=== PATIENT | male | born 1940 | race Caucasian/White ===

== ENCOUNTER → 2016-03-12 | Outpatient (CLI) | payer MEDICARE, OTHER ==
[~2016-03-12] MED LIST: CPR500T PO; DICL50TA6 PO
[2016-03-12 13:02] LABS: BASOPHILS % (AUTO) 0 % (0-10); EOSINOPHILS # (AUTO) 0.2 10^3/uL (0.0-0.3); EOSINOPHILS % (AUTO) 2 % (0-10); LYMPHOCYTES # (AUTO) 1.8 X 10^3 (1.0-4.0); LYMPHOCYTES % (AUTO) 22 % (12-44); MEAN CORPUSCULAR HEMOGLOBIN 32 PG (25-34); MEAN CORPUSCULAR HGB CONC 34 G/DL (32-36); MEAN CORPUSCULAR VOLUME 93 FL (80-99); MEAN PLATELET VOLUME 9.7 FL (7.4-10.4); MONOCYTES # (AUTO) 0.5 X 10^3 (0.0-1.0); MONOCYTES % (AUTO) 6 % (0-12); NEUTROPHILS # (AUTO) 5.9 X 10^3 (1.8-7.8); NEUTROPHILS % (AUTO) 70 % (42-75); PLATELET COUNT 248 10^3/uL (130-400); RED BLOOD COUNT 5.02 10^6/uL (4.35-5.85); RED CELL DISTRIBUTION WIDTH 13.6 % (10.0-14.5); WHITE BLOOD COUNT 8.4 10^3/uL (4.3-11.0)
[2016-03-12 13:44] LABS: ALBUMIN 4.1 G/DL (3.2-4.5); BILIRUBIN,TOTAL 0.6 MG/DL (0.1-1.0); CALCIUM 9.2 MG/DL (8.5-10.1); CREATININE SERUM 1.39 MG/DL (0.60-1.30); POTASSIUM 4.5 MMOL/L (3.6-5.0)
== END ==
LOC: ONC 12:46
PROVIDERS: ATTEND Internal Medicine Hematology & Oncology
DX: Z08 Encounter for follow-up examination after completed treatment for malignant neoplasm (principal); Z85.820 Personal history of malignant melanoma of skin; N18.3 Chronic kidney disease, stage 3 (moderate); M54.5 Low back pain
CPT/HCPCS: 36415; 80053; 83615; 85025; 99213

== ENCOUNTER 2016-06-22 05:41 | Outpatient (CLI) | payer MEDICARE, OTHER ==
[~2016-06-22] VITALS: Ht 177.8 cm; Wt 103.0 kg
[~2016-06-22 05:41] MED LIST changes: -DICL50TA6 PO
[2016-06-22] MEDS ORDERED: DICL50TA6 PO ×2 (10:07)
== END 2016-06-22 10:13 ==
LOC: PREOP 05:41
PROVIDERS: ATTEND Surgery Pediatric Surgery
DX: Z01.818 Encounter for other preprocedural examination (principal); Z12.11 Encounter for screening for malignant neoplasm of colon

== ENCOUNTER 2016-06-24 09:30 | Day surgery (SDC) | payer MEDICARE, OTHER ==
[~2016-06-24] VITALS: Ht 177.8 cm; Wt 103.0 kg
[~2016-06-24 09:30] MED LIST changes: +DICL50TA6 PO
[2016-06-24] MEDS ORDERED: NS IV 500 ML 500 ML ONE (09:38)
[2016-06-24 09:40] VITALS: BP 157/101
[2016-06-24] MEDS ORDERED: NALOXONE 0.4 MG/ML 1 ML (NARCAN) VIAL IVP PRN (09:45)
[2016-06-24] MEDS ORDERED: FLUMAZENIL (ROMAZICON) 0.1 MG/ML 5 ML VIAL INJ PRN (09:45)
[2016-06-24] MEDS ORDERED: NS IV 500 ML 500 ML IV ONE (09:45)
[2016-06-24] MEDS ORDERED: LIDOCAINE JELLY 2% (XYLOCAINE) 5 ML TUBE ONE (10:04)
[2016-06-24] MEDS ORDERED: fentaNYL INJECTION 100 MCG/2 ML AMP ONE ×2 (10:05)
[2016-06-24] MEDS ORDERED: MIDAZOLAM 2 MG/2 ML (VERSED) VIAL ONE ×4 (10:05)
--- NOTE | 2016-06-24 10:15 | Conscious Sedation/ASA ---
Conscious Sedation Pre-Proced Time Reviewed: 09:50 ASA Class: 2 Airway Mallampati Classification: ([facility] appropriate class) I. II. III, IV Lungs Heart ASA score ASA 1: a normal healthy patient ASA 2: a patient with a mild systemic disease (mid diabetes, controlled hypertension, obesity ASA 3: a patient with a severe systemic disease that limits activity (angina , COPD, prior Myocardial infarction) ASA 4: a patient with an incapacitating disease that is a constant threat to life (CHF, renal failure) ASA 5: a moribund patient not expected to survive 24 hrs. (ruptured aneurysm) ASA 6: a declared brain patient whose organs are being harvested. For emergent operations, add the letter E after the classification Grade 2 Sedation Plan: Analgesia, Amnesia, Plan communicated to team members, Discussed options with patient/fam, Discussed risks with patient/fam Note The patient is an appropriate candidate to undergo the planned procedure, sedation, and anesthesia. The patient immediately re-assessed prior to indication. YENNIFER JAMES MD June 24, 2016 10:15 am
--- NOTE | 2016-06-24 10:16 | Progress Note-Pre Operative ---
Pre-Operative Progress Note H&P Reviewed The H&P was reviewed, patient examined and no changes noted. Date H&P Reviewed: June 24, 2016 Time H&P Reviewed: 09:50 Pre-Operative Diagnosis: screening colonoscopy YENNIFER JAMES MD June 24, 2016 10:16 am
[2016-06-24] MEDS: fentaNYL INJECTION 100 MCG/2 ML AMP IVP PRN ×2 (10:20→10:30)
[2016-06-24] MEDS: MIDAZOLAM 2 MG/2 ML (VERSED) VIAL IVP PRN ×3 (10:28→10:35)
[2016-06-24] MEDS ORDERED: HYDROcodone/APAP 5 MG/325 MG (LORTAB) TAB PO PRN (10:30)
[2016-06-24] MEDS ORDERED: ACETAMINOPHEN 325 MG TABLET/CAPLET (TYLENOL) PO PRN (10:30)
[2016-06-24] MEDS ORDERED: ONDANSETRON 4 MG/2 ML (SDV) Z0FRAN IV PRN (10:30)
[2016-06-24] MEDS ORDERED: morphine INJ 10 MG/ML 1ML (SYR OR VIAL) IV PRN (10:30)
--- NOTE | 2016-06-24 10:55 | Progress Note-Post Operative ---
Post-Operative Progess Note Surgeon (s)/Custom Van Converter (s) Surgeon YENNIFER JAMES MD Custom Van Converter: none Pre-Operative Diagnosis screening colonoscopy Post-Operative Diagnosis mild chronic stage 2 ext and int hemorrhoids, moderate sigmoid and descending diverticulosis. Procedure & Operative Findings Date of Procedure 06/24/16 Procedure Preformed/Findings Colonoscopy Anesthesia Type CS Estimated Blood Loss Estimated blood loss (mL): minimal Specimens/Packing Specimens Removed none Packing: none YENNIFER JAMES MD June 24, 2016 10:55 am
--- NOTE | 2016-06-24 10:56 | Discharge Inst-Surgical ---
D/C Lap Instructions-JACOB Follow Up Appt in 2 weeks Activity as tolerated High Fiber Diet 25g or more per day Avoid Alcohol, Caffeine, Spicy [place] and Acid foods. Drink 64 fluid oz or more of fluids per day. Symptoms to Report: Fever over 101 degree F, Nausea/Vomiting If any problems/questions: Contact your physician or go to Emergency Room YENNIFER JAMES MD June 24, 2016 10:56 am
--- NOTE | 2016-06-24 10:57 | Discharge Inst-Surgical ---
D/C Lap Instructions-JACOB Follow Up 10 years Activity as tolerated High Fiber Diet 25g or more per day Avoid Alcohol, Caffeine, Spicy [place] and Acid foods. Drink 64 fluid oz or more of fluids per day. Symptoms to Report: Fever over 101 degree F, Nausea/Vomiting If any problems/questions: Contact your physician or go to Emergency Room YENNIFER JAMES MD June 24, 2016 10:57 am
[2016-06-24 11:10] VITALS: BP 148/99
[2016-06-24 11:15] VITALS: BP 143/99
[2016-06-24 11:40] VITALS: BP 157/98
--- NOTE | 2016-06-24 11:59 | OPERATIVE REPORT ---
DATE OF SERVICE: 06/24/2016 PREOPERATIVE DIAGNOSIS: Screening colonoscopy. POSTOPERATIVE DIAGNOSIS: 1. Chronic stage II external and internal hemorrhoids. 2. Moderate sigmoid and descending colonic diverticulosis. PROCEDURE: Colonoscopy. SURGEON: Dr. James ANESTHESIA: Conscious sedation. ESTIMATED BLOOD LOSS: Minimal. FINDINGS: Chronic stage II external and internal hemorrhoids, not actively edematous nor inflamed and no bleeding. Prostate gland was palpable and appeared normal. There was a moderate severity diverticulosis of the sigmoid and descending colon with no mucosal inflammatory change to indicate any active diverticulitis. There were no polyps identified. DISPOSITION: The patient tolerated the procedure well. The patient is a 76-year-old male in need of a followup colonoscopy. He states that he is doing well and does not report any bowel change and for the most part does not have any major issues of diarrhea nor constipation, as well as no red blood per rectum nor any dark tarry stools. His last colonoscopy was in 2003 which he states was normal. He also does not report any family history of colon cancer. The patient was brought to the endoscopy suite, laid in the left lateral decubitus position. After adequate IV pain and sedative medications and conscious sedation anesthesia, a digital rectal examination was performed. Mild chronic stage II external and internal hemorrhoids were identified which were not actively edematous nor inflamed and no bleeding. Normal sphincter tone was felt and there were no palpable masses. Prostate gland was palpable and appeared normal. The endoscope was then intubated into the anus and rectum and gently insufflated. The endoscope was then advanced to the valves of Arriola up the rectum with no polyps or any neoplasms identified. Through the sigmoid colon, a moderate sigmoid diverticulosis identified. This diverticulosis did extend into the descending colon as well as the splenic flexure. There were no mucosal inflammatory changes to indicate any active diverticulitis. The endoscope was then advanced through the remainder of the transverse and ascending colon to the cecum. These segments were normal. There were no polyps or any neoplasms identified throughout the colon or rectum. The endoscope was then slowly withdrawn when taking a second look and suctioning of residual air with no additional findings. The patient tolerated the procedure well. We will have him continue with medical management with a high fiber diet with at least 30 grams of fiber per day as well as at least 64 fluid ounces of water daily to promote soft stools on a daily basis. He does not need another colonoscopy for another 10 years; however, sooner if any problems arise. Job ID: [id number] DocumentID: [id number] Dictated Date: 06/24/2016 10:53:56 Mechanical Adjuster Date: 06/24/2016 11:59:34 Dictated By: YENNIFER JAMES MD
[2016-06-24 12:00] VITALS: BP 157/98
== END 2016-06-24 12:00 | disposition home or self-care (01) ==
LOC: ENDO 09:30
PROVIDERS: ATTEND Surgery Pediatric Surgery
DX: Z12.11 Encounter for screening for malignant neoplasm of colon (principal); K57.32 Diverticulitis of large intestine without perforation or abscess without bleeding; Z96.641 Presence of right artificial hip joint; Z85.820 Personal history of malignant melanoma of skin; Z79.899 Other long term (current) drug therapy

== ENCOUNTER → 2017-03-25 | Outpatient (CLI) | payer MEDICARE, OTHER ==
[2017-03-25 13:56] LABS: BASOPHILS % (AUTO) 0 % (0-10); EOSINOPHILS # (AUTO) 0.1 10^3/uL (0.0-0.3); EOSINOPHILS % (AUTO) 1 % (0-10); HEMATOCRIT 48 % (40-54); HEMOGLOBIN 16.2 G/DL (13.3-17.7); LYMPHOCYTES # (AUTO) 1.8 X 10^3 (1.0-4.0); LYMPHOCYTES % (AUTO) 13 % (12-44); MEAN CORPUSCULAR HEMOGLOBIN 32 PG (25-34); MEAN CORPUSCULAR HGB CONC 34 G/DL (32-36); MEAN CORPUSCULAR VOLUME 95 FL (80-99); MEAN PLATELET VOLUME 9.8 FL (7.4-10.4); MONOCYTES # (AUTO) 0.9 X 10^3 (0.0-1.0); MONOCYTES % (AUTO) 7 % (0-12); NEUTROPHILS # (AUTO) 10.8 X 10^3 (1.8-7.8); NEUTROPHILS % (AUTO) 79 % (42-75); PLATELET COUNT 234 10^3/uL (130-400); RED BLOOD COUNT 5.03 10^6/uL (4.35-5.85); RED CELL DISTRIBUTION WIDTH 13.4 % (10.0-14.5); WHITE BLOOD COUNT 13.7 10^3/uL (4.3-11.0)
[2017-03-25 14:18] LABS: ALBUMIN 3.9 GM/DL (3.2-4.5); BILIRUBIN,TOTAL 0.7 MG/DL (0.1-1.0); CALCIUM 9.5 MG/DL (8.5-10.1); CREATININE SERUM 1.33 MG/DL (0.60-1.30); POTASSIUM 4.5 MMOL/L (3.6-5.0); TOTAL PROTEIN 6.8 GM/DL (6.4-8.2)
== END ==
LOC: ONC 13:35
PROVIDERS: ATTEND Internal Medicine Hematology & Oncology
DX: Z08 Encounter for follow-up examination after completed treatment for malignant neoplasm (principal); Z85.820 Personal history of malignant melanoma of skin; N18.3 Chronic kidney disease, stage 3 (moderate)
CPT/HCPCS: 36415; 80053; 83615; 85025; 99213

== ENCOUNTER 2017-11-11 13:44 | Outpatient (RCR) | payer MEDICARE, OTHER | END 2017-11-15 07:39 | disposition home or self-care (01) | PROVIDERS: ATTEND Physician Assistant | DX: M54.5 Low back pain (principal) ==

== ENCOUNTER 2017-11-18 10:20 | Outpatient (RCR) | payer MEDICARE, OTHER | END 2017-11-18 11:43 | disposition home or self-care (01) | PROVIDERS: ATTEND Physician Assistant | DX: M54.5 Low back pain (principal) ==

== ENCOUNTER → 2018-03-24 | Outpatient (CLI) | payer MEDICARE, OTHER | LOC: ONC 12:50 | PROVIDERS: ATTEND Internal Medicine Hematology & Oncology | DX: Z08 Encounter for follow-up examination after completed treatment for malignant neoplasm (principal); Z85.820 Personal history of malignant melanoma of skin; Z96.641 Presence of right artificial hip joint; Z79.899 Other long term (current) drug therapy | CPT/HCPCS: 99213 ==

== ENCOUNTER → 2019-02-06 | Outpatient (CLI) | payer MEDICARE, OTHER ==
[2019-02-06 12:10] LABS: BASOPHILS % (AUTO) 0 % (0-10); EOSINOPHILS # (AUTO) 0.1 10^3/uL (0.0-0.3); EOSINOPHILS % (AUTO) 2 % (0-10); HEMATOCRIT 48 % (40-54); HEMOGLOBIN 15.7 G/DL (13.3-17.7); LYMPHOCYTES # (AUTO) 1.3 X 10^3 (1.0-4.0); LYMPHOCYTES % (AUTO) 24 % (12-44); MEAN CORPUSCULAR HEMOGLOBIN 32 PG (25-34); MEAN CORPUSCULAR HGB CONC 33 G/DL (32-36); MEAN CORPUSCULAR VOLUME 96 FL (80-99); MEAN PLATELET VOLUME 9.9 FL (7.4-10.4); MONOCYTES # (AUTO) 0.7 X 10^3 (0.0-1.0); MONOCYTES % (AUTO) 12 % (0-12); NEUTROPHILS # (AUTO) 3.6 X 10^3 (1.8-7.8); NEUTROPHILS % (AUTO) 63 % (42-75); PLATELET COUNT 201 10^3/uL (130-400); RED CELL DISTRIBUTION WIDTH 13.7 % (10.0-14.5); WHITE BLOOD COUNT 5.7 10^3/uL (4.3-11.0)
[2019-02-06 12:29] LABS: BUN/CREATININE RATIO 15; CALCIUM 8.9 MG/DL (8.5-10.1); CARBON DIOXIDE 22 MMOL/L (21-32); CHLORIDE 105 MMOL/L (98-107); CREATININE SERUM 1.05 MG/DL (0.60-1.30); GFR ESTIMATED > 60; GLUCOSE 97 MG/DL (70-105); POTASSIUM 3.9 MMOL/L (3.6-5.0); SODIUM 139 MMOL/L (135-145)
== END ==
LOC: LAB 11:48
PROVIDERS: ATTEND Nurse Practitioner
DX: R19.7 Diarrhea, unspecified (principal); Z79.2 Long term (current) use of antibiotics
CPT/HCPCS: 36415; 80048; 82274; 85025; 87015; 87045; 87046; 87324; 87328; 87329; 87449; 87899

== ENCOUNTER → 2019-03-23 | Outpatient (CLI) | payer MEDICARE, OTHER | LOC: ONC 09:36 | PROVIDERS: ATTEND Internal Medicine Hematology & Oncology | DX: Z08 Encounter for follow-up examination after completed treatment for malignant neoplasm (principal); Z85.820 Personal history of malignant melanoma of skin; Z96.641 Presence of right artificial hip joint; Z79.899 Other long term (current) drug therapy | CPT/HCPCS: 99213 ==

== ENCOUNTER → 2019-04-17 | Outpatient (RCR) | payer MEDICARE, OTHER | END | disposition home or self-care (01) | PROVIDERS: ATTEND Nurse Practitioner | DX: M25.511 Pain in right shoulder (principal) ==

== ENCOUNTER 2019-05-02 11:09 | Outpatient (RCR) | payer MEDICARE, OTHER | END 2019-07-23 | disposition home or self-care (01) | PROVIDERS: ATTEND Nurse Practitioner | DX: M25.511 Pain in right shoulder (principal) ==

== ENCOUNTER → 2019-07-06 | Outpatient (CLI) | payer MEDICARE, OTHER ==
--- NOTE | 2019-07-06 15:02 | Diagnostic Imaging Report ---
EXAMINATION: Chest 2 view HISTORY: Shoulder surgery next week. Preop. COMPARISON: Chest radiograph on 01/10/2014. FINDINGS: The lung volumes are normal. No focal consolidation is seen. No large pleural effusion or pneumothorax is seen. The cardiomediastinal silhouette is normal in size and contour. No acute osseous abnormality is seen. Skin hong are seen in the left axilla. IMPRESSION: 1. No acute pleuroparenchymal process. Dictated by: Dictated on workstation # [id number]
== END ==
LOC: RAD 14:13
PROVIDERS: ATTEND Internal Medicine
DX: Z01.811 Encounter for preprocedural respiratory examination (principal); R91.8 Other nonspecific abnormal finding of lung field
CPT/HCPCS: 71046

== ENCOUNTER 2019-10-09 08:00 | Outpatient (RCR) | payer MEDICARE, OTHER | END 2019-10-10 14:33 | disposition home or self-care (01) | PROVIDERS: ATTEND Orthopaedic Surgery | DX: Z47.1 Aftercare following joint replacement surgery (principal); Z96.611 Presence of right artificial shoulder joint ==

== ENCOUNTER 2019-11-03 09:00 | Outpatient (RCR) | payer MEDICARE, OTHER | END 2020-01-10 | disposition home or self-care (01) | PROVIDERS: ATTEND Physician Assistant | DX: M54.5 Low back pain (principal) ==

== ENCOUNTER 2020-01-26 11:23 | Outpatient (RCR) | payer MEDICARE, OTHER | END 2020-03-24 | disposition home or self-care (01) | PROVIDERS: ATTEND Nurse Practitioner Family | DX: Z96.612 Presence of left artificial shoulder joint (principal) ==

== ENCOUNTER → 2020-04-09 | Outpatient (CLI) | payer MEDICARE, OTHER ==
[2020-04-09 09:03] LABS: BASOPHILS % (AUTO) 1 % (0-10); EOSINOPHILS # (AUTO) 0.1 10^3/uL (0.0-0.3); EOSINOPHILS % (AUTO) 2 % (0-10); HEMATOCRIT 46 % (40-54); HEMOGLOBIN 15.2 g/dL (13.3-17.7); LYMPHOCYTES # (AUTO) 1.3 10^3/uL (1.0-4.0); LYMPHOCYTES % (AUTO) 18 % (12-44); MEAN CORPUSCULAR HEMOGLOBIN 32 pg (25-34); MEAN CORPUSCULAR HGB CONC 33 g/dL (32-36); MEAN CORPUSCULAR VOLUME 96 fL (80-99); MEAN PLATELET VOLUME 9.9 fL (9.0-12.2); MONOCYTES # (AUTO) 0.7 10^3/uL (0.0-1.0); MONOCYTES % (AUTO) 9 % (0-12); NEUTROPHILS # (AUTO) 5.1 10^3/uL (1.8-7.8); NEUTROPHILS % (AUTO) 70 % (42-75); PLATELET COUNT 221 10^3/uL (130-400); WHITE BLOOD COUNT 7.2 10^3/uL (4.3-11.0)
[2020-04-09 09:28] LABS: ALBUMIN 4.1 GM/DL (3.2-4.5); BILIRUBIN,TOTAL 0.8 MG/DL (0.1-1.0); CALCIUM 9.3 MG/DL (8.5-10.1); CREATININE SERUM 1.25 MG/DL (0.60-1.30); POTASSIUM 4.4 MMOL/L (3.6-5.0); TOTAL PROTEIN 6.9 GM/DL (6.4-8.2)
== END ==
LOC: ONC 08:51
PROVIDERS: ATTEND Internal Medicine Hematology & Oncology
DX: C43.62 Malignant melanoma of left upper limb, including shoulder (principal); Z96.611 Presence of right artificial shoulder joint; Z96.612 Presence of left artificial shoulder joint; N18.30 Chronic kidney disease, stage 3 unspecified
CPT/HCPCS: 80053; 83615; 85025; G0463; 99213

== ENCOUNTER 2020-08-15 08:44 | Outpatient (RCR) | payer MEDICARE, OTHER | END 2020-08-21 | disposition home or self-care (01) | PROVIDERS: ATTEND Physician Assistant | DX: M54.16 Radiculopathy, lumbar region (principal) ==

== ENCOUNTER 2020-09-10 15:15 | Outpatient (RCR) | payer MEDICARE, OTHER | END 2020-11-26 | disposition home or self-care (01) | PROVIDERS: ATTEND Physician Assistant | DX: M54.16 Radiculopathy, lumbar region (principal) ==

== ENCOUNTER → 2020-12-12 | Outpatient (CLI) | payer MEDICARE, OTHER | LOC: LABNPT 08:13 | PROVIDERS: ATTEND Internal Medicine | DX: R05.9 Cough, unspecified (principal); R09.89 Other specified symptoms and signs involving the circulatory and respiratory systems; Z20.822 Contact with and (suspected) exposure to COVID-19 | CPT/HCPCS: 87635 ==

== ENCOUNTER 2021-05-14 10:47 | Outpatient (RCR) | payer MEDICARE, OTHER | END 2021-05-15 | disposition home or self-care (01) | PROVIDERS: ATTEND Anesthesiology Pain Medicine | DX: M47.816 Spondylosis without myelopathy or radiculopathy, lumbar region (principal); M41.00 Infantile idiopathic scoliosis, site unspecified; M51.36 Other intervertebral disc degeneration, lumbar region ==

== ENCOUNTER 2021-06-13 11:08 | Outpatient (RCR) | payer MEDICARE, OTHER | END 2021-06-14 | disposition home or self-care (01) | PROVIDERS: ATTEND Anesthesiology Pain Medicine | DX: M47.816 Spondylosis without myelopathy or radiculopathy, lumbar region (principal); M51.36 Other intervertebral disc degeneration, lumbar region; M41.00 Infantile idiopathic scoliosis, site unspecified ==

== ENCOUNTER 2021-07-04 14:20 | Outpatient (RCR) | payer MEDICARE, OTHER | END 2021-07-15 | disposition home or self-care (01) | PROVIDERS: ATTEND Anesthesiology Pain Medicine | DX: M51.36 Other intervertebral disc degeneration, lumbar region (principal); M47.816 Spondylosis without myelopathy or radiculopathy, lumbar region; M41.00 Infantile idiopathic scoliosis, site unspecified ==

== ENCOUNTER 2021-08-13 08:55 | Outpatient (RCR) | payer MEDICARE, OTHER | END 2021-08-14 | disposition home or self-care (01) | PROVIDERS: ATTEND Anesthesiology Pain Medicine | DX: M47.816 Spondylosis without myelopathy or radiculopathy, lumbar region (principal); M51.36 Other intervertebral disc degeneration, lumbar region; M41.00 Infantile idiopathic scoliosis, site unspecified ==

== ENCOUNTER 2021-09-03 10:56 | Outpatient (RCR) | payer MEDICARE, OTHER | END 2021-09-14 | disposition home or self-care (01) | PROVIDERS: ATTEND Anesthesiology Pain Medicine | DX: M47.816 Spondylosis without myelopathy or radiculopathy, lumbar region (principal); M51.36 Other intervertebral disc degeneration, lumbar region; M41.00 Infantile idiopathic scoliosis, site unspecified ==

== ENCOUNTER → 2021-10-15 | Outpatient (RCR) | payer MEDICARE, OTHER | END | disposition home or self-care (01) | PROVIDERS: ATTEND Anesthesiology Pain Medicine | DX: M51.36 Other intervertebral disc degeneration, lumbar region (principal); M47.816 Spondylosis without myelopathy or radiculopathy, lumbar region; M41.00 Infantile idiopathic scoliosis, site unspecified ==

== ENCOUNTER 2021-11-12 08:40 | Outpatient (RCR) | payer MEDICARE, OTHER | END 2021-11-14 | disposition home or self-care (01) | PROVIDERS: ATTEND Anesthesiology Pain Medicine | DX: M47.816 Spondylosis without myelopathy or radiculopathy, lumbar region (principal); M51.36 Other intervertebral disc degeneration, lumbar region; M41.00 Infantile idiopathic scoliosis, site unspecified ==

== ENCOUNTER → 2021-11-20 | Outpatient (CLI) | payer MEDICARE, OTHER ==
--- NOTE | 2021-11-20 16:12 | Diagnostic Imaging Report ---
Indication: Cough. Time of Exam: 2:14 PM Correlation is made with prior chest 07/06/2019. Heart size stable. Lungs are clear. No infiltrates are seen. There is no effusion or pneumothorax. There are surgical clips in the left axilla. Postoperative changes of the bilateral shoulders are noted. IMPRESSION: No acute cardiopulmonary process is detected. Dictated by: Dictated on workstation # [id number]
== END ==
LOC: RAD 13:55
PROVIDERS: ATTEND Internal Medicine
DX: R05.9 Cough, unspecified (principal)
CPT/HCPCS: 71046

== ENCOUNTER 2021-12-09 13:40 | Outpatient (RCR) | payer MEDICARE, OTHER | END 2021-12-15 | disposition home or self-care (01) | PROVIDERS: ATTEND Anesthesiology Pain Medicine | DX: M47.816 Spondylosis without myelopathy or radiculopathy, lumbar region (principal); M51.36 Other intervertebral disc degeneration, lumbar region; M41.00 Infantile idiopathic scoliosis, site unspecified ==

== ENCOUNTER 2022-01-05 15:08 | Emergency (ER) | payer MEDICARE, OTHER ==
[~2022-01-05] VITALS: Ht 177.8 cm; Wt 84.4 kg
--- NOTE | 2022-01-05 15:36 | ED General ---
General Chief Complaint: Cough/Cold/Flu Symptoms Stated Complaint: FLU-LIKE SYMPTOMS Nursing Triage Note: PT AMB TO RM 8 W C/O DECREASED APPETITE, LOSS OF TASTE AND SMELL, HIGH HR, AND FATIGUE X5-6 DAYS. PT A&OX4. Source of Information: Patient Exam Limitations: No Limitations History of Present Illness Date Seen by Provider: Jan 05, 2022 Time Seen by Provider: 15:27 Initial Comments Patient is a 81-year-old male who presents to the emergency department with a chief complaint of feeling "sick", generalized fatigue and malaise, decreased appetite, elevated heart rate and insomnia. Patient states the symptoms have been coming on over the last 5 or 6 days. He tried some melatonin last night but it made him "dizzy". He states that he sleeps maybe 2 hours at a time and cannot get consistent sleep. He is concerned that he is dehydrated because he has had no appetite. He states he is lost his sense of taste and smell. He did have COVID at the end of October. 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 No known sick contacts. Suffers from chronic back pain. Was in [place] today to get some results from an MRI and then decided to come to the emergency department to be evaluated. No fevers or chills, sore throat, runny nose or congestion. No productive cough. No chest pain. No abdominal pain. He did have an episode of diarrhea 1 week ago but that resolved on its own. Normal urination. Chronic numbness and pain down his right leg. All other review of systems reviewed and negative except as stated. Timing/Duration: Other (several weeks) Severity: Moderate Associated Systoms: Loss of Appetite, Malaise, Other (insomnia) Allergies and Home Medications Allergies Coded Allergies: erythromycin base (Verified Allergy, Mild, 06/22/16) Patient Home Medication List Home Medication List Reviewed: Yes Diclofenac Sodium (Diclofenac Sodium) 50 Mg Tablet., 50 MG PO HS, (Reported) Entered as Reported by: ANNA MONTEZ on 06/22/16 1007 Review of Systems Review of Systems Constitutional: see HPI, malaise EENTM: no symptoms reported Respiratory: short of breath Cardiovascular: no symptoms reported Gastrointestinal: loss of appetite Genitourinary: no symptoms reported Musculoskeletal: back pain (chronic) Skin: no symptoms reported Psychiatric/Neurological: No Symptoms Reported Past Ylkjrjg-Tdpwvu-Ajueqi Hx Patient Social History Tobacco Use?: No Use of E-Cig and/or Vaping dev: No Substance use?: No Alcohol Use?: No Immunizations Up To Date First/Initial COVID19 Vaccinat: 2020 Second COVID19 Vaccination Jarvis: NONE Third COVID19 Vaccination Date: NONE COVID19 Vaccine 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 0.0oz. 102.889172uy; 26.00 BMI Method: General Appearance: No Apparent Distress, WD/WN Eyes: Bilateral Eye Normal Inspection, Bilateral Eye PERRL, Bilateral Eye EOMI HEENT: PERRL/EOMI Neck: Normal Inspection Respiratory: Lungs Clear, Normal Breath Sounds, No Accessory Muscle Use, No Respiratory Distress Cardiovascular: Regular Rate, Rhythm, Normal Peripheral Pulses Gastrointestinal: Normal Bowel Sounds, Soft Extremity: Normal Capillary Refill, Normal Inspection, Normal Range of Motion, Non Tender Neurologic/Psychiatric: Alert, Oriented x3, No Motor/Sensory Deficits, Normal Mood/Affect, assembler body II-XII Norm as Tested Skin: Normal Color, Warm/Dry Progress/Results/Core Measures Suspected Sepsis SIRS Temperature: Pulse: 113 Respiratory Rate: 20 Laboratory Tests 01/05/22 15:30: White Blood Count 10.0 Blood Pressure 137 /93 Mean: 108 Laboratory Tests 01/05/22 15:30: Creatinine 1.15, Platelet Count 250 Results/Orders Lab Results Laboratory Tests Test 01/05/22 15:25 01/05/22 15:30 01/05/22 16:35 Range/Units Influenza Type A Antigen NEGATIVE NEGATIVE Influenza Type B Antigen NEGATIVE NEGATIVE White Blood Count 10.0 4.3-11.0 10^3/uL Red Blood Count 4.34 4.30-5.52 10^6/uL Hemoglobin 14.0 13.3-17.7 g/dL Hematocrit 42 40-54 % Mean Corpuscular Volume 97 80-99 fL Mean Corpuscular Hemoglobin 32 25-34 pg Mean Corpuscular Hemoglobin Concent 33 32-36 g/dL Red Cell Distribution Width 14.0 10.0-14.5 % Platelet Count 250 130-400 10^3/uL Mean Platelet Volume 10.0 9.0-12.2 fL Immature Granulocyte % (Auto) 0 % Neutrophils (%) (Auto) 81 H 42-75 % Lymphocytes (%) (Auto) 11 L 12-44 % Monocytes (%) (Auto) 6 0-12 % Eosinophils (%) (Auto) 1 0-10 % Basophils (%) (Auto) 0 0-10 % Neutrophils # (Auto) 8.2 H 1.8-7.8 X 10^3 Lymphocytes # (Auto) 1.1 1.0-4.0 X 10^3 Monocytes # (Auto) 0.6 0.0-1.0 X 10^3 Eosinophils # (Auto) 0.1 0.0-0.3 10^3/uL Basophils # (Auto) 0.0 0.0-0.1 10^3/uL Immature Granulocyte # (Auto) 0.0 0.0-0.1 10^3/uL Sodium Level 134 L 135-145 MMOL/L Potassium Level 3.7 3.6-5.0 MMOL/L Chloride Level 99 98-107 MMOL/L Carbon Dioxide Level 23 21-32 MMOL/L Anion Gap 12 5-14 MMOL/L Blood Urea Nitrogen 22 H 7-18 MG/DL Creatinine 1.15 0.60-1.30 MG/DL Estimat Glomerular Filtration Rate 65 BUN/Creatinine Ratio 19 Glucose Level 119 H 70-105 MG/DL Calcium Level 9.4 8.5-10.1 MG/DL Urine Color YELLOW Urine Clarity CLEAR Urine pH 5.5 5-9 Urine Specific [place] 1.010 L 1.016-1.022 Urine Protein NEGATIVE NEGATIVE Urine Glucose (UA) NEGATIVE NEGATIVE Urine Ketones NEGATIVE NEGATIVE Urine Nitrite NEGATIVE NEGATIVE Urine Bilirubin NEGATIVE NEGATIVE Urine Urobilinogen 1.0 < = 1.0 MG/DL Urine Leukocyte Esterase NEGATIVE NEGATIVE Urine RBC (Auto) NEGATIVE NEGATIVE Urine RBC NONE /HPF Urine WBC NONE /HPF Urine Squamous Epithelial Cells NONE /HPF Urine Crystals NONE /LPF Urine Bacteria TRACE /HPF Urine Casts NONE /LPF Urine Mucus NEGATIVE /LPF Urine Culture Indicated NO My Orders Orders - SAÚL RIBEIRO MD Influenza A & B Antigens (01/05/22 15:31) Cbc With Automated Diff (01/05/22 15:31) Basic Metabolic Panel (01/05/22 15:31) Ns Iv 500 Ml (Sodium Chloride 0.9%) (01/05/22 16:07) Ua Culture If Indicated (01/05/22 16:35) Vital Signs/I&O 01/05/22 01/05/22 15:21 17:21 Temp 36.4 Pulse 113 Resp 20 B/P (MAP) 137/93 (108) 137/96 Pulse Ox 99 O2 Delivery Room Air Capillary Refill : Less Than 3 Seconds Blood Pressure Mean: 108 Progress Note : Progress Note Patient seen and evaluated. Concern for fatigue and mailaise and decreased appetite. Basic labs ordered and reviewed - reassuring/WNL. VSS. No clinical or objective findings to warrant further studies or admission. Does not have COVID. No concerning findings for sepsis. Departure Impression Primary Impression: Malaise and fatigue Additional Impressions: Insomnia Qualified Codes: G47.00 - Insomnia, unspecified Poor appetite Chronic back pain Qualified Codes: M54.41 - Lumbago with sciatica, right side; G89.29 - Other chronic pain Disposition: 01 HOME, SELF-CARE Condition: Improved Departure-Patient Inst. Decision time for Depature: 17:04 Referrals: LONI RICHARDSON MD (PCP) Primary Care Physician Patient Instructions: Fatigue ED Add. Discharge Instructions: Drink plenty of fluids to stay well-hydrated. Continue your daily medications as prescribed by Dr. Richardson. Frequent small meals throughout the day to keep your nutrition up. Please call Dr. Richardson's office tomorrow to schedule a follow-up appointment at the beginning of next week. Return to the emergency department for any new, concerning or emergent complaints. Copy Copies To 1: LONI RICHARDSON MD, KATHRYN M MD Jan 05, 2022 15:36
[2022-01-05 15:50] LABS: BASOPHILS % (AUTO) 0 % (0-10); EOSINOPHILS # (AUTO) 0.1 10^3/uL (0.0-0.3); EOSINOPHILS % (AUTO) 1 % (0-10); HEMATOCRIT 42 % (40-54); LYMPHOCYTES # (AUTO) 1.1 X 10^3 (1.0-4.0); LYMPHOCYTES % (AUTO) 11 % (12-44); MEAN CORPUSCULAR HEMOGLOBIN 32 pg (25-34); MEAN CORPUSCULAR HGB CONC 33 g/dL (32-36); MEAN CORPUSCULAR VOLUME 97 fL (80-99); MONOCYTES # (AUTO) 0.6 X 10^3 (0.0-1.0); MONOCYTES % (AUTO) 6 % (0-12); NEUTROPHILS # (AUTO) 8.2 X 10^3 (1.8-7.8); NEUTROPHILS % (AUTO) 81 % (42-75); PLATELET COUNT 250 10^3/uL (130-400)
[2022-01-05 15:52] LABS: POTASSIUM 3.7 MMOL/L (3.6-5.0)
[2022-01-05 15:53] LABS: CALCIUM 9.4 MG/DL (8.5-10.1)
[2022-01-05 15:57] LABS: CREATININE SERUM 1.15 MG/DL (0.60-1.30)
[2022-01-05] MEDS ORDERED: NS IV 500 ML 500 ML IV STA (16:07)
[2022-01-05 16:40] LABS: BILIRUBIN,URINE NEGATIVE (NEGATIVE); CLARITY,URINE CLEAR; COLOR,URINE YELLOW; GLUCOSE, URINE (UA) NEGATIVE (NEGATIVE); KETONES,URINE NEGATIVE (NEGATIVE); LEUKOCYTE ESTERASE ,URINE NEGATIVE (NEGATIVE); NITRITE,URINE NEGATIVE (NEGATIVE); PH,URINE 5.5 (5-9); PROTEIN,URINE NEGATIVE (NEGATIVE)
[2022-01-05 16:55] LABS: BACTERIA,URINE TRACE /HPF
[2022-01-05 17:21] VITALS: BP 137/96
== END 2022-01-05 17:20 | disposition home or self-care (01) ==
LOC: EDUNIT# 15:08 → ER 15:10
DX: R53.81 Other malaise (principal); R53.83 Other fatigue; G47.00 Insomnia, unspecified; R63.0 Anorexia; M54.9 Dorsalgia, unspecified; G89.29 Other chronic pain; Z86.16 Personal history of COVID-19
CPT/HCPCS: 36415; 80048; 81000; 85025; 87804; 99283

== ENCOUNTER 2022-01-06 13:24 | Outpatient (RCR) | payer MEDICARE, OTHER | END 2022-01-14 | disposition home or self-care (01) | PROVIDERS: ATTEND Anesthesiology Pain Medicine | DX: M47.816 Spondylosis without myelopathy or radiculopathy, lumbar region (principal); M51.36 Other intervertebral disc degeneration, lumbar region; M41.00 Infantile idiopathic scoliosis, site unspecified ==

== ENCOUNTER 2022-01-15 12:09 | Inpatient (IN) | payer MEDICARE, OTHER ==
[~2022-01-15] VITALS: Ht 177.8 cm; Wt 88.0 kg
[~2022-01-15 12:09] MED LIST changes: -ASPI-1238 PO; -ATOR40TA70 PO; -BENZ-36 PO; -CHOL10007 PO; -DOCU-26 PO; -FLUT16SP22 NSEACH; -LISI20TA26 PO
[2022-01-15 13:10] LABS: BASOPHILS % (AUTO) 0 % (0-10); EOSINOPHILS % (AUTO) 0 % (0-10); HEMATOCRIT 40 % (40-54); HEMOGLOBIN 13.7 g/dL (13.3-17.7); LYMPHOCYTES # (AUTO) 0.3 10^3/uL (1.0-4.0); LYMPHOCYTES % (AUTO) 5 % (12-44); MEAN CORPUSCULAR HEMOGLOBIN 33 pg (25-34); MEAN CORPUSCULAR HGB CONC 34 g/dL (32-36); MEAN CORPUSCULAR VOLUME 95 fL (80-99); MEAN PLATELET VOLUME 9.9 fL (9.0-12.2); MONOCYTES # (AUTO) 0.8 10^3/uL (0.0-1.0); MONOCYTES % (AUTO) 11 % (0-12); NEUTROPHILS # (AUTO) 5.8 10^3/uL (1.8-7.8); NEUTROPHILS % (AUTO) 84 % (42-75); PLATELET COUNT 237 10^3/uL (130-400); WHITE BLOOD COUNT 6.9 10^3/uL (4.3-11.0)
[2022-01-15] MEDS ORDERED: NS IV 1000 ML 1,000 ML IV SCH ×2 (13:30→15:45)
[2022-01-15 13:38] LABS: ALBUMIN 4.1 GM/DL (3.2-4.5); POTASSIUM 4.1 MMOL/L (3.6-5.0)
[2022-01-15 13:40] LABS: CALCIUM 9.2 MG/DL (8.5-10.1)
[2022-01-15 13:41] LABS: TOTAL PROTEIN 7.2 GM/DL (6.4-8.2)
[2022-01-15 13:43] LABS: BILIRUBIN,TOTAL 1.4 MG/DL (0.1-1.0)
[2022-01-15 13:45] LABS: CREATININE SERUM 0.88 MG/DL (0.60-1.30)
[2022-01-15 14:01] LABS: ATYPICAL LYMPHOCYTES 1 %; LYMPHOCYTES % (MANUAL) 5 %; MONOCYTES % (MANUAL) 5 %; NEUTROPHILS % (MANUAL) 89 %
--- NOTE | 2022-01-15 14:11 | ED General ---
General Chief Complaint: Cough/Cold/Flu Symptoms Stated Complaint: FLU A + Nursing Triage Note: PT ARRIVED POV WITH COMPLAINTS OF WEAKNESS, COUGH, AND DEHYDRATION. PT TESTED POSITIVE FOR FLU A YESTERDAY AND WAS REFERED TO ER BY DR. VIRK. Source of Information: Patient Exam Limitations: No Limitations History of Present Illness Date Seen by Provider: Jan 15, 2022 Time Seen by Provider: 12:50 Initial Comments Patient is a 81-year-old male who presents to the emergency department for evaluation of weakness, cough, and dehydration. Patient was seen at his PCPs office and referred here for further evaluation. This is day 5 or 6 of the patient's symptoms. He did test positive for flu a yesterday. Patient's also has influenza a and is currently admitted. Chest x-ray was obtained at the PCPs office and there was concern for possible bilateral lower lobe pneumonia. Patient denies any vomiting or diarrhea but states he has not been able to eat or drink much in the last few days. Patient did not receive flu immunization this year Allergies and Home Medications Allergies Coded Allergies: erythromycin base (Verified Allergy, Mild, 06/22/16) Patient Home Medication List Home Medication List Reviewed: Yes Diclofenac Sodium (Diclofenac Sodium) 50 Mg Tablet., 50 MG PO HS, (Reported) Entered as Reported by: ANNA MONTEZ on 06/22/16 1007 Review of Systems Review of Systems Constitutional: see HPI, malaise, weakness EENTM: no symptoms reported Respiratory: see HPI, cough, short of breath Cardiovascular: no symptoms reported Gastrointestinal: no symptoms reported Genitourinary: no symptoms reported Musculoskeletal: see HPI, muscle pain Past Swcwtpw-Habnxo-Waefvh Hx Patient Social History Tobacco Use?: No Substance use?: No Alcohol Use?: No Immunizations Up To Date First/Initial COVID19 Vaccinat: 2020 Second COVID19 Vaccination Jarvis: NONE Third COVID19 Vaccination Date: NONE Seasonal Allergies Seasonal Allergies: Yes Past Medical History Reproductive Disorders: No Sexually Transmitted Disease: No HIV/AIDS: No Arthritis, Chronic Back Pain Loss of Vision: Bilateral Hearing Impairment: Denies Melanoma Adverse Reaction/Blood Tranf: No (N/A) Physical Exam Vital Signs Vital Signs - First Documented Capillary Refill : Height, Weight, BMI Height: 5'10.00" Weight: 227lbs. 0.0oz. 102.642136dx; 27.00 BMI Method: General Appearance: No Apparent Distress, WD/WN HEENT: PERRL/EOMI, TMs Normal, Normal ENT Inspection, Pharynx Normal Neck: Full Range of Motion, Normal Inspection, Non Tender, Supple Respiratory: Chest Non Tender, Lungs Clear, Normal Breath Sounds Cardiovascular: Regular Rate, Rhythm, Normal Peripheral Pulses Extremity: Normal Capillary Refill, Normal Inspection, Normal Range of Motion, No Calf Tenderness Neurologic/Psychiatric: Alert, Oriented x3, No Motor/Sensory Deficits, Normal Mood/Affect Skin: Normal Color, Warm/Dry Progress/Results/Core Measures Suspected Sepsis SIRS Temperature: Pulse: 106 Respiratory Rate: Laboratory Tests 01/15/22 13:07: White Blood Count 6.9 Blood Pressure 148 /101 Mean: 117 Laboratory Tests 01/15/22 13:07: Creatinine 0.88, Platelet Count 237, Total Bilirubin 1.4H Results/Orders Lab Results Laboratory Tests Test 01/15/22 13:07 Range/Units White Blood Count 6.9 4.3-11.0 10^3/uL Red Blood Count 4.21 L 4.30-5.52 10^6/uL Hemoglobin 13.7 13.3-17.7 g/dL Hematocrit 40 40-54 % Mean Corpuscular Volume 95 80-99 fL Mean Corpuscular Hemoglobin 33 25-34 pg Mean Corpuscular Hemoglobin Concent 34 32-36 g/dL Red Cell Distribution Width 13.6 10.0-14.5 % Platelet Count 237 130-400 10^3/uL Mean Platelet Volume 9.9 9.0-12.2 fL Immature Granulocyte % (Auto) 0 % Neutrophils (%) (Auto) 84 H 42-75 % Lymphocytes (%) (Auto) 5 L 12-44 % Monocytes (%) (Auto) 11 0-12 % Eosinophils (%) (Auto) 0 0-10 % Basophils (%) (Auto) 0 0-10 % Neutrophils # (Auto) 5.8 1.8-7.8 10^3/uL Lymphocytes # (Auto) 0.3 L 1.0-4.0 10^3/uL Monocytes # (Auto) 0.8 0.0-1.0 10^3/uL Eosinophils # (Auto) 0.0 0.0-0.3 10^3/uL Basophils # (Auto) 0.0 0.0-0.1 10^3/uL Immature Granulocyte # (Auto) 0.0 0.0-0.1 10^3/uL Neutrophils % (Manual) 89 % Lymphocytes % (Manual) 5 % Monocytes % (Manual) 5 % Atypical Lymphocytes 1 % Sodium Level 123 *L 135-145 MMOL/L Potassium Level 4.1 3.6-5.0 MMOL/L Chloride Level 89 L 98-107 MMOL/L Carbon Dioxide Level 23 21-32 MMOL/L Anion Gap 11 5-14 MMOL/L Blood Urea Nitrogen 19 H 7-18 MG/DL Creatinine 0.88 0.60-1.30 MG/DL Estimat Glomerular Filtration Rate 87 BUN/Creatinine Ratio 22 Glucose Level 116 H 70-105 MG/DL Calcium Level 9.2 8.5-10.1 MG/DL Corrected Calcium 9.1 8.5-10.1 MG/DL Total Bilirubin 1.4 H 0.1-1.0 MG/DL Aspartate Amino Transf (AST/SGOT) 24 5-34 U/L Alanine Aminotransferase (ALT/SGPT) 28 0-55 U/L Alkaline Phosphatase 60 40-136 U/L Troponin I 0.166 H <0.028 NG/ML Total Protein 7.2 6.4-8.2 GM/DL Albumin 4.1 3.2-4.5 GM/DL My Orders Orders - SYLVESTER VILLANUEVA APRN Cbc With Automated Diff (01/15/22 12:58) Comprehensive Metabolic Panel (01/15/22 12:58) Troponin I [place] (01/15/22 12:58) Ekg Tracing (01/15/22 12:58) Iv/Invasive Line Insertion .IV INSERT (01/15/22 12:58) Ns Iv 1000 Ml (Sodium Chloride 0.9%) (01/15/22 13:30) Manual Differential (01/15/22 13:07) Metoprolol Succinate (Xl) Tab (Toprol Xl (01/15/22 14:15) Aspirin Chewable Tablet (Baby Aspirin Ch (01/15/22 14:15) Ed Admission (Communication) (01/15/22 14:47) Code/Resuscitation (01/15/22 14:47) Medications Given in ED Current Medications Medications Dose Ordered Sig/Yahir Route Start Time Stop Time Status Last Admin Dose Admin Aspirin 81 mg ONCE ONCE PO 01/15/22 14:15 01/15/22 14:16 DC 01/15/22 14:25 81 MG Vital Signs/I&O 01/15/22 01/15/22 12:49 12:49 Temp 36.9 Pulse 106 B/P (MAP) 148/101 (117) Pulse Ox 97 O2 Delivery Room Air Room Air Capillary Refill : Blood Pressure Mean: 117 Progress Note : Progress Note Patient is nontoxic and well-hydrated on exam. Vital signs are reassuring. No adventitious lung sounds or increased work of breathing noted on exam. Review of the chest x-ray obtained here earlier by order of PCP is largely unr emarkable. Laboratory evaluation notable for hyponatremia. Patient was given a liter of normal saline. Will admit for further evaluation and treatment. Patient updated on plan of care and understanding verbalized. Hospitalist kindly agreed to admit. Elevated troponin also noted. Patient denies any specific chest pain, diaphoresis, or other concerns of acute ACS. I spoke with Dr. Rudd with cardiology who recommended patient be started on daily 81 mg aspirin and daily Toprol-XL at a dose of 50 mg. Initial doses of both medications were given in the ER. Departure Impression Primary Impression: Influenza A Additional Impression: Hyponatremia Disposition: HOME, SELF-CARE Condition: Stable Admissions Decision to Admit Reason: Admit from ER (General) Decision to Admit/Date: Jan 15, 2022 Time/Decision to Admit Time: 14:00 Departure-Patient Inst. Referrals: LONI VIRK MD (PCP/Family) Primary Care Physician SYLVESTER VILLANUEVA APRN Jan 15, 2022 14:11
[2022-01-15] MEDS ORDERED: ASPIRIN 81 MG CHEW (CHILDREN'S ASA) PO ONE (14:15)
[2022-01-15] MEDS ORDERED: meTOproloL SUCCINATE 50 MG (TOPROL XL) TAB PO SCH (14:15)
--- NOTE | 2022-01-15 14:33 | Consultation-Cardiology ---
HPI-Cardiology Cardiology Consultation: Date of Consultation 01/15/22 Time Seen by a Provider: 15:20 Date of Admission 01-15-22 Attending Physician Loni Virk MD Admitting Physician Admitting Physician: Attending Physician: Consulting Physician Dallas Rudd MD HPI: Chief Complaint: NSTEMI vs Type 2 PR Mr. Jones is a 81 yr old male admitted to [facility] from the ED with increasing weakness, poor appetite, hyponatremia, Influenza A (+) and positive troponin. He states he had COVID at the end of October and has had some persistent malaise along with poor appetite since then. He reports several weeks ago he developed localized, left sided chest pressure. He states he saw Dr. Glass (primary writer producer) and had a stress test approx 5 weeks ago which was abnormal per his report. He reports he was to have a cardiac cath today, but d/t feeling progressively worse so he was advised to go to the ED. He reports his is currently hospitalized here with Influenza A as well. He reports he had a significant cough for about 2 days. This has improved, but not resolved. He does not report any chest pressure at this time; mostly congestion and wheezing. He denies any n/v/d. He reports bilat LE swelling which also developed several weeks ago and has become increasing worse. He states Dr. Glass gave him a fluid pill to take, but he has not taken it. Review of Systems-Cardiology Review of Systems Constitutional: No chills, No fever; malaise Eyes: No blurred vision, No vision change Ears/Nose/Throat: No epistaxis, No recent hearing loss Respiratory: As described under HPI Cardiovascular: As described under HPI Gastrointestinal: As described under HPI Genitourinary: No dysuria Skin: No rash on exposed areas, No ulcerations on exposed areas Psychiatric/Neurological: No anxiety, No depression, No seizure, No focal weakness, No syncope Hematologic: No bleeding abnormalities RLC-Wvqxev-Vdujey Hx Patient Social History Alcohol Use?: No Immunizations Up To Date Date of Influenza Vaccine: Nov 25, 2015 Past Medical History PMH As described under Assessment. Family Medical History Family Medical History: He denies any family h/o CAD. He reports his sons bot have HTN. Allergies and Home Medications Allergies Coded Allergies: erythromycin base (Verified Allergy, Mild, 06/22/16) Patient Home Medication List Diclofenac Sodium (Diclofenac Sodium) 50 Mg Tablet., 50 MG PO HS, (Reported) Entered as Reported by: ANNA MONTEZ on 06/22/16 1007 Physical Exam-Cardiology Physical Exam Vital Signs/I&O 01/16/22 01/16/22 01/16/22 01/16/22 00:41 02:32 03:26 07:33 Temp 36.8 36.7 Pulse 86 95 Resp 18 18 B/P (MAP) 124/80 (95) 152/97 (115) Pulse Ox 98 98 96 95 O2 Delivery Room Air Room Air Room Air Room Air O2 Flow Rate 0.00 01/16/22 08:49 Temp 36.4 Pulse 103 Resp 19 B/P (MAP) 163/100 (121) Pulse Ox 99 O2 Flow Rate 2.50 01/16/22 00:00 Intake Total 1686 ml Balance 1686 ml Capillary Refill : Constitutional: AAO x 3, well-developed, well-nourished, other (appears fatigue d) HEENT: PERRL, hearing is well preserved, oral hygience is good Neck: No carotid bruit; carotid pulses are 2 + bilaterally Respiratory: No accessory muscle use, No respiratory distress; chest expansion is symmetric, chest is bilaterally symmetric, rhonchi (with expiration throughout), other (diminished based bilat) Cardiovascular: regular rate-rhythm; No JVD; tachycardia Gastrointestinal: No tender; soft, round, audible bowel sounds Extremities: other (mod bilat LE swelling) Neurologic/Psychiatric: grossly intact (moves all extremities) Skin: No rash on exposed areas, No ulcerations on exposed areas Data Review Labs Laboratory Tests 01/15/22 13:07: White Blood Count 6.9, Red Blood Count 4.21L, Hemoglobin 13.7, Hematocrit 40, Mean Corpuscular Volume 95, Mean Corpuscular Hemoglobin 33, Mean Corpuscular Hemoglobin Concent 34, Red Cell Distribution Width 13.6, Platelet Count 237, Mean Platelet Volume 9.9, Immature Granulocyte % (Auto) 0, Neutrophils (%) (Auto) 84H, Lymphocytes (%) (Auto) 5L, Monocytes (%) (Auto) 11, Eosinophils (%) (Auto) 0, Basophils (%) (Auto) 0, Neutrophils # (Auto) 5.8, Lymphocytes # (Auto) 0.3L, Monocytes # (Auto) 0.8, Eosinophils # (Auto) 0.0, Basophils # (Auto) 0.0, Immature Granulocyte # (Auto) 0.0, Neutrophils % (Manual) 89, Lymphocytes % (Manual) 5, Monocytes % (Manual) 5, Atypical Lymphocytes 1, Sodium Level 123*L, Potassium Level 4.1, Chloride Level 89L, Carbon Dioxide Level 23, Anion Gap 11, Blood Urea Nitrogen 19H, Creatinine 0.88, Estimat Glomerular Filtration Rate 87, BUN/Creatinine Ratio 22, Glucose Level 116H, Calcium Level 9.2, Corrected Calcium 9.1, Total Bilirubin 1.4H, Aspartate Amino Transf (AST/SGOT) 24, Alanine Aminotransferase (ALT/SGPT) 28, Alkaline Phosphatase 60, Troponin I 0.166H, Total Protein 7.2, Albumin 4.1 01/15/22 16:02: Troponin I 0.175H 01/15/22 18:34: Sodium Level 122*L, Potassium Level 4.1, Chloride Level 90L, Carbon Dioxide Level 20L, Anion Gap 12, Blood Urea Nitrogen 18, Creatinine 0.81, Estimat Glomerular Filtration Rate 90, BUN/Creatinine Ratio 22, Glucose Level 149H, Calcium Level 8.5, Troponin I 0.177H 01/16/22 06:08: White Blood Count 7.0, Red Blood Count 3.92L, Hemoglobin 12.8L, Hematocrit 38L, Mean Corpuscular Volume 96, Mean Corpuscular Hemoglobin 33, Mean Corpuscular Hemoglobin Concent 34, Red Cell Distribution Width 13.7, Platelet Count 220, Mean Platelet Volume 10.0, Sodium Level 125*L, Potassium Level 4.1, Chloride Level 95L, Carbon Dioxide Level 18L, Anion Gap 12, Blood Urea Nitrogen 18, Creatinine 0.75, Estimat Glomerular Filtration Rate 92, BUN/Creatinine Ratio 24, Glucose Level 103, Calcium Level 8.4L, Magnesium Level 1.9 Radiology NAME: MIGUEL JONES [facility] REC#: [id number] PT STATUS: REG CLI : 1940 PHYSICIAN: LONI VIRK MD ADMIT DATE: 01/15/22/RAD Draft Date of Exam:01/15/22 CHEST PA/LAT (2 VIEW) CHEST PA/LAT (2 VIEW) Indication: Cough and influenza Comparison: 11/20/2021 Findings: Bibasilar hazy airspace and interstitial opacities have developed. No pleural effusion or pneumothorax. Normal heart size and mediastinal contours. Impression: New basilar pulmonary opacities may be due to atypical infection, such as viral pneumonia. Dictated on workstation # [id number] Dict: 01/15/22 1447 Trans: 01/15/22 1448 [facility] [id number] Interpreted by: NATALYA GARCIA MD Electronically signed by: A/P-Cardiology Assessment/Admission Diagnosis Influenza A (+) Pneumonia - management per medical services NSTEMI vs Type 2 PR - reports abnormal MPI approx [address] Glass (was scheduled to have a cardiac cath today) Tachycardia Hyponatremia Poor appetite HTN HLD - statin tx COVID (+) in October 2021 Discussion and Recomendations Influenza A with pneumonia - management per medical services NSTEMI vs Type 2 PR - Advise ASA, Plavix, BB - reports abnormal MPI by Dr. Glass for which he was to have a cardiac cath today, but was unable d/t illness Hyponatremia - management per medical services Echocardiogram Monitor lab Replace electrolytes as indicated Further recs will be based on his hospital course We would like to thank medical services for this consult MAMADOU MONTERROSO Jan 15, 2022 14:33
[2022-01-15] MEDS ORDERED: ONDANSETRON 4 MG/2 ML (SDV) Z0FRAN IV PRN (15:45)
[2022-01-15] MEDS ORDERED: MILK OF MAGNESIA 400 MG/5 ML 30 ML UDC PO PRN (15:45)
[2022-01-15] MEDS ORDERED: ANTACID SUSP 30 ML UDC (MYLANTA) PO PRN (15:45)
[2022-01-15] MEDS ORDERED: ONDANSETRON 4 MG (ZOFRAN) ORAL DISSOLVE TAB PO PRN (15:45)
[2022-01-15] MEDS ORDERED: polyethylene glycoL POWDER 17 GM (MIRALAX) PACK PO PRN (15:45)
[2022-01-15] MEDS ORDERED: LACTULOSE SYRUP 10GM/15ML (ENULOSE) 30ML UDC PO PRN (15:45)
[2022-01-15] MEDS ORDERED: CALCIUM CARBONATE 500 MG (TUMS) TAB.CHEW PO PRN (15:45)
[2022-01-15] MEDS ORDERED: BISACODYL 10 MG SUPP (DULCOLAX) PR PRN (15:45)
[2022-01-15 15:56] VITALS: BP 148/101
--- NOTE | 2022-01-15 15:59 | History & Physical-Hospitalist ---
History of Present Illness HPI/Chief Complaint Patient is a 81-year-old male with past medical history of hypertension, hyperlipidemia and recent failed stress test who presented to the emergency department due to generalized weakness and poor oral intake. He recently had COVID at the end of October and since that time has had no taste. He then was diagnosed with flu A this week and has continued to have poor oral intake and has been very weak. He did have a cough for few days but feels that this is improving now. He was seen by his primary care PA today and referred to the emergency department due to his weakness. He was found to be quite hy ponatremic with a sodium of 123 also had an elevated troponin. He was actually scheduled to have a cardiac cath today but that was canceled due to his current illness. He was admitted to the floor for further management. Source: patient Date Seen 01/15/22 Time Seen by a Provider: 15:50 Attending Physician Junior Richardson MD PCP Admitting Physician: Aly Urbano MD Attending Physician: Aly Urbano MD Referring Physician Date of Admission Jan 15, 2022 at 14:48 Home Medications & Allergies Home Medications Reviewed patient Home Medication Reconciliation performed by pharmacy medication reconciliations wildlife biology technician and/or nursing. Patients Allergies have been reviewed. Allergies Allergies Coded Allergies erythromycin base (Verified Allergy, Mild, 06/22/16) Past Wpvbyid-Gzzygq-Hfbrvd Hx Patient Social History Tobacco Use?: No Substance use?: No Alcohol Use?: No Immunizations Up To Date Date of Influenza Vaccine: Nov 25, 2015 First/Initial COVID19 Vaccinat: 2020 Second COVID19 Vaccination Jarvis: NONE Seasonal Allergies Seasonal Allergies: Yes Current Status Primary Language: Mozambican Preferred Spoken Language: Mozambican Past Medical History Sexually Transmitted Disease: No HIV/AIDS: No Arthritis, Chronic Back Pain Loss of Vision: Bilateral Hearing Impairment: Denies Melanoma Adverse Reaction/Blood Tranf: No (N/A) Review of Systems Constitutional: fever, malaise, weakness EENTM: no symptoms reported Respiratory: cough, short of breath Cardiovascular: no symptoms reported Gastrointestinal: loss of appetite Genitourinary: no symptoms reported Musculoskeletal: see HPI Skin: no symptoms reported Psychiatric/Neurological: No Symptoms Reported Physical Exam Physical Exam Vital Signs Vital Signs - First Documented 01/15/22 01/15/22 01/15/22 15:56 16:03 22:02 Resp 17 O2 Flow Rate 0.00 FiO2 21 Capillary Refill : Height, Weight, BMI Height: 5'10.00" Weight: 227lbs. 0.0oz. 102.709713mp; 27.00 BMI Method: General Appearance: No Apparent Distress, WD/WN HEENT: PERRL/EOMI, Moist Mucous Membranes Neck: Normal Inspection, Supple Respiratory: No Accessory Muscle Use, No Respiratory Distress, Decreased Breath Sounds Cardiovascular: Regular Rate, Rhythm, No JVD, No Murmur Gastrointestinal: Normal Bowel Sounds, Non Tender, Soft Extremity: Normal Capillary Refill, Pedal Edema Neurologic/Psychiatric: Alert, Oriented x3, Normal Mood/Affect Skin: Normal Color, Warm/Dry Results Results/Procedures Labs Laboratory Tests 01/15/22 13:07 01/15/22 18:34 01/16/22 06:08 01/16/22 17:42 01/17/22 05:34 Patient resulted labs reviewed. Assessment/Plan Admission Diagnosis NSTEMI Admission Status: Inpatient Order (span 2 midnights) Reason for Inpatient Admission: see below Assessment and Plan NSTEMI HTN HLD Recently failed stress test with Dr Glass Cardiology consulted, appreciate recs ASA and Toprol XL given in ER Nathalia, LEATHER CLEANER at bedside to see him Trend troponin Hyponatremia 123 in ER Continue NS Check this evening with second troponin Flu A Weakness Start Xofluza PT/OT DVT ppx: SCDs Diagnosis/Problems Diagnosis/Problems (1) Influenza A Status: Acute (2) Hyponatremia (3) NSTEMI (non-ST elevated myocardial infarction) (4) HTN (hypertension) (5) HLD (hyperlipidemia) (6) Poor appetite Status: Acute ALY URBANO MD Jan 15, 2022 15:59
[2022-01-15] MEDS ORDERED: RT-ALBUTEROL/IPRATROPIUM 3 ML (DUONEB) VIAL INH PRN (16:00)
[2022-01-15] MEDS ORDERED: CLOPIDOGREL 75 MG (PLAVIX) TABLET PO NR (16:00)
[2022-01-15 16:03] VITALS: BP 151/101
[2022-01-15] MEDS ORDERED: FLU QUAD HIGH DOSE 240 MCG/0.7 ML 2022-23 (FLUZONE) IM ONE (16:15)
[2022-01-15] MEDS: NS IV 1000 ML 1,000 ML IV SCH ×2 (17:17→20:36)
--- NOTE | 2022-01-15 17:51 | Consultation-Cardiology ---
HPI-Cardiology Cardiology Consultation: Date of Consultation 01/15/22 Time Seen by a Provider: 17:30 Date of Admission Attending Physician Junior Richardson MD Admitting Physician Admitting Physician: Carlotta Urbano MD Attending Physician: Carlotta Urbano MD Consulting Physician RUBEN BARRAGAN MD, MA, FACP, FACC, [facility] [place], CCDS Physician requesting consult: Dr Urbano HPI: Chief Complaint: Reason for Card consult: Elevated troponin Mr. Jones is a 81 yr old male admitted to [facility] from the ED with increasing weakness, poor appetite, hyponatremia, Influenza A (+) and positive troponin. He states he had COVID at the end of October and has had some persistent malaise along with poor appetite since then. He reports several weeks ago he developed localized, left sided chest pressure. He states he saw Dr. Glass (primary certified professional midwife) and had a stress test approx 5 weeks ago which was abnormal per his report. He reports he was to have a cardiac cath today, but d/t feeling progressively worse so he was advised to go to the ED. He reports his is currently hospitalized here with Influenza A as well. He reports he had a significant cough for about 2 days. This has improved, but not resolved. He does not report any chest pressure at this time; mostly congestion and wheezing. He denies any n/v/d. He reports bilat LE swelling which also d eveloped several weeks ago and has become increasing worse. He states Dr. Glass gave him a fluid pill to take, but he has not taken it. Review of Systems-Cardiology Review of Systems Constitutional: No chills, No fever; malaise Eyes: No blurred vision, No vision change Ears/Nose/Throat: No epistaxis, No recent hearing loss Respiratory: As described under HPI Cardiovascular: As described under HPI Gastrointestinal: As described under HPI Genitourinary: No dysuria Skin: No rash on exposed areas, No ulcerations on exposed areas Psychiatric/Neurological: No anxiety, No depression, No seizure, No focal weakness, No syncope Hematologic: No bleeding abnormalities FAB-Ryucwv-Jvjwid Hx Patient Social History Have you traveled recently?: No Alcohol Use?: No Pt feels they are or have been: No Immunizations Up To Date Date of Influenza Vaccine: Nov 25, 2015 Past Medical History PMH As described under Assessment. Family Medical History Family Medical History: He denies any family h/o CAD. He reports his sons bot have HTN. Allergies and Home Medications Allergies Coded Allergies: erythromycin base (Verified Allergy, Mild, 06/22/16) Patient Home Medication List Home Medication List Reviewed: Yes Diclofenac Sodium (Diclofenac Sodium) 50 Mg Tablet.dr, 50 MG PO HS, (Reported) Entered as Reported by: ANNA MONTEZ on 06/22/16 1007 Physical Exam-Cardiology Physical Exam Vital Signs/I&O 01/15/22 01/15/22 01/15/22 01/15/22 12:49 12:49 15:15 15:56 Temp 36.9 36.9 Pulse 106 104 106 B/P (MAP) 148/101 (117) 150/112 Pulse Ox 97 97 O2 Delivery Room Air Room Air FiO2 21 01/15/22 01/15/22 16:03 16:21 Temp 36.0 Pulse 92 Resp 17 B/P (MAP) 151/101 (118) Pulse Ox 97 97 O2 Delivery Room Air Room Air Capillary Refill : Constitutional: AAO x 3, well-developed, well-nourished, other (appears fatigued) HEENT: PERRL, hearing is well preserved, oral hygience is good Neck: No carotid bruit; carotid pulses are 2 + bilaterally Respiratory: No accessory muscle use, No respiratory distress; chest expansion is symmetric, chest is bilaterally symmetric, rhonchi (with expiration throughout), other (diminished based bilat) Cardiovascular: regular rate-rhythm; No JVD; tachycardia Gastrointestinal: No tender; soft, round, audible bowel sounds Extremities: other (mod bilat LE swelling) Neurologic/Psychiatric: grossly intact (moves all extremities) Skin: No rash on exposed areas, No ulcerations on exposed areas Data Review Labs Laboratory Tests 01/15/22 13:07: White Blood Count 6.9, Red Blood Count 4.21L, Hemoglobin 13.7, Hematocrit 40, Mean Corpuscular Volume 95, Mean Corpuscular Hemoglobin 33, Mean Corpuscular Hemoglobin Concent 34, Red Cell Distribution Width 13.6, Platelet Count 237, Mean Platelet Volume 9.9, Immature Granulocyte % (Auto) 0, Neutrophils (%) (Auto) 84H, Lymphocytes (%) (Auto) 5L, Monocytes (%) (Auto) 11, Eosinophils (%) (Auto) 0, Basophils (%) (Auto) 0, Neutrophils # (Auto) 5.8, Lymphocytes # (Auto) 0.3L, Monocytes # (Auto) 0.8, Eosinophils # (Auto) 0.0, Basophils # (Auto) 0.0, Immature Granulocyte # (Auto) 0.0, Neutrophils % (Manual) 89, Lymphocytes % (Manual) 5, Monocytes % (Manual) 5, Atypical Lymphocytes 1, Sodium Level 123*L, Potassium Level 4.1, Chloride Level 89L, Carbon Dioxide Level 23, Anion Gap 11, Blood Urea Nitrogen 19H, Creatinine 0.88, Estimat Glomerular Filtration Rate 87, BUN/Creatinine Ratio 22, Glucose Level 116H, Calcium Level 9.2, Corrected Calcium 9.1, Total Bilirubin 1.4H, Aspartate Amino Transf (AST/SGOT) 24, Alanine Aminotransferase (ALT/SGPT) 28, Alkaline Phosphatase 60, Troponin I 0.166H, Total Protein 7.2, Albumin 4.1 01/15/22 16:02: Troponin I 0.175H A/P-Cardiology Assessment/Admission Diagnosis Influenza A (+) Pneumonia - management per medical services NSTEMI vs Type 2 [place] - reports abnormal MPI approx [address] Glass (was scheduled to have a cardiac cath today) Tachycardia Hyponatremia Poor appetite HTN HLD - statin tx COVID (+) in October 2021 Discussion and Recomendations Influenza A with pneumonia - management per medical services NSTEMI vs Type 2 TX - Advise ASA, Plavix, BB - reports abnormal MPI by Dr. Glass for which he was to have a cardiac cath today, but was unable d/t illness Hyponatremia - management per Medical services Echocardiogram Monitor lab Replace electrolytes as indicated Further recs will be based on his hospital course We would like to thank medical services for this consult RUBEN BARRAGAN MD [facility]S Jan 15, 2022 17:51
[2022-01-15 18:52] LABS: POTASSIUM 4.1 MMOL/L (3.6-5.0)
[2022-01-15 18:53] LABS: CALCIUM 8.5 MG/DL (8.5-10.1)
[2022-01-15 18:57] LABS: CREATININE SERUM 0.81 MG/DL (0.60-1.30)
[2022-01-15 19:52] VITALS: BP 134/95
[2022-01-15] MEDS: RT-ALBUTEROL/IPRATROPIUM 3 ML (DUONEB) VIAL INH SCH (22:02)
[2022-01-16] MEDS: NS IV 1000 ML 1,000 ML IV SCH ×2 (00:35→03:52)
[2022-01-16 00:41] VITALS: BP 124/80
[2022-01-16] MEDS: RT-ALBUTEROL/IPRATROPIUM 3 ML (DUONEB) VIAL INH SCH ×4 (02:32→19:13)
[2022-01-16 03:26] VITALS: BP 152/97
[2022-01-16 06:28] LABS: HEMATOCRIT 38 % (40-54); HEMOGLOBIN 12.8 g/dL (13.3-17.7); MEAN CORPUSCULAR HEMOGLOBIN 33 pg (25-34); MEAN CORPUSCULAR HGB CONC 34 g/dL (32-36); MEAN CORPUSCULAR VOLUME 96 fL (80-99); PLATELET COUNT 220 10^3/uL (130-400)
[2022-01-16 06:50] LABS: POTASSIUM 4.1 MMOL/L (3.6-5.0)
[2022-01-16 06:51] LABS: CALCIUM 8.4 MG/DL (8.5-10.1)
[2022-01-16 06:55] LABS: CREATININE SERUM 0.75 MG/DL (0.60-1.30)
[2022-01-16 06:58] LABS: MAGNESIUM 1.9 MG/DL (1.6-2.4)
[2022-01-16 08:49] VITALS: BP 163/100
[2022-01-16] MEDS: CLOPIDOGREL 75 MG (PLAVIX) TABLET PO SCH (08:53)
--- NOTE | 2022-01-16 09:49 | Occupational Therapy Eval ---
OT Evaluation-General/PLF Medical Diagnosis Admission Date Jan 15, 2022 at 15:47 Medical Diagnosis: Influenza A/hyponatremia Onset Date: Mar 15, 2022 Therapy Diagnosis Therapy Diagnosis: reduced adl status, endurance, strength Height/Weight Height (Feet): 5 Height (Inches): 10.00 Weight (Pounds): 227 Weight (Ounces): 0.0 Precautions Precautions/Isolations: Droplet Isolation, Fall Prevention Referral Referral Reason: Evaluation/Treatment Medical History Pertinent Medical History: HTN Current History Pt presented to hospital with c/o weakness and poor oral intake. Found to have Influenza A. Per patient, he lives with his in a single story home. He was indep with adls but reports that "everything" has been getting more difficult. He does not use any AD at baseline. Reviewed History: Yes Social History Home: Single Level Current Living Status: Spouse Entry Into Home: Level Entry ADL-Prior Level of Function SCALE: Activities may be completed with or without assistive devices. 6-Qzahdeehrv-vgxhhzz completes the activity by him/herself with no assistance from a helper. 5-Set-up or Clean-up Assistance-helper sets up or cleans up; patient completes activity. [place]ak assists only prior to or following the activity. 4-Supervision or Touching Assistance-helper provides verbal cues and/or touchin g/steadying and/or contact guard assistance as patient completes activity. Assistance may be provided throughout the activity or intermittently. 3-Partial/Moderate Assistance-helper does LESS THAN HALF the effort. Camak lifts, holds or supports trunk or limbs, but provides less than half the effort. 2-Substantial/Maximal Assistance-helper does MORE THAN HALF the effort. [place] lifts or holds trunk or limbs and provides more than half the effort. 8-Lucmocusj-bsgqct does ALL the effort. Patient does none of the effort to complete the activity. Or, the assistance of 2 or more helpers is required for the patient to complete the activity. If activity was not attempted, code reason: 7-Patient Refused. 9-Not Applicable-not attempted and the patient did not perform the activity before the current illness, exacerbation or injury. 10-Not Attempted due to Environmental Limitations-(lack of equipment, weather restraints, etc.). 88-Not Attempted due to Medical Conditions or Safety Concerns. Self Care: Independent Functional Cognition: Independent DME/Equipment: Bath Chair, Shower Drive Self: Yes OT Current Status Subjective Pt wheezing throughout treatment, reports standing helps him breath/feel better. Appearance Pt left sitting EOB at OT departure, all needs within reach. Mental Status/Objective Patient Orientation: Person, Place, Situation Attachments: IV, Oxygen (2.5 L) Current Glasses/Contacts: Yes Hearing Aids: No Dentures/Partials: No Hand Dominance: Right Upper Extremity ROM WFL Upper Extremity Strength 3+/5 grossly ADL-Treatment On/Off Footwear (QC): 3 Toileting Hygiene (QC): 4 (per nursing report) Supine>sit with Min a to elevate torso completely. Good sitting balance at edge. Pt able to reach feet to initiate donning bilateral shoes but demonstrates increased effort, wheezing, and SOB. Minimal assist to slide heel into shoe. At this time, pt likely would require some assistance with donning socks secondary to poor pulmonary function. He stood multiple times with SBA, no unsteadiness observed. He ambulated within room with SBA and use of walker. Assist and cues for management of IV pole and oxygen tubing. Pt reports that standing improves breathing and wheezing. With prolonged standing, he does appear to have slight improvement in breathing. Pt requests to remain upright until Echo procedure. Education OT Patient Education: Correct positioning, Energy conservation, Modified ADL techniques, Progress toward Goal/Update tx plan, Purpose of tx/functional activi ties, Reviewed precautions, Rehab process, Safety issues Teaching Recipient: Patient Teaching Methods: Demonstration, Discussion Response to Teaching: Verbalize Understanding, Return Demonstration, Reinforcement Needed OT Vibratory Pile Driver Goals [facility] Goals Time Frame: Jan 30, 2022 Eating (QC): 6 Oral Hygiene (QC): 6 Toileting Hygiene (QC): 6 Shower/Bathe Self (QC): 4 Upper Body Dressing (QC): 5 Lower Body Dressing (QC): 4 On/Off Footwear (QC): 5 Additional Goals: 1-Demonstrate ADL Tasks, 2-Verbalize Understanding, 3- ImproveStrength/Lidya 1=Demonstrate adherence to instructed precautions during ADL tasks. 2=Patient will verbalize/demonstrate understanding of assistive devices/modifications for ADL. 3=Patient will improve strength/tolerance for activity to enable patient to perform ADL's. OT Education/Plan Problem List/Assessment Assessment: Decreased Activ Tolerance, Decreased UE Strength, Impaired I ADL's, Impaired Self-Care Skills Discharge Recommendations Plan/Recommendations: Continue POC Treatment Plan/Plan of Care Treatment,Training & Education: Yes Patient would benefit from OT for education, treatment and training to promote independence in ADL's, mobility, safety and/or upper extremity function for ADL's. Plan of Care: ADL Retraining, Functional Mobility, UE Funct Exercise/Act Treatment Duration: Jan 30, 2022 Frequency: 3 times per week (3-5x/week ) Estimated Hrs Per Day: .25 hour per day Agreement: Yes Rehab Potential: Fair Time Start Time: 08:58 Stop Time: 09:14 DATE: Jan 16, 2022 Total Time Billed (hr/min): 16 Billed Treatment Time 1 visit Callie Patel OT Jan 16, 2022 09:49
--- NOTE | 2022-01-16 10:20 | Physical Therapy Evaluation ---
PT Evaluation-General Medical Diagnosis Admission Date Jan 15, 2022 at 15:47 Medical Diagnosis: Influenza A/hyponatremia Onset Date: Mar 15, 2022 Therapy Diagnosis Therapy Diagnosis: generalized weakness/debility Height/Weight Height (Feet): 5 Height (Inches): 10.00 Weight (Pounds): 227 Weight (Ounces): 0.0 Precautions Precautions/Isolations: Droplet Isolation, Fall Prevention Referral Physician: Sundeep Reason for Referral: Evaluation/Treatment Medical History Pertinent Medical History: Arthritis, HTN Additional Medical History Covid Current History ER secondary to weakness, cough and dehydration Reviewed History: Yes Social History Home: Single Level Current Living Status: Spouse Entry Into Home: Level Entry Prior Prior Level of Function SCALE: Activities may be completed with or without assistive devices. 7-Youpjgpmge-yacgkcf completes the activity by him/herself with no assistance from a helper. 5-Set-up or Clean-up Assistance-helper sets up or cleans up; patient completes activity. [place] assists only prior to or following the activity. 4-Supervision or Touching Assistance-helper provides verbal cues and/or touching/steadying and/or contact guard assistance as patient completes activity. Assistance may be provided throughout the activity or intermittently. 3-Partial/Moderate Assistance-helper does LESS THAN HALF the effort. [place] lifts, holds or supports trunk or limbs, but provides less than half the effort. 2-Substantial/Maximal Assistance-helper does MORE THAN HALF the effort. [place] lifts or holds trunk or limbs and provides more than half the effort. 5-Zwlzjynzr-yzcqex does ALL the effort. Patient does none of the effort to complete the activity. Or, the assistance of 2 or more helpers is required for the patient to complete the activity. If activity was not attempted, code reason: 7-Patient Refused. 9-Not Applicable-not attempted and the patient did not perform the activity before the current illness, exacerbation or injury. 10-Not Attempted due to Environmental Limitations-(lack of equipment, weather restraints, etc.). 88-Not Attempted due to Medical Conditions or Safety Concerns. Bed Mobility: 6 Transfers (B,C,W/C): 6 Gait: 6 Stairs: 6 Indoor Mobility (Ambulation): Independent Stairs: Independent Prior Devices Use: None PT Evaluation-Current Subjective Patient agrees to PT. Objective Patient Orientation: Normal For Age Attachments: Oxygen, IV ROM/Strength ROM Lower Extremities bilateral LE WFL Strength Lower Extremities 4-/5 grossly bilateral LE all planes Integumentary/Posture Bowel Incontinence: No Bladder Incontinence: No Posture WFL Neuromuscular (Tone, Coordination, Reflexes) grossly intact Sensory Vision: Wears Glasses Hearing: Functional Hand Dominance: Right Transfers Sit to Lying (QC): 6 Lying to Sitting/Side of Bed(Q: 6 Sit to Stand (QC): 4 Gait Mode of Locomotion: Walk Anticipated Mode of Locomotion: Walk Walk 10 feet (QC): 4 Distance: 25' Gait Assistive Device: FWW Comments/Gait Description functional gait sequence (increase SOA with minimal activity) Balance Sitting Static: Normal Sitting Dynamic: Normal Standing Static: Fair Standing Dynamic: Fair Assessment/Needs 81 y.o. male, will benefit from skilled PT to address functional strength and mo bility to improve current LOF. Patient presents increase SOA at rest and with minimal activity with O2 in place. Rehab Potential: Guarded PT User Experience Designer Goals User Experience Designer Goals PT Longterm Goals Time Frame: Jan 24, 2022 Roll Left & Right (QC): 6 Sit to Lying (QC): 6 Lying-Sitting on Side/Bed(QC): 6 Sit to Stand (QC): 6 Chair/Tcc-el-Wdnsn Xfer(QC): 6 Toilet Transfer (QC): 6 Walk 10 feet (QC): 6 Walk 50ft with 2 Turns (QC): 6 Walk 150 ft (QC): 6 PT Plan Problem List Problem List: Activity Tolerance, Functional Strength, Balance, Gait, Transfer Treatment/Plan Treatment Plan: Continue Plan of Care Treatment Plan: Bed Mobility, Education, Functional Activity Lidya, Functional Strength, Gait, Safety, Therapeutic Exercise, Transfers Treatment Duration: Jan 24, 2022 Frequency: 6 times per week Estimated Hrs Per Day: .25 hour per day Patient and/or Family Agrees t: Yes Discharge Recommendations Therapy Discharge Recommendati: Home & Family Time Time In: 906 Time Out: 917 DATE: Jan 16, 2022 Total Billed Treatment Time: 11 Total Billed Treatment 1 visit EVMod 11 min MARGOT KELLEY PT Jan 16, 2022 10:20
[2022-01-16] MEDS ORDERED: KCL 10 MEQ TAB (MICRO K) PO ONE (10:45)
[2022-01-16] MEDS ORDERED: EMPAGLIFLOZIN 10 MG TABLET (JARDIANCE) PO ONE (10:45)
[2022-01-16] MEDS ORDERED: SPIRONOLACTONE 25 MG (ALDACTONE) TAB PO ONE (10:45)
[2022-01-16] MEDS ORDERED: SACUBITRIL/VALSARTAN 24/26 MG (ENTRESTO) TABLET PO ONE (10:45)
[2022-01-16] MEDS ORDERED: FUROSEMIDE 40 MG/4 ML INJ (LASIX) IVP ONE (10:45)
--- NOTE | 2022-01-16 11:45 | Progress Note - Cardiology ---
Cardiology SOAP Progress Note Subjective: Sitting up in recliner at the bedside d/t orthopnea No c/o CP C/O increased LE swelling Objective: I&O/Vital Signs 01/18/22 01/19/22 01/19/22 01/19/22 23:50 01:00 03:43 07:24 Temp 36.8 36.4 Pulse 87 81 77 Resp 16 16 B/P (MAP) 112/74 (87) 108/65 (79) Pulse Ox 95 97 98 O2 Delivery Room Air Room Air Room Air O2 Flow Rate 0.00 01/19/22 01/19/22 07:52 08:00 Temp 36.8 Pulse 89 86 Resp 16 B/P (MAP) 114/77 (89) Pulse Ox 95 O2 Delivery Room Air 01/19/22 00:00 Intake Total 1330 ml Output Total 900 ml Balance 430 ml Weight (Pounds): 227 Weight (Ounces): 0.0 Weight (Calculated Kilograms): 102.579306 Constitutional: AAO x 3, well-developed, well-nourished, other (appears fatigued) Respiratory: No accessory muscle use, No respiratory distress; chest expansion is symmetric, chest is bilaterally symmetric, rhonchi (with expiration throughout), other (diminished based bilat) Cardiovascular: regular rate-rhythm; No JVD; tachycardia Gastrointestional: No tender; soft, round, audible bowel sounds Extremities: other (mod bilat LE swelling) Neurologic/Psychiatric: grossly intact (moves all extremities) Skin: No rash on exposed areas, No ulcerations on exposed areas Results/Procedures: Labs Laboratory Tests 01/19/22 05:49: White Blood Count 7.9, Red Blood Count 3.95L, Hemoglobin 12.8L, Hematocrit 37L, Mean Corpuscular Volume 94, Mean Corpuscular Hemoglobin 32, Mean Corpuscular Hemoglobin Concent 35, Red Cell Distribution Width 13.7, Platelet Count 238, Mean Platelet Volume 9.7, Sodium Level 129L, Potassium Level 3.7, Chloride Level 96L, Carbon Dioxide Level 24, Anion Gap 9, Blood Urea Nitrogen 19H, Creatinine 0.82, Estimat Glomerular Filtration Rate 89, BUN/Creatinine Ratio 23, Glucose Level 115H, Calcium Level 8.4L A/P: Assessment: Acute systolic CHF - Echocardigogram of 01-16-22 is not a technically good study d/t large pleural effusion; LVEF is estimated to be approx 25% Large pleural effusion seen on echocardiogram of 01-16-22 Influenza A (+) Pneumonia - management per medical services NSTEMI vs Type 2 ME - reports abnormal MPI approx [address] Glass (was scheduled to have a cardiac cath today) Tachycardia Hyponatremia Poor appetite HTN HLD - statin tx COVID (+) in October 2021 Plan: Influenza A with pneumonia - management per medical services Cardiomyopathy seen on echocardiogram of 01-16-22 Acute systolic CHF - treat with Coreg, Entresto, diuretics, Aldactone, Jardiance Large pleural effusion see on on echo - CXR ordered - surgical consult for consideration of thoracentesis Hyponatremia - likely dilutional d/t decompensated CHF - D/C IVF and start diuretics Suspected CAD d/t reported abnormal MPI by Dr. Glass - continue Plavix and ASA - troponin has remained flat - likely Type 2 ME This has all be discussed with Dr. Urbano via telephone today I have discussed the above findings and tx plan with patient and son MAMADOU MONTERROSO Jan 16, 2022 11:45
[2022-01-16 12:00] VITALS: BP 125/80
[2022-01-16] MEDS ORDERED: FUROSEMIDE 40 MG/4 ML INJ (LASIX) IVP NR (12:00)
[2022-01-16] MEDS ORDERED: ASPI-1238 PO (15:49)
[2022-01-16] MEDS ORDERED: DOCU-26 PO (15:49)
[2022-01-16] MEDS ORDERED: CHOL10007 PO (15:49)
[2022-01-16] MEDS ORDERED: FLUT16SP22 NSEACH (15:49)
[2022-01-16] MEDS ORDERED: BENZ-36 PO (15:49)
[2022-01-16] MEDS ORDERED: LISI20TA26 PO (15:49)
[2022-01-16] MEDS ORDERED: ATOR40TA70 PO (15:49)
[2022-01-16 15:55] VITALS: BP 116/78
--- NOTE | 2022-01-16 16:11 | Progress Note - Hospitalist ---
Subjective HPI/CC On Admission Date Seen by Provider: Jan 16, 2022 Patient is a 81-year-old male with past medical history of hypertension, hyperlipidemia and recent failed stress test who presented to the emergency department due to generalized weakness and poor oral intake. He recently had COVID at the end of October and since that time has had no taste. He then was diagnosed with flu A this week and has continued to have poor oral intake and has been very weak. He did have a cough for few days but feels that this is improving now. He was seen by his primary care PA today and referred to the emergency department due to his weakness. He was found to be quite hyponatremic with a sodium of 123 also had an elevated troponin. He was actually scheduled to have a cardiac cath today but that was canceled due to his current illness. He was admitted to the floor for further management. Subjective/Events-last exam Pt reports not doing well. More short of breath today. Can't lay down. Discussed echo results with patient. Objective Exam Vital Signs Vital Signs Date Time Temp Pulse Resp B/P (MAP) Pulse Ox O2 Delivery O2 Flow Rate FiO2 01/16/22 15:55 37.0 88 20 116/78 (91) 100 Nasal Cannula 3.00 01/15/22 15:56 21 Capillary Refill : General Appearance: No Apparent Distress, Mild Distress (SOB) Respiratory: No Accessory Muscle Use, Crackles Cardiovascular: Regular Rate, Rhythm, No Murmur Gastrointestinal: Normal Bowel Sounds, Non Tender, Soft Extremity: No Calf Tenderness, Pedal Edema, Swelling Neurologic/Psychiatric: Alert, Oriented x3, Normal Mood/Affect Results/Procedures Lab Laboratory Tests 01/15/22 18:34 01/16/22 06:08 Patient resulted labs reviewed. Assessment/Plan Assessment and Plan Assess & Plan/Chief Complaint NSTEMI HTN HLD Recently failed stress test with Dr Glass Cardiology consulted, appreciate recs ASA and Toprol XL given in ER Nathalia, PAPER TUBE GRADER at bedside to see him Trend troponin Echo shows EF of 25% DC fluids and start lasix Hyponatremia Sodium up to 125 this AM recheck Flu A Weakness Continue Xofluza from home PT/OT DVT ppx: SCDs Diagnosis/Problems Diagnosis/Problems (1) Influenza A Status: Acute (2) Hyponatremia (3) NSTEMI (non-ST elevated myocardial infarction) (4) HTN (hypertension) (5) HLD (hyperlipidemia) (6) Poor appetite Status: Acute ALY GARCIA MD Jan 16, 2022 16:10
--- NOTE | 2022-01-16 16:40 | Diagnostic Imaging Report ---
INDICATION: Pleural effusion. PA and lateral chest obtained at 12:52 p.m. and compared with 01/15/2022. FINDINGS: Heart is borderline in size. Diffuse interstitial infiltrates are again noted. There is no pneumothorax. There is a small amount of pleural fluid on both sides, which is stable compared to the prior study. IMPRESSION: Unchanged diffuse interstitial infiltrates with minimal bilateral pleural effusions. Dictated by: Dictated on workstation # [id number]
[2022-01-16] MEDS ORDERED: FUROSEMIDE 40 MG/4 ML INJ (LASIX) IVP SCH (17:00)
[2022-01-16] MEDS: KCL 10 MEQ TAB (MICRO K) PO SCH (17:26)
[2022-01-16] MEDS: FUROSEMIDE 40 MG/4 ML INJ (LASIX) IVP SCH (17:26)
--- NOTE | 2022-01-16 17:50 | Progress Note - Cardiology ---
Cardiology SOAP Progress Note Subjective: Gen weakness Shortness of breath worsening this am No focal weakness No n/v/d No cp or palp or syncope Objective: I&O/Vital Signs 01/16/22 01/16/22 01/16/22 01/16/22 07:33 08:45 08:49 12:00 Temp 36.4 36.3 Pulse 103 90 Resp 19 19 B/P (MAP) 163/100 (121) 125/80 (95) Pulse Ox 95 99 O2 Delivery Room Air Room Air Nasal Cannula O2 Flow Rate 2.50 2.50 01/16/22 01/16/22 15:55 16:32 Temp 37.0 Pulse 88 Resp 20 B/P (MAP) 116/78 (91) Pulse Ox 100 96 O2 Delivery Nasal Cannula Room Air O2 Flow Rate 3.00 01/16/22 00:00 Intake Total 1686 ml Balance 1686 ml Weight (Pounds): 227 Weight (Ounces): 0.0 Weight (Calculated Kilograms): 102.148218 Constitutional: AAO x 3, well-developed, well-nourished, other (appears fatigued) Respiratory: No accessory muscle use, No respiratory distress; chest expansion is symmetric, chest is bilaterally symmetric, rhonchi (with expiration throughout), other (diminished based bilat) Cardiovascular: regular rate-rhythm; No JVD; tachycardia Gastrointestional: No tender; soft, round, audible bowel sounds Extremities: other (mod bilat LE swelling) Neurologic/Psychiatric: other (moves all extremities) Skin: No rash on exposed areas, No ulcerations on exposed areas Results/Procedures: Labs Laboratory Tests 01/15/22 18:34: Sodium Level 122*L, Potassium Level 4.1, Chloride Level 90L, Carbon Dioxide Level 20L, Anion Gap 12, Blood Urea Nitrogen 18, Creatinine 0.81, Estimat Glomerular Filtration Rate 90, BUN/Creatinine Ratio 22, Glucose Level 149H, Calcium Level 8.5, Troponin I 0.177H 01/16/22 06:08: Sodium Level 125*L, Potassium Level 4.1, Chloride Level 95L, Carbon Dioxide Level 18L, Anion Gap 12, Blood Urea Nitrogen 18, Creatinine 0.75, Estimat Glomerular Filtration Rate 92, BUN/Creatinine Ratio 24, Glucose Level 103, Calcium Level 8.4L, White Blood Count 7.0, Red Blood Count 3.92L, Hemoglobin 12.8L, Hematocrit 38L, Mean Corpuscular Volume 96, Mean Corpuscular Hemoglobin 33, Mean Corpuscular Hemoglobin Concent 34, Red Cell Distribution Width 13.7, Platelet Count 220, Mean Platelet Volume 10.0, Magnesium Level 1.9 Laboratory Tests 01/15/22 13:07 01/15/22 18:34 01/16/22 06:08 A/P: Assessment: Acute systolic CHF - Echocardigogram of 01-16-22 is not a technically good study d/t large pleural effusion; LVEF is estimated to be approx 25% Large pleural effusion seen on echocardiogram of 01-16-22 Influenza A (+) Pneumonia - management per medical services Mildly elevated troponin likely due to CHF (Type 2 [place]) - reports abnormal MPI approx [address] Glass (was scheduled to have a cardiac cath today) Tachycardia Hyponatremia - likely dilutional due to decomp CHF Poor appetite HTN HLD - statin tx COVID (+) in October 2021 Plan: * d/c ivf * diuretics as needed and as tolerated * heart failure meds: Coreg, Entresto, Aldactone, Jardiance * consider thoracentesis for large pleural eff * monitor labs closely * DAPT because of suspected CAD (reported to have an abn stress test lately) * discussed his CV issues in detail with him and his family RUBEN BARRAGAN MD FACP FAC CCDS Jan 16, 2022 17:50
[2022-01-16 18:12] LABS: POTASSIUM 3.9 MMOL/L (3.6-5.0)
[2022-01-16 18:17] LABS: CREATININE SERUM 0.9 MG/DL (0.60-1.30)
[2022-01-16 19:59] VITALS: BP 93/62
[2022-01-16] MEDS: SACUBITRIL/VALSARTAN 24/26 MG (ENTRESTO) TABLET PO SCH (20:15)
[2022-01-17] VITALS (10 sets, daily range): BP systolic 85–130; BP diastolic 58–83
[2022-01-17] MEDS: FUROSEMIDE 40 MG/4 ML INJ (LASIX) IVP SCH ×2 (06:06→17:48)
[2022-01-17 06:29] LABS: HEMATOCRIT 38 % (40-54); HEMOGLOBIN 13.2 g/dL (13.3-17.7); MEAN CORPUSCULAR HEMOGLOBIN 32 pg (25-34); MEAN CORPUSCULAR HGB CONC 35 g/dL (32-36); MEAN CORPUSCULAR VOLUME 93 fL (80-99); MEAN PLATELET VOLUME 9.8 fL (9.0-12.2); PLATELET COUNT 258 10^3/uL (130-400); WHITE BLOOD COUNT 9.9 10^3/uL (4.3-11.0)
[2022-01-17 06:48] LABS: CALCIUM 8.8 MG/DL (8.5-10.1); CREATININE SERUM 0.91 MG/DL (0.60-1.30); MAGNESIUM 3.4 MG/DL (1.6-2.4); POTASSIUM 3.5 MMOL/L (3.6-5.0)
[2022-01-17] MEDS: SACUBITRIL/VALSARTAN 24/26 MG (ENTRESTO) TABLET PO SCH ×2 (09:43→20:57)
[2022-01-17] MEDS: SPIRONOLACTONE 25 MG (ALDACTONE) TAB PO SCH (09:43)
[2022-01-17] MEDS: CLOPIDOGREL 75 MG (PLAVIX) TABLET PO SCH (09:43)
[2022-01-17] MEDS: KCL 10 MEQ TAB (MICRO K) PO SCH ×2 (09:43→18:48)
[2022-01-17] MEDS: EMPAGLIFLOZIN 10 MG TABLET (JARDIANCE) PO SCH (09:44)
--- NOTE | 2022-01-17 10:26 | Progress Note - Hospitalist ---
Subjective HPI/CC On Admission Date Seen by Provider: Jan 17, 2022 Patient is a 81-year-old male with past medical history of hypertension, hyperlipidemia and recent failed stress test who presented to the emergency department due to generalized weakness and poor oral intake. He recently had COVID at the end of October and since that time has had no taste. He then was diagnosed with flu A this week and has continued to have poor oral intake and has been very weak. He did have a cough for few days but feels that this is improving now. He was seen by his primary care PA today and referred to the emergency department due to his weakness. He was found to be quite hyponatremic with a sodium of 123 also had an elevated troponin. He was actually scheduled to have a cardiac cath today but that was canceled due to his current illness. He was admitted to the floor for further management. Subjective/Events-last exam Pt reports doing much better today. Breathing well. No new complaints. lower extremity edema improved. Objective Exam Vital Signs Vital Signs Date Time Temp Pulse Resp B/P (MAP) Pulse Ox O2 Delivery O2 Flow Rate FiO2 01/17/22 10:00 99 Nasal Cannula 2.00 01/17/22 07:58 36.6 87 20 113/74 (87) 01/15/22 15:56 21 Capillary Refill : General Appearance: No Apparent Distress, WD/WN Respiratory: Lungs Clear Cardiovascular: Regular Rate, Rhythm, No Murmur Extremity: Pedal Edema, Swelling (1+ ) Neurologic/Psychiatric: Alert, Oriented x3 Results/Procedures Lab Laboratory Tests 01/16/22 17:42 01/17/22 05:34 Patient resulted labs reviewed. Assessment/Plan Assessment and Plan Assess & Plan/Chief Complaint NSTEMI HTN HLD CHF Pleural effusion Recently failed stress test with Dr Glass Cardiology consulted, appreciate recs ASA and Toprol XL Echo shows EF of 25% Continue Lasix Surgery consulted for possible thoracentesis Hyponatremia Sodium up to 129 recheck in AM Flu A Weakness Continue Xofluza from home PT/OT DVT ppx: SCDs Diagnosis/Problems Diagnosis/Problems (1) Influenza A Status: Acute (2) Hyponatremia (3) NSTEMI (non-ST elevated myocardial infarction) (4) HTN (hypertension) (5) HLD (hyperlipidemia) (6) Poor appetite Status: Acute ALY GARCIA MD Jan 17, 2022 10:26 am
[2022-01-17] MEDS: RT-ALBUTEROL/IPRATROPIUM 3 ML (DUONEB) VIAL INH SCH (10:44)
[2022-01-17] MEDS ORDERED: MELATONIN 3 MG TABLET PO PRN (11:15)
--- NOTE | 2022-01-17 12:05 | Physical Therapy Daily Note ---
PT Daily Note-Current Subjective Pt report he is feeling strong today with primary complaint of low back pain. Pt was up walking in room unassisted without device. Pain Section J - Health Conditions 1. Rarely or not at all 2. Occasionally 3. Frequently 4. Almost constantly 8. Unable to answer Pain Effect on Sleep: 4 Pain Interference with Therapy: 4 Pain Interference w/Day-to-Day: 4 Mental Status Patient Orientation: Normal For Age Transfers SCALE: Activities may be completed with or without assistive devices. 4-Ifocrthdtj-lfpuety completes the activity by him/herself with no assistance from a helper. 5-Set-up or Clean-up Assistance-helper sets up or cleans up; patient completes activity. [place] assists only prior to or following the activity. 4-Supervision or Touching Assistance-helper provides verbal cues and/or t ouching/steadying and/or contact guard assistance as patient completes activity. Assistance may be provided throughout the activity or intermittently. 3-Partial/Moderate Assistance-helper does LESS THAN HALF the effort. [place] lifts, holds or supports trunk or limbs, but provides less than half the effort. 2-Substantial/Maximal Assistance-helper does MORE THAN HALF the effort. [place] lifts or holds trunk or limbs and provides more than half the effort. 1-Xzxregvzs-wvdsct does ALL the effort. Patient does none of the effort to complete the activity. Or, the assistance of 2 or more helpers is required for the patient to complete the activity. If activity was not attempted, code reason: 7-Patient Refused. 9-Not Applicable-not attempted and the patient did not perform the activity before the current illness, exacerbation or injury. 10-Not Attempted due to Environmental Limitations-(lack of equipment, weather restraints, etc.). 88-Not Attempted due to Medical Conditions or Safety Concerns. Roll Left & Right (QC): 6 Sit to Stand (QC): 6 Exercises Pt recieved stretching (B) LEs single knee to chest, piriformis, and hamstrings. Prone position of for grade III lumbar and soft tissue mobilization. Assessment Pt reports manual therapy reduced the acuteness of his LBP to 4/10. PT Alf Goals General Farmworker Goals PT General Farmworker Goals Time Frame: Jan 24, 2022 Roll Left & Right (QC): 6 Sit to Lying (QC): 6 Lying-Sitting on Side/Bed(QC): 6 Sit to Stand (QC): 6 Chair/Yau-bv-Zdrrb Xfer(QC): 6 Toilet Transfer (QC): 6 Walk 10 feet (QC): 6 Walk 50ft with 2 Turns (QC): 6 Walk 150 ft (QC): 6 PT Plan Treatment/Plan Treatment Plan: Continue Plan of Care Treatment Plan: Bed Mobility, Education, Functional Activity Lidya, Functional Strength, Gait, Safety, Therapeutic Exercise, Transfers Treatment Duration: Jan 24, 2022 Frequency: 6 times per week Estimated Hrs Per Day: .25 hour per day Patient and/or Family Agrees t: Yes Time Time In: 829 Time Out: 849 DATE: Jan 17, 2022 Total Billed Treatment Time: 20 Total Billed Treatment visit, Manual therapy 20 min BONNIE PUENTES PT Jan 17, 2022 12:05
--- NOTE | 2022-01-17 13:06 | Progress Note - Cardiology ---
Cardiology SOAP Progress Note Subjective: Shortness of breath is improving Notes gen malaise No focal weakness No cp or palp or syncope Leg swelling still present No n/v/d Objective: I&O/Vital Signs 01/17/22 01/17/22 01/17/22 01/17/22 01:00 03:11 07:00 07:58 Temp 36.1 36.6 Pulse 96 87 89 87 Resp 20 20 B/P (MAP) 113/76 (88) 113/74 (87) Pulse Ox 96 96 O2 Delivery Room Air Room Air 01/17/22 01/17/22 01/17/22 01/17/22 10:00 11:18 11:37 12:35 Temp 36.4 Pulse 91 80 Resp 18 18 B/P (MAP) 85/58 (67) 86/60 (69) 110/68 (82) Pulse Ox 99 98 99 O2 Delivery Nasal Cannula Nasal Cannula Nasal Cannula O2 Flow Rate 2.00 2.00 2.00 01/17/22 12:45 Pulse 84 01/17/22 00:00 Intake Total 2310 ml Output Total 4000 ml Balance -1690 ml Weight (Pounds): 227 Weight (Ounces): 0.0 Weight (Calculated Kilograms): 102.356243 Constitutional: AAO x 3, well-developed, well-nourished, other (appears fatigued) Respiratory: No accessory muscle use, No respiratory distress; chest expansion is symmetric, chest is bilaterally symmetric, rhonchi (with expiration throughout), other (diminished based bilat) Cardiovascular: regular rate-rhythm; No JVD; tachycardia Gastrointestional: No tender; soft, round, audible bowel sounds Extremities: other (mod bilat LE swelling) Neurologic/Psychiatric: other (moves all extremities) Skin: No rash on exposed areas, No ulcerations on exposed areas Results/Procedures: Labs Laboratory Tests 01/16/22 17:42: Sodium Level 127L, Potassium Level 3.9, Chloride Level 87L, Carbon Dioxide Level 21, Anion Gap 19H, Blood Urea Nitrogen 19H, Creatinine 0.90, Estimat Glomerular Filtration Rate 87, BUN/Creatinine Ratio 21, Glucose Level 93, Calcium Level 9.0 01/17/22 05:34: Sodium Level 129L, Potassium Level 3.5L, Chloride Level 92L, Carbon Dioxide Level 22, Anion Gap 15H, Blood Urea Nitrogen 20H, Creatinine 0.91, Estimat Glomerular Filtration Rate 86, BUN/Creatinine Ratio 22, Glucose Level 88, Calcium Level 8.8, White Blood Count 9.9, Red Blood Count 4.11L, Hemoglobin 13.2L, Hematocrit 38L, Mean Corpuscular Volume 93, Mean Corpuscular Hemoglobin 32, Mean Corpuscular Hemoglobin Concent 35, Red Cell Distribution Width 13.3, Platelet Count 258, Mean Platelet Volume 9.8, Magnesium Level 3.4H Laboratory Tests 01/15/22 13:07 01/15/22 18:34 01/16/22 06:08 01/16/22 17:42 01/17/22 05:34 A/P: Assessment: Acute systolic CHF due to dilated cardiomyopathy - Echocardigogram of 01-16-22 is not a technically good study d/t large pleural effusion; LVEF is estimated to be approx 25% Large pleural effusion seen on echocardiogram of 01-16-22 Influenza A (+) Pneumonia - management per medical services Mildly elevated troponin likely due to CHF (Type 2 [place]) - reports abnormal MPI approx [address] Glass (was scheduled to have a cardiac cath today) Tachycardia Hyponatremia - likely dilutional due to decomp CHF, improving with diuretics Poor appetite HTN HLD - statin tx COVID (+) in October 2021 Plan: * reduce furosemide and carvedilol due to low bp * replenish K * monitor labs * consider thoracentesis for large pleural eff * add ASA to Plavix because of suspected CAD (reported to have an abn stress test lately) * discussed his CV issues in detail with him and his family RUBEN BARRAGAN MD FACP FAC CCDS Jan 17, 2022 13:06
[2022-01-17] MEDS ORDERED: KCL 20 MEQ TAB (K-DUR) PO NR (13:15)
[2022-01-17] MEDS: ACETAMINOPHEN 325 MG TABLET PO PRN ×2 (17:02→20:58)
[2022-01-17] MEDS: RT-ALBUTEROL/IPRATROPIUM 3 ML (DUONEB) VIAL INH PRN (22:10)
[2022-01-17] MEDS: MELATONIN 3 MG TABLET PO PRN (22:44)
[2022-01-18] VITALS (7 sets, daily range): BP systolic 97–130; BP diastolic 62–83
[2022-01-18] MEDS: RT-ALBUTEROL/IPRATROPIUM 3 ML (DUONEB) VIAL INH PRN (06:21)
[2022-01-18 06:58] LABS: HEMATOCRIT 44 % (40-54); MEAN CORPUSCULAR HEMOGLOBIN 32 pg (25-34); MEAN CORPUSCULAR HGB CONC 34 g/dL (32-36); MEAN CORPUSCULAR VOLUME 94 fL (80-99); MEAN PLATELET VOLUME 10.1 fL (9.0-12.2); PLATELET COUNT 266 10^3/uL (130-400); WHITE BLOOD COUNT 11.1 10^3/uL (4.3-11.0)
[2022-01-18] MEDS: FUROSEMIDE 40 MG/4 ML INJ (LASIX) IVP SCH ×2 (06:59→17:07)
[2022-01-18 07:05] LABS: POTASSIUM 3.6 MMOL/L (3.6-5.0)
[2022-01-18 07:06] LABS: CALCIUM 9.1 MG/DL (8.5-10.1)
[2022-01-18 07:11] LABS: CREATININE SERUM 0.96 MG/DL (0.60-1.30)
[2022-01-18] MEDS: KCL 10 MEQ TAB (MICRO K) PO SCH ×2 (08:10→17:12)
[2022-01-18] MEDS: CLOPIDOGREL 75 MG (PLAVIX) TABLET PO SCH (08:10)
[2022-01-18] MEDS: ASPIRIN 81 MG CHEW (CHILDREN'S ASA) PO SCH (08:10)
[2022-01-18] MEDS: EMPAGLIFLOZIN 10 MG TABLET (JARDIANCE) PO SCH (08:10)
[2022-01-18] MEDS: SACUBITRIL/VALSARTAN 24/26 MG (ENTRESTO) TABLET PO SCH ×2 (08:10→20:23)
[2022-01-18] MEDS: SPIRONOLACTONE 25 MG (ALDACTONE) TAB PO SCH (08:10)
[2022-01-18] MEDS ORDERED: RT-ALBUTEROL/IPRATROPIUM 3 ML (DUONEB) VIAL INH SCH (11:00)
--- NOTE | 2022-01-18 12:06 | Progress Note - Hospitalist ---
Subjective HPI/CC On Admission Date Seen by Provider: Jan 18, 2022 Patient is a 81-year-old male with past medical history of hypertension, hyperlipidemia and recent failed stress test who presented to the emergency department due to generalized weakness and poor oral intake. He recently had COVID at the end of October and since that time has had no taste. He then was diagnosed with flu A this week and has continued to have poor oral intake and has been very weak. He did have a cough for few days but feels that this is improving now. He was seen by his primary care PA today and referred to the emergency department due to his weakness. He was found to be quite hyponatremic with a sodium of 123 also had an elevated troponin. He was actually scheduled to have a cardiac cath today but that was canceled due to his current illness. He was admitted to the floor for further management. Subjective/Events-last exam Pt reports feeling better today but worried he is getting dehydrated so refused his Lasix. Informed him that he is not getting dehydrated per his labs. He is uncertain if he wants to proceed with the cath despite his primary cardiology and Dr Rudd recommending it. Encouraged him to consider this. States his if not doing well. Objective Exam Vital Signs Vital Signs Date Time Temp Pulse Resp B/P (MAP) Pulse Ox O2 Delivery O2 Flow Rate FiO2 01/18/22 11:18 36.4 92 20 97/62 (74) 97 Room Air 01/18/22 06:24 21 01/18/22 06:21 0.00 Capillary Refill : General Appearance: No Apparent Distress, WD/WN Respiratory: Lungs Clear, No Respiratory Distress Cardiovascular: Regular Rate, Rhythm, No Murmur Gastrointestinal: Normal Bowel Sounds, Non Tender, Soft Neurologic/Psychiatric: Alert, Oriented x3 Results/Procedures Lab Laboratory Tests 01/18/22 05:20 Patient resulted labs reviewed. Assessment/Plan Assessment and Plan Assess & Plan/Chief Complaint NSTEMI HTN HLD CHF- decompensated Pleural effusion Recently failed stress test with Dr Glass Cardiology consulted, appreciate recs ASA and Toprol XL Echo shows EF of 25% Continue Lasix as he is willing to take it Surgery consulted for possible thoracentesis Hyponatremia Sodium up to 131 trend Flu A Weakness Continue Xofluza from home PT/OT DVT ppx: SCDs Diagnosis/Problems Diagnosis/Problems (1) Influenza A Status: Acute (2) Hyponatremia (3) NSTEMI (non-ST elevated myocardial infarction) (4) HTN (hypertension) (5) HLD (hyperlipidemia) (6) Poor appetite Status: Acute ALY GARCIA MD Jan 18, 2022 12:06
[2022-01-18] MEDS: ACETAMINOPHEN 325 MG TABLET PO PRN ×2 (12:10→17:12)
[2022-01-18] MEDS: RT-ALBUTEROL/IPRATROPIUM 3 ML (DUONEB) VIAL INH SCH ×2 (16:30→19:53)
[2022-01-18] MEDS: guaiFENesin/DM (ROBITUSSIN DM) 10 ML UDC PO PRN ×2 (16:37→23:35)
--- NOTE | 2022-01-18 19:13 | Progress Note - Cardiology ---
Cardiology SOAP Progress Note Subjective: Dry cough this am No cp or palp or syncope No shortness of breath at rest Gen weakness improving No n/v/d No focal weakness Objective: I&O/Vital Signs 01/18/22 01/18/22 01/18/22 01/18/22 07:26 08:00 11:18 13:00 Temp 36.4 36.4 Pulse 94 92 73 Resp 20 20 B/P (MAP) 109/73 (85) 97/62 (74) Pulse Ox 96 97 O2 Delivery Room Air Room Air Room Air 01/18/22 15:46 Temp 37.1 Pulse 84 Resp 20 B/P (MAP) 101/69 (80) Pulse Ox 97 O2 Delivery Room Air 01/18/22 00:00 Intake Total 1250 ml Output Total 1760 ml Balance -510 ml Weight (Pounds): 227 Weight (Ounces): 0.0 Weight (Calculated Kilograms): 102.933682 Constitutional: AAO x 3, well-developed, well-nourished, other (appears fatigued) Respiratory: No accessory muscle use, No respiratory distress; chest expansion is symmetric, chest is bilaterally symmetric, rhonchi (with expiration throughout), other (diminished based bilat) Cardiovascular: regular rate-rhythm; No JVD; tachycardia Gastrointestional: No tender; soft, round, audible bowel sounds Extremities: other (mod bilat LE swelling) Neurologic/Psychiatric: other (moves all extremities) Skin: No rash on exposed areas, No ulcerations on exposed areas Results/Procedures: Labs Laboratory Tests 01/18/22 05:20: White Blood Count 11.1H, Red Blood Count 4.66, Hemoglobin 15.0, Hematocrit 44, Mean Corpuscular Volume 94, Mean Corpuscular Hemoglobin 32, Mean Corpuscular Hemoglobin Concent 34, Red Cell Distribution Width 13.6, Platelet Count 266, Mean Platelet Volume 10.1, Sodium Level 131L, Potassium Level 3.6, Chloride Level 92L, Carbon Dioxide Level 22, Anion Gap 17H, Blood Urea Nitrogen 24H, Creatinine 0.96, Estimat Glomerular Filtration Rate 80, BUN/Creatinine Ratio 25, Glucose Level 76, Calcium Level 9.1 Laboratory Tests 01/17/22 05:34 01/18/22 05:20 A/P: Assessment: Acute systolic CHF due to dilated cardiomyopathy - Echocardigogram of 01-16-22 is not a technically good study d/t large pleural effusion; LVEF is estimated to be approx 25% Large pleural effusion seen on echocardiogram of 01-16-22 Influenza A (+) Pneumonia - management per medical services Mildly elevated troponin likely due to CHF (Type 2 [place]) - reports abnormal MPI approx [address] Glass (was scheduled to have a cardiac cath today) Tachycardia Hyponatremia - likely dilutional due to decomp CHF, improving with diuretics Poor appetite HTN HLD - statin tx COVID (+) in October 2021 Plan: * change furosemide to oral and reduce dose * consider d/c AMANDA-inhib if cough does not resolve * monitor labs RUBEN BARRAGAN MD FACP FAC CCDS Jan 18, 2022 19:13
[2022-01-18] MEDS: MELATONIN 3 MG TABLET PO PRN (22:13)
[2022-01-19 03:43] VITALS: BP 108/65
[2022-01-19 06:02] LABS: HEMATOCRIT 37 % (40-54); HEMOGLOBIN 12.8 g/dL (13.3-17.7); MEAN CORPUSCULAR HEMOGLOBIN 32 pg (25-34); MEAN CORPUSCULAR HGB CONC 35 g/dL (32-36); MEAN CORPUSCULAR VOLUME 94 fL (80-99); MEAN PLATELET VOLUME 9.7 fL (9.0-12.2); PLATELET COUNT 238 10^3/uL (130-400); WHITE BLOOD COUNT 7.9 10^3/uL (4.3-11.0)
[2022-01-19 06:16] LABS: POTASSIUM 3.7 MMOL/L (3.6-5.0)
[2022-01-19 06:17] LABS: CALCIUM 8.4 MG/DL (8.5-10.1)
[2022-01-19 06:22] LABS: CREATININE SERUM 0.82 MG/DL (0.60-1.30)
[2022-01-19] MEDS: RT-ALBUTEROL/IPRATROPIUM 3 ML (DUONEB) VIAL INH SCH ×4 (07:24→18:58)
[2022-01-19 08:00] VITALS: BP 114/77
[2022-01-19] MEDS: guaiFENesin/DM (ROBITUSSIN DM) 10 ML UDC PO PRN ×3 (08:21→22:26)
[2022-01-19] MEDS: SPIRONOLACTONE 25 MG (ALDACTONE) TAB PO SCH (08:22)
[2022-01-19] MEDS: ACETAMINOPHEN 325 MG TABLET PO PRN ×2 (08:22→16:13)
[2022-01-19] MEDS: ASPIRIN 81 MG CHEW (CHILDREN'S ASA) PO SCH (08:23)
[2022-01-19] MEDS: CLOPIDOGREL 75 MG (PLAVIX) TABLET PO SCH (08:23)
[2022-01-19] MEDS: SACUBITRIL/VALSARTAN 24/26 MG (ENTRESTO) TABLET PO SCH ×2 (08:23→20:32)
[2022-01-19] MEDS: KCL 10 MEQ TAB (MICRO K) PO SCH ×2 (08:24→17:24)
[2022-01-19] MEDS: FUROSEMIDE 40 MG (LASIX) TAB PO SCH (08:24)
[2022-01-19] MEDS: EMPAGLIFLOZIN 10 MG TABLET (JARDIANCE) PO SCH (08:24)
--- NOTE | 2022-01-19 08:40 | Speech Therapy Progress Note ---
Therapy Progress Note Speech pathology received the consultation for completion of a clinical bedside swallowing evaluation and reviewed the patient's chart. The clinician attempted the evaluation at 0830. At this time, the patient stated, "I just took a bunch of pills, now probably isn't the best time." The patient requested the clinician return at a later time, therefore, the clinician stated she would re-attempt the evaluation around 1100. The patient was agreeable to this time and remained pleasant throughout his interactions with the clinician. ST to re-attempt on this date as able. ANNA BETANCUR Jan 19, 2022 08:40
--- NOTE | 2022-01-19 10:30 | Physical Therapy Daily Note ---
PT Daily Note-Current Subjective Patient up independently in room. Has increase c/o back pain. Pain Numeric Pain Scale: 7 Location: Medial Location Body Site: Back Pain Description: Tightness Section J - Health Conditions 1. Rarely or not at all 2. Occasionally 3. Frequently 4. Almost constantly 8. Unable to answer Pain Effect on Sleep: 4 Pain Interference with Therapy: 4 Pain Interference w/Day-to-Day: 4 Mental Status Patient Orientation: Normal For Age Transfers SCALE: Activities may be completed with or without assistive devices. 4-Cbxpzvfjit-xthyoay completes the activity by him/herself with no assistance from a helper. 5-Set-up or Clean-up Assistance-helper sets up or cleans up; patient completes activity. [place] assists only prior to or following the activity. 4-Supervision or Touching Assistance-helper provides verbal cues and/or touchi ng/steadying and/or contact guard assistance as patient completes activity. Assistance may be provided throughout the activity or intermittently. 3-Partial/Moderate Assistance-helper does LESS THAN HALF the effort. [place] lifts, holds or supports trunk or limbs, but provides less than half the effort. 2-Substantial/Maximal Assistance-helper does MORE THAN HALF the effort. [place] lifts or holds trunk or limbs and provides more than half the effort. 6-Hmwvnxnxf-bkuulm does ALL the effort. Patient does none of the effort to complete the activity. Or, the assistance of 2 or more helpers is required for the patient to complete the activity. If activity was not attempted, code reason: 7-Patient Refused. 9-Not Applicable-not attempted and the patient did not perform the activity before the current illness, exacerbation or injury. 10-Not Attempted due to Environmental Limitations-(lack of equipment, weather restraints, etc.). 88-Not Attempted due to Medical Conditions or Safety Concerns. Roll Left & Right (QC): 6 Exercises Supine Ex: Lower trunk rotation, Knee to chest Supine Reps: 15 Treatments Patient received stretching (B) LEs single knee to chest, piriformis, and hamstrings. Prone position of for grade III lumbar and soft tissue mobilization Assessment Patient had decrease c/o back pain after session (05/25). Per patient, he will have a heart cath tomorrow. 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 PT Skilled Nursing Goals Time Frame: Jan 24, 2022 Roll Left & Right (QC): 6 Sit to Lying (QC): 6 Lying-Sitting on Side/Bed(QC): 6 Sit to Stand (QC): 6 Chair/Wla-lz-Femon Xfer(QC): 6 Toilet Transfer (QC): 6 Walk 10 feet (QC): 6 Walk 50ft with 2 Turns (QC): 6 Walk 150 ft (QC): 6 PT Plan Treatment/Plan Treatment Plan: Continue Plan of Care Treatment Plan: Bed Mobility, Education, Functional Activity Lid[place], Functional Strength, Gait, Safety, Therapeutic Exercise, Transfers Treatment Duration: Jan 24, 2022 Frequency: 6 times per week Estimated Hrs Per Day: .25 hour per day Patient and/or Family Agrees t: Yes Time Time In: 921 Time Out: 935 DATE: Jan 19, 2022 Total Billed Treatment Time: 14 Total Billed Treatment 1 visit MAN 14 min MARGOT KELLEY PT Jan 19, 2022 10:30
--- NOTE | 2022-01-19 11:09 | Speech Therapy Progress Note ---
Therapy Progress Note Speech pathology re-attempted the clinical bedside swallowing evaluation at 1100. At this time, the patient is working with occupational therapy and completing a shower. ST will re-attempt the oropharyngeal swallowing evaluation at a later time, as able. The patient's family member was present who stated, "Since COVID he hasn't had any taste so he hasn't ate anything. You're here because of that." The clinician requested additional information regarding the safety of the patient's oropharyngeal swallow function or concerns the family may have regarding swallowing. The patient's family member denied safety concerns stating, "He says it hurts when he swallows." Speech pathology will return to the patient's room as able to assess the safety of the oropharyngeal swallowing function and provide recommendations within the scope of speech pathology practice. ANNA BETANCUR Jan 19, 2022 11:09
--- NOTE | 2022-01-19 11:18 | Progress Note - Cardiology ---
Cardiology SOAP Progress Note Objective: I&O/Vital Signs 01/20/22 01/20/22 01/20/22 01/20/22 01:00 01:16 04:43 07:06 Temp 36.9 36.7 Pulse 90 85 96 88 Resp 16 18 B/P (MAP) 108/74 (85) 131/83 (99) Pulse Ox 96 96 O2 Delivery Room Air Room Air 01/20/22 01/20/22 01/20/22 01/20/22 07:20 08:00 08:06 10:05 Temp 36.6 36.6 Pulse 90 90 Resp 18 B/P (MAP) 118/80 (93) Pulse Ox 97 97 97 O2 Delivery Room Air Room Air Room Air O2 Flow Rate 0.00 01/20/22 11:03 Temp 36.6 Pulse 85 Resp 18 B/P (MAP) 117/72 (87) Pulse Ox 97 O2 Delivery Room Air 01/20/22 00:00 Intake Total 1350 ml Output Total 400 ml Balance 950 ml Weight (Pounds): 227 Weight (Ounces): 0.0 Weight (Calculated Kilograms): 102.359413 Constitutional: AAO x 3, well-developed, well-nourished, other (appears fatigued) Respiratory: No accessory muscle use, No respiratory distress; chest expansion is symmetric, chest is bilaterally symmetric, other (diminished based bilat) Cardiovascular: regular rate-rhythm; No JVD; tachycardia Gastrointestional: No tender; soft, round, audible bowel sounds Extremities: other (mod bilat LE swelling) Neurologic/Psychiatric: other (moves all extremities) Skin: No rash on exposed areas, No ulcerations on exposed areas Results/Procedures: Labs Laboratory Tests 01/19/22 13:50: SARS-CoV-2 RNA (RT-PCR) Not Detected 01/20/22 07:10: White Blood Count 9.0, Red Blood Count 4.10L, Hemoglobin 13.1L, Hematocrit 39L, Mean Corpuscular Volume 95, Mean Corpuscular Hemoglobin 32, Mean Corpuscular Hemoglobin Concent 34, Red Cell Distribution Width 13.9, Platelet Count 264, Mean Platelet Volume 9.5, Sodium Level 132L, Potassium Level 4.0, Chloride Level 97L, Carbon Dioxide Level 23, Anion Gap 12, Blood Urea Nitrogen 19H, Creatinine 0.83, Estimat Glomerular Filtration Rate 89, BUN/Creatinine Ratio 23, Glucose Level 100, Calcium Level 8.9 A/P: Assessment: Acute systolic CHF due to dilated cardiomyopathy - Echocardigogram of 01-16-22 is not a technically good study d/t large pleural e ffusion; LVEF is estimated to be approx 25% Large pleural effusion seen on echocardiogram of 01-16-22 - CXR of 01-16-22 Unchanged diffuse interstitial infiltrates with minimal bilateral pleural effusions. Influenza A (+) Pneumonia - management per medical services Mildly elevated troponin likely due to CHF (Type 2 [place]) - reports abnormal MPI approx [address] Glass (was scheduled to have a cardiac cath by Dr. Glass prior to this admission) Tachycardia - improved Hyponatremia - likely dilutional due to decomp CHF, improving with diuretics Poor appetite - reports lack of taste HTN - controlled HLD - statin tx COVID (+) in October 2021 Plan: * Continue furosemide * Continue current HF medications * Discussed [facility] d/t cardiomyopathy - he will consider ([facility] rep to see today) * monitor labs MAMADOU MONTERROSO Jan 19, 2022 11:18
--- NOTE | 2022-01-19 11:40 | Occupational Ther Daily Note ---
OT Current Status-Daily Note Subjective Pt alert, lying in bed. Pt agrees to therapy. Visitor present in room. Mental Status/Objective Patient Orientation: Person, Place, Time, Situation Attachments: IV, Telemetry ADL-Treatment Pt requests to complete shower. Pt ambulated to bathroom without AD, independently. Pt's visitor excessively assisted pt with doffing socks and dressing even after RAMIREZ explained the role of OT. Pt completed shower independently. Due to assistance from visitor, RAMIREZ could not obtain data on pt's ADL scores. After session, pt lying in bed with call light/phone in reach. All needs met. Therapy Code Descriptions/Definitions Functional [place] Measure: 0=Not Assessed/NA 4=Minimal Assistance 1=Total Assistance 5=Supervision or Setup 2=Maximal Assistance 6=Modified [place] 3=Moderate Assistance 7=Complete IndependenceSCALE: Activities may be completed with or without assistive devices. 5-Lixzdlohsm-djujwnw completes the activity by him/herself with no assistance from a helper. 5-Set-up or Clean-up Assistance-helper sets up or cleans up; patient completes activity. [place] assists only prior to or following the activity. 4-Supervision or Touching Assistance-helper provides verbal cues and/or touching/steadying and/or contact guard assistance as patient completes act ivity. Assistance may be provided throughout the activity or intermittently. 3-Partial/Moderate Assistance-helper does LESS THAN HALF the effort. [place] lifts, holds or supports trunk or limbs, but provides less than half the effort. 2-Substantial/Maximal Assistance-helper does MORE THAN HALF the effort. [place] lifts or holds trunk or limbs and provides more than half the effort. 7-Yrpagllxx-rtukay does ALL the effort. Patient does none of the effort to complete the activity. Or, the assistance of 2 or more helpers is required for the patient to complete the activity. If activity was not attempted, code reason: 7-Patient Refused. 9-Not Applicable-not attempted and the patient did not perform the activity before the current illness, exacerbation or injury. 10-Not Attempted due to Environmental Limitations-(lack of equipment, weather restraints, etc.). 88-Not Attempted due to Medical Conditions or Safety Concerns. 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 2=Patient will verbalize/demonstrate understanding of assistive devices/modifications for ADL. 3=Patient will improve strength/tolerance for activity to enable patient to perform ADL's. OT Education/Plan Problem List/Assessment Assessment: Decreased Activ Tolerance Discharge Recommendations Plan/Recommendations: Continue POC Treatment Plan/Plan of Care Patient would benefit from OT for education, treatment and training to promote independence in ADL's, mobility, safety and/or upper extremity function for ADL's. Plan of Care: ADL Retraining, Functional Mobility, UE Funct Exercise/Act Treatment Duration: Jan 30, 2022 Frequency: 3 times per week (3-5x/week ) Estimated Hrs Per Day: .25 hour per day Agreement: Yes Rehab Potential: Guarded Time Start Time: 10:35 Stop Time: 11:15 DATE: Jan 19, 2022 Total Time Billed (hr/min): 40 Billed Treatment Time 1 visit-ADL 3 (40 min) JIM MCGOVERN Jan 19, 2022 11:40
--- NOTE | 2022-01-19 11:46 | ST Dysphagia Evaluation ---
Speech Evaluation-General Medical Diagnosis Influenza A/Hyponatremia Onset Date: Mar 15, 2022 Therapy Diagnosis Therapy Diagnosis: Intact Oropharyngeal Swallow Function Precautions Precautions: Fall Precautions/Isolations: Droplet Isolation, Fall Prevention, Standard Precautions Referral Referring Physician: Dr. Gauthier Reason for Referral: Evaluation/Treatment Medical History Pertinent Medical History: Arthritis, HTN Current History The patient is a 81-year-old male with a past medical history of arthritis and chronic back pain,who presented to the emergency department for evaluation of weakness, cough, and dehydration. The patient tested positive for Influenza A. Reviewed History: Yes Social History Current Living Status: Spouse Speech PLF/Current-Dysphagia Prior Level of Function The patient denied concerns regarding his oropharyngeal swallowing function or the presence of s/s of suspected aspiration with the P.O. items he currently consumes (regular consistency diet with thin liquids). The patient stated he has not had taste since his COVID diagnosis. Due to the patient's lack of taste, the patient has not had an appetite. The patient's family member previously stated the patient experienced odynophagia, however, the patient denied the presence of odynophagia with any consistency he current c onsumes. Subjective The patient was seated upright in his bed, awake and alert, upon entrance to his room by the clinician. The patient greeted the clinician and was agreeable to participation in the clinical bedside swallowing evaluation. The patient's family member remained present at bedside for the evaluation. To note, the patient has a baseline cough prior to the introduction of P.O. trials. Cognitive Status Patient Orientation: Person, Place, Situation, Normal For Age Oral Motor Skills Dentition: Natural Denture Type: Full- Upper & Lower Current Food Consistancy: Regular, Thin Liquids Ability to Follow Directions: Excellent Oral Expression Ability: No Impairment Voice Voice Phonatory-Based Quality: Normal Voice Pitch: Normal Voice Loudness: Normal Face Facial Symmetry: Symmetrical Oral-Facial Assessment Oral-Facial Dentition: Normal Labial Seal Description: Normal Smile: Normal Lingual Protrusion: Normal Lingual Strength: Normal Volitional Dry Swallow: Yes Voluntary Cough: Yes Can Clear Throat Volitionally: Yes Dysphagia Evaluation Consistencies Presented: Regular, Thin Liquid, Pureed The patient does not display oral impairments to the swallow function. The patient does not display pharyngeal impairments to the swallow function. The patient does not display overt s/s of suspected aspiration with trials of thin liquid by cup edge, puree, or solid consistencies. The patient's vocal quality remains clear following the swallow with each trial administered. Dietary Recommendations: Regular Liquid Recommendations: Thin Recommendations: - Continue a regular consistency diet with thin liquids, as tolerated. - Fully upright and alert for P.O. intake. - Small, single bites and sips. - Monitor for s/s of suspected aspiration with P.O. intake. If demonstrated, contact speech pathology. - Consider a referral to a operating system designer to discuss nutritional supplements and approaches to meet daily nutritional goals during periods of reduced P.O. intake. - Discharge from skilled speech pathology services. The results and recommendations were discussed with the patient, the patient's family member, and the RN immediately following completion of the evaluation. The patient displays an intact oropharyngeal swallow function. Overt s/s of suspected aspiration were not demonstrated with thin liquids, puree, or solid consistencies administered. Speech-Plan Treatment Plan Speech Therapy Treatment Plan: Discontinue ST Treatment Duration: Jan 19, 2022 Frequency: 1 time per week Estimated Hrs Per Day: .25 hour per day Rehab Potential: Guarded Safety Risks/Education Teaching Recipient: Patient, Family Teaching Methods: Discussion Response to Teaching: Verbalize Understanding Education Topics Provided: Results, Recommendations, Plan of Care Time Speech Therapy Time In: 11:20 Speech Therapy Time Out: 11:36 DATE: Jan 19, 2022 Total Billed Time: 16 Billed Treatment Time 1, JIM PITTS [facility] ST Jan 19, 2022 11:46
[2022-01-19 12:00] VITALS: BP 98/64
[2022-01-19] MEDS: NS IV 1000 ML 1,000 ML IV SCH (16:13)
--- NOTE | 2022-01-19 16:28 | Progress Note - Hospitalist ---
Subjective HPI/CC On Admission Date Seen by Provider: Jan 19, 2022 Time Seen by Provider: 11:35 Patient is a 81-year-old male with past medical history of hypertension, hyperlipidemia and recent failed stress test who presented to the emergency department due to generalized weakness and poor oral intake. He recently had COVID at the end of October and since that time has had no taste. He then was diagnosed with flu A this week and has continued to have poor oral intake and has been very weak. He did have a cough for few days but feels that this is improving now. He was seen by his primary care PA today and referred to the emergency department due to his weakness. He was found to be quite hyponatremic with a sodium of 123 also had an elevated troponin. He was actually scheduled to have a cardiac cath today but that was canceled due to his current illness. He was admitted to the floor for further management. Subjective/Events-last exam He is feeling better. He does not have much of an appetite. He denies shortness of breath. He denies chest pain. Objective Exam Vital Signs Vital Signs Date Time Temp Pulse Resp B/P (MAP) Pulse Ox O2 Delivery O2 Flow Rate FiO2 01/19/22 15:31 98 Room Air 0.00 01/19/22 13:16 82 01/19/22 12:00 36.1 18 98/64 (75) 01/18/22 06:24 21 Capillary Refill : General Appearance: No Apparent Distress, WD/WN Respiratory: Lungs Clear, No Respiratory Distress Cardiovascular: Regular Rate, Rhythm, No Murmur Gastrointestinal: Normal Bowel Sounds, Soft Extremity: Normal Inspection, No Pedal Edema Neurologic/Psychiatric: Alert, Normal Mood/Affect Skin: Normal Color, Warm/Dry Results/Procedures Lab Laboratory Tests 01/19/22 05:49 Patient resulted labs reviewed. Assessment/Plan Assessment and Plan Assess & Plan/Chief Complaint NSTEMI HTN HLD Acute on chronic HFrEF Pleural effusion Follows with Dr. Glass Cardiology following ASA and Toprol XL Echo with EF of 25% Continue Lasix Possible left heart cath LifeVest COVID exposure COVID negative Hyponatremia Sodium 129 Monitor Flu A Weakness Continue Xofluza from home PT/OT DVT ppx: Lovenox Diagnosis/Problems Diagnosis/Problems (1) NSTEMI (non-ST elevated myocardial infarction) Status: Acute (2) Acute on chronic HFrEF (heart failure with reduced ejection fraction) Status: Acute (3) Influenza A Status: Acute (4) Hyponatremia Status: Acute (5) Poor appetite Status: Acute ASHER CHINCHILLA MD Jan 19, 2022 16:28
[2022-01-19 16:53] VITALS: BP 97/66
[2022-01-19] MEDS: ENOXAPARIN 40 MG/0.4 ML (LOVENOX) SYR SC SCH (17:24)
--- NOTE | 2022-01-19 17:33 | Progress Note - Cardiology ---
Cardiology SOAP Progress Note Subjective: persistent dry cough Does not report cp or palp or syncope or shortness of breath at rest Some gen malaise Does not report n/v/d Objective: I&O/Vital Signs 01/19/22 01/19/22 01/19/22 01/19/22 07:24 07:52 08:00 08:00 Temp 36.8 Pulse 89 86 Resp 16 B/P (MAP) 114/77 (89) Pulse Ox 98 95 O2 Delivery Room Air Room Air Room Air O2 Flow Rate 0.00 01/19/22 01/19/22 01/19/22 01/19/22 12:00 13:16 15:31 16:53 Temp 36.1 36.7 Pulse 82 82 73 Resp 18 18 B/P (MAP) 98/64 (75) 97/66 (76) Pulse Ox 97 98 96 O2 Delivery Room Air Room Air Room Air O2 Flow Rate 0.00 01/19/22 00:00 Intake Total 1330 ml Output Total 900 ml Balance 430 ml Weight (Pounds): 227 Weight (Ounces): 0.0 Weight (Calculated Kilograms): 102.249287 Constitutional: AAO x 3, well-developed, well-nourished, other (appears fatigued) Respiratory: No accessory muscle use, No respiratory distress; chest expansion is symmetric, chest is bilaterally symmetric, other (diminished based bilat) Cardiovascular: regular rate-rhythm; No JVD; tachycardia Gastrointestional: No tender; soft, round, audible bowel sounds Extremities: other (mod bilat LE swelling) Neurologic/Psychiatric: other (moves all extremities) Skin: No rash on exposed areas, No ulcerations on exposed areas Results/Procedures: Labs Laboratory Tests 01/19/22 05:49: White Blood Count 7.9, Red Blood Count 3.95L, Hemoglobin 12.8L, Hematocrit 37L, Mean Corpuscular Volume 94, Mean Corpuscular Hemoglobin 32, Mean Corpuscular Hemoglobin Concent 35, Red Cell Distribution Width 13.7, Platelet Count 238, Mean Platelet Volume 9.7, Sodium Level 129L, Potassium Level 3.7, Chloride Level 96L, Carbon Dioxide Level 24, Anion Gap 9, Blood Urea Nitrogen 19H, Creatinine 0.82, Estimat Glomerular Filtration Rate 89, BUN/Creatinine Ratio 23, Glucose Level 115H, Calcium Level 8.4L 01/19/22 13:50: SARS-CoV-2 RNA (RT-PCR) Not Detected Laboratory Tests 01/18/22 05:20 01/19/22 05:49 A/P: Assessment: Acute systolic CHF due to dilated cardiomyopathy - Echocardigogram of 01-16-22 is not a technically good study d/t large pleural effusion; LVEF is estimated to be approx 25% Large pleural effusion seen on echocardiogram of 01-16-22 - CXR of 01-16-22 Unchanged diffuse interstitial infiltrates with minimal bilateral pleural effusions. Influenza A (+) Pneumonia - management per medical services Mildly elevated troponin likely due to CHF (Type 2 [place]) - reports abnormal MPI approx [address] Glass (was scheduled to have a cardiac cath by Dr. Glass prior to this admission) Tachycardia - improved Hyponatremia - likely dilutional due to decomp CHF, improving with diuretics Poor appetite - reports lack of taste HTN - controlled HLD - statin tx COVID (+) in October 2021 Plan: * Continue furosemide, change to oral * Continue current HF medications * Discussed Life Vest d/t cardiomyopathy - he will consider (Life Vest rep to see today) * Monitor labs * Card cath tomorrow. I discussed the rationale, procedure, risks, benefits, potential complications, and alternatives of card cath and possible ad hoc cor intervention with him in detail and answered questions. He understands and is willing to proceed RUBEN BARRAGAN MD [facility] Jan 19, 2022 17:33
[2022-01-19 20:20] VITALS: BP 99/68
[2022-01-19] MEDS: MELATONIN 3 MG TABLET PO PRN (20:32)
[2022-01-20] VITALS (17 sets, daily range): BP systolic 101–131; BP diastolic 68–83
[2022-01-20] MEDS ORDERED: LIDOCAINE 1% INJ 30 ML (XYLOCAINE) VIAL ONE (06:50)
[2022-01-20] MEDS ORDERED: HEParin (CATH LAB) 2,000 ML IV ONE (06:50)
[2022-01-20 07:18] LABS: HEMATOCRIT 39 % (40-54); HEMOGLOBIN 13.1 g/dL (13.3-17.7); MEAN CORPUSCULAR HEMOGLOBIN 32 pg (25-34); MEAN CORPUSCULAR HGB CONC 34 g/dL (32-36); MEAN CORPUSCULAR VOLUME 95 fL (80-99); MEAN PLATELET VOLUME 9.5 fL (9.0-12.2); PLATELET COUNT 264 10^3/uL (130-400)
[2022-01-20] MEDS: RT-ALBUTEROL/IPRATROPIUM 3 ML (DUONEB) VIAL INH SCH (07:20)
--- NOTE | 2022-01-20 07:28 | Physical Therapy Progress Note ---
Therapy Progress Note Patient is up independently in room. Patient to have heart cath on this date. PT will resume tomorrow a.m. if indicated. MARGOT KELLEY PT Jan 20, 2022 07:28
[2022-01-20 07:40] LABS: CALCIUM 8.9 MG/DL (8.5-10.1); CREATININE SERUM 0.83 MG/DL (0.60-1.30)
[2022-01-20] MEDS: SACUBITRIL/VALSARTAN 24/26 MG (ENTRESTO) TABLET PO SCH ×2 (07:54→19:46)
[2022-01-20] MEDS: ASPIRIN 81 MG CHEW (CHILDREN'S ASA) PO SCH (07:55)
[2022-01-20] MEDS: CLOPIDOGREL 75 MG (PLAVIX) TABLET PO SCH (08:00)
[2022-01-20] MEDS: EMPAGLIFLOZIN 10 MG TABLET (JARDIANCE) PO SCH (08:00)
[2022-01-20] MEDS: FUROSEMIDE 40 MG (LASIX) TAB PO SCH (08:00)
[2022-01-20] MEDS: KCL 10 MEQ TAB (MICRO K) PO SCH ×2 (08:00→17:48)
[2022-01-20] MEDS: SPIRONOLACTONE 25 MG (ALDACTONE) TAB PO SCH (08:00)
--- NOTE | 2022-01-20 09:17 | Occ Therapy Progress Note ---
Therapy Progress Note Pt refused OT. Pt reports he is too tired. Pt is scheduled for a heart cath today. OT will return to attempt tx at a later time. JIM MCGOVERN Jan 20, 2022 09:17
[2022-01-20] MEDS ORDERED: fentaNYL INJ 100 MCG/2 ML AMP ONE (12:15)
[2022-01-20] MEDS ORDERED: MIDAZOLAM 5 MG/5 ML (VERSED) VIAL ONE (12:16)
--- NOTE | 2022-01-20 13:15 | Progress Note - Cardiology ---
Cardiology SOAP Progress Note Subjective: Cough improving No cp or palp or syncope Shortness of breath better No swelling No n/v/d No focal weakness Objective: I&O/Vital Signs 01/20/22 01/20/22 01/20/22 01/20/22 01:16 04:43 07:06 07:20 Temp 36.9 36.7 Pulse 85 96 88 Resp 16 18 B/P (MAP) 108/74 (85) 131/83 (99) Pulse Ox 96 96 97 O2 Delivery Room Air Room Air Room Air O2 Flow Rate 0.00 01/20/22 01/20/22 01/20/22 01/20/22 08:00 08:06 10:05 11:03 Temp 36.6 36.6 36.6 Pulse 90 90 85 Resp 18 18 B/P (MAP) 118/80 (93) 117/72 (87) Pulse Ox 97 97 97 O2 Delivery Room Air Room Air Room Air 01/20/22 00:00 Intake Total 1350 ml Output Total 400 ml Balance 950 ml Weight (Pounds): 227 Weight (Ounces): 0.0 Weight (Calculated Kilograms): 102.483324 Constitutional: AAO x 3, well-developed, well-nourished, other (appears fatigued) Respiratory: No accessory muscle use, No respiratory distress; chest expansion is symmetric, chest is bilaterally symmetric, other (diminished based bilat) Cardiovascular: regular rate-rhythm; No JVD; tachycardia Gastrointestional: No tender; soft, round, audible bowel sounds Extremities: other (mod bilat LE swelling) Neurologic/Psychiatric: other (moves all extremities) Skin: No rash on exposed areas, No ulcerations on exposed areas Results/Procedures: Labs Laboratory Tests 01/19/22 13:50: SARS-CoV-2 RNA (RT-PCR) Not Detected 01/20/22 07:10: White Blood Count 9.0, Red Blood Count 4.10L, Hemoglobin 13.1L, Hematocrit 39L, Mean Corpuscular Volume 95, Mean Corpuscular Hemoglobin 32, Mean Corpuscular Hem oglobin Concent 34, Red Cell Distribution Width 13.9, Platelet Count 264, Mean Platelet Volume 9.5, Sodium Level 132L, Potassium Level 4.0, Chloride Level 97L, Carbon Dioxide Level 23, Anion Gap 12, Blood Urea Nitrogen 19H, Creatinine 0.83, Estimat Glomerular Filtration Rate 89, BUN/Creatinine Ratio 23, Glucose Level 100, Calcium Level 8.9 Laboratory Tests 01/19/22 05:49 01/20/22 07:10 A/P: Assessment: Acute systolic CHF due to ischemic dilated cardiomyopathy - Echo of 01-16-22 is not a technically good study d/t large pleural effusion; LVEF is estimated to be approx 25% - Card cath o 01-20-22: severe cor calcification of all cors, LMCA 60-70% distal stenosis, LAD 60-70% ostial and 90% mid stenoses, D1 80-90% prox stenosis, RI 70% ostial and 100% distal stenoses, RCA dominant and 100% mid-vessel stenosis, prominent L to R collaterals, LVEF 30%, LVEDP 28 mmHg Pleural effusion seen on echocardiogram of 01-16-22 - CXR of 01-16-22 Unchanged diffuse interstitial infiltrates with minimal bilateral pleural effusions. Influenza A (+) Pneumonia - management per medical services Mildly elevated troponin likely due to CHF (Type 2 CT) - reports abnormal MPI approx [address] Glass (was scheduled to have a cardiac cath by Dr. Glass prior to this admission) Tachycardia - improved Hyponatremia - likely dilutional due to decomp CHF, improving with diuretics Poor appetite HTN - controlled HLD - statin tx COVID (+) in October 2021 Plan: * Complex management * Consult CV surg for CABG * Continue heart failure regimen * Continue ASA * Add statin * Life Vest if to be d/c'd (if not accepted for surgery) * Monitor labs RUBEN BARRAGAN MD FACP [facility] Jan 20, 2022 13:15
--- NOTE | 2022-01-20 14:45 | Cardiology Discharge Summary ---
Diagnosis/Chief Complaint Date of Admission Jan 15, 2022 at 15:47 Date of Discharge 01/20/22 Final/Discharge Diagnosis Acute systolic CHF due to ischemic dilated cardiomyopathy - Echo of 01-16-22 is not a technically good study d/t large pleural effusion; LVEF is estimated to be approx 25% - Card cath o 01-20-22: severe cor calcification of all cors, LMCA 60-70% distal stenosis, LAD 60-70% ostial and 90% mid stenoses, D1 80-90% prox stenosis, RI 70% ostial and 100% distal stenoses, RCA dominant and 100% mid-vessel stenosis, prominent L to R collaterals, LVEF 30%, LVEDP 28 mmHg Pleural effusion seen on echocardiogram of 01-16-22 - CXR of 01-16-22 Unchanged diffuse interstitial infiltrates with minimal bilateral pleural effusions. Influenza A (+) and ?Pneumonia - management per Hosp svce Mildly elevated troponin likely due to CHF (Type 2 [place]) - reports abnormal MPI approx [address] Glass (was scheduled to have a cardiac cath by Dr. Glass prior to this admission) Tachycardia - improved Hyponatremia - likely dilutional due to decomp CHF, improving with diuretics Poor appetite HTN - controlled HLD - statin tx COVID (+) in October 2021 Chief Complaint/HPI Chief Complaint/HPI Mr. Jones is a 81 yr old male admitted to [facility] from the ED with increasing weakness, poor appetite, hyponatremia, Influenza A (+) and positive troponin. He states he had COVID at the end of October and has had some persistent malaise along with poor appetite since then. He reports several weeks ago he developed localized, left sided chest pressure. He states he saw Dr. Glass (primary compliance mgr) and had a stress test approx 5 weeks ago which was abnormal per his report. He reports he was to have a cardiac cath today, but d/t feeling progressively worse so he was advised to go to the ED. He reports his is currently hospitalized here with Influenza A as well. He reports he had a significant cough for about 2 days. This has improved, but not resolved. He does not report any chest pressure at this time; mostly congestion and wheezing. He denies any n/v/d. He reports bilat LE swelling which also developed several weeks ago and has become increasing worse. He states Dr. Glass gave him a fluid pill to take, but he has not taken it. Please refer to echo and cath report for cardiac w/u Heart failure meds have been optimized See our note of today's date for condition at discharge and recommendations After cath today (01/20/22) I called Dr Mcallister of CV surg svce at [facility] at approx 1:[address] [facility] Mcallister directed me to the [id number] with whom I spoke around 2pm and the hospitalist service accepted Mr Jones in transfer for consideration of CABG. I have spoken with Mr Jones and his family regarding above plan Discharge Summary Hospital Course Pending Labs Laboratory Tests 01/20/22 07:10: White Blood Count 9.0, Red Blood Count 4.10, Hemoglobin 13.1, Hematocrit 39, Mean Corpuscular Volume 95, Mean Corpuscular Hemoglobin 32, Mean Corpuscular Hemoglobin Concent 34, Red Cell Distribution Width 13.9, Platelet Count 264, Mean Platelet Volume 9.5, Sodium Level 132, Potassium Level 4.0, Chloride Level 97, Carbon Dioxide Level 23, Anion Gap 12, Blood Urea Nitrogen 19, Creatinine 0.83, Estimat Glomerular Filtration Rate 89, BUN/Creatinine Ratio 23, Glucose Level 100, Calcium Level 8.9 Discussion & Recommendations Home Medications Reviewed patient Home Medication Reconciliation performed by pharmacy medication reconciliations hydroelectric systems technician and/or nursing. Patients Allergies have been reviewed. Discharge Home Medications: Reviewed and agree with Discharge Medication list on patient's Discharge Instruction sheet RUBEN BARRAGAN MD FACP [facility] Jan 20, 2022 14:45
[2022-01-20] MEDS: RT-ALBUTEROL/IPRATROPIUM 3 ML (DUONEB) VIAL INH PRN (16:55)
[2022-01-20] MEDS: ENOXAPARIN 40 MG/0.4 ML (LOVENOX) SYR SC SCH (18:37)
[2022-01-20] MEDS: NS IV 1000 ML 1,000 ML IV SCH (18:41)
[2022-01-20] MEDS ORDERED: RT-ALBUTEROL/IPRATROPIUM 3 ML (DUONEB) VIAL INH SCH (21:00)
== END 2022-01-20 20:46 | disposition short-term general hospital (02) | DRG 280 ==
LOC: EDUNIT# 12:09 → ER 12:11 → 4TH 14:48 → OBSVTOIN 15:47
PROVIDERS: ADMIT Family Medicine; ATTEND Internal Medicine
DX: I11.0 Hypertensive heart disease with heart failure (principal); I50.23 Acute on chronic systolic (congestive) heart failure; I21.A1 Myocardial infarction type 2; J18.9 Pneumonia, unspecified organism; E87.1 Hypo-osmolality and hyponatremia; I42.0 Dilated cardiomyopathy; E78.5 Hyperlipidemia, unspecified; J10.1 Influenza due to other identified influenza virus with other respiratory manifestations; R53.1 Weakness; M19.90 Unspecified osteoarthritis, unspecified site; G89.29 Other chronic pain; M54.9 Dorsalgia, unspecified; Z86.16 Personal history of COVID-19; I25.5 Ischemic cardiomyopathy; R00.0 Tachycardia, unspecified; Z20.822 Contact with and (suspected) exposure to COVID-19
CPT/HCPCS: 36415; 71046; 80048; 80053; 83735; 84484; 85007; 85027; 87081; 87636; 93005; 93306; 93458; 94640; 94664; 94760

== ENCOUNTER → 2022-01-15 | Outpatient (CLI) | payer MEDICARE, OTHER ==
[~2022-01-15] MED LIST changes: +ASPI-1238 PO; +ATOR40TA70 PO; +BENZ-36 PO; +CHOL10007 PO; +DOCU-26 PO; +FLUT16SP22 NSEACH; +LISI20TA26 PO
--- NOTE | 2022-01-15 14:48 | Diagnostic Imaging Report ---
CHEST PA/LAT (2 VIEW) Indication: Cough and influenza Comparison: 11/20/2021 Findings: Bibasilar hazy airspace and interstitial opacities have developed. No pleural effusion or pneumothorax. Normal heart size and mediastinal contours. Impression: New basilar pulmonary opacities may be due to atypical infection, such as viral pneumonia. Dictated by: Dictated on workstation # [id number]
== END ==
LOC: RAD 10:29
PROVIDERS: ATTEND Internal Medicine
DX: R91.8 Other nonspecific abnormal finding of lung field (principal)
CPT/HCPCS: 71046

== ENCOUNTER 2022-06-12 09:06 | Outpatient (RCR) | payer MEDICARE, OTHER ==
[~2022-06-12 09:06] MED LIST changes: +ASPI-1238 PO; +ATOR40TA70 PO; +BENZ-36 PO; +CHOL10007 PO; +DOCU-26 PO; +FLUT16SP22 NSEACH; +LISI20TA26 PO
== END 2022-06-14 | disposition home or self-care (01) ==
PROVIDERS: ATTEND Physician Assistant
DX: M54.16 Radiculopathy, lumbar region (principal)

== ENCOUNTER 2022-07-03 08:29 | Outpatient (RCR) | payer MEDICARE, OTHER | END 2022-07-15 | disposition home or self-care (01) | PROVIDERS: ATTEND Physician Assistant | DX: M54.16 Radiculopathy, lumbar region (principal) ==

== ENCOUNTER 2022-08-07 08:00 | Outpatient (RCR) | payer MEDICARE, OTHER | END 2022-08-14 | disposition home or self-care (01) | PROVIDERS: ATTEND Physician Assistant | DX: M54.16 Radiculopathy, lumbar region (principal) ==

== ENCOUNTER 2022-09-10 14:23 | Outpatient (RCR) | payer MEDICARE, OTHER | END 2022-09-14 | disposition home or self-care (01) | PROVIDERS: ATTEND Physician Assistant | DX: M54.16 Radiculopathy, lumbar region (principal) ==

== ENCOUNTER 2022-10-14 10:25 | Outpatient (RCR) | payer MEDICARE, OTHER | END 2022-10-15 | disposition home or self-care (01) | PROVIDERS: ATTEND Physician Assistant | DX: M54.16 Radiculopathy, lumbar region (principal) ==

== ENCOUNTER 2022-12-02 11:01 | Outpatient (RCR) | payer MEDICARE, OTHER | END 2022-12-15 | disposition home or self-care (01) | PROVIDERS: ATTEND Physician Assistant | DX: M54.16 Radiculopathy, lumbar region (principal) ==

== ENCOUNTER 2022-12-09 15:05 | Emergency (ER) | payer MEDICARE, OTHER ==
[~2022-12-09] VITALS: Ht 177.8 cm; Wt 83.5 kg
[2022-12-09 15:42] LABS: BASOPHILS % (AUTO) 0 % (0-10); EOSINOPHILS # (AUTO) 0.1 10^3/uL (0.0-0.3); EOSINOPHILS % (AUTO) 1 % (0-10); HEMATOCRIT 45 % (40-54); HEMOGLOBIN 15.7 g/dL (13.3-17.7); LYMPHOCYTES # (AUTO) 1.4 10^3/uL (1.0-4.0); LYMPHOCYTES % (AUTO) 15 % (12-44); MEAN CORPUSCULAR HEMOGLOBIN 33 pg (25-34); MEAN CORPUSCULAR HGB CONC 35 g/dL (32-36); MEAN CORPUSCULAR VOLUME 96 fL (80-99); MEAN PLATELET VOLUME 9.9 fL (9.0-12.2); MONOCYTES # (AUTO) 0.9 10^3/uL (0.0-1.0); MONOCYTES % (AUTO) 9 % (0-12); NEUTROPHILS # (AUTO) 7.3 10^3/uL (1.8-7.8); NEUTROPHILS % (AUTO) 75 % (42-75); PLATELET COUNT 221 10^3/uL (130-400); WHITE BLOOD COUNT 9.7 10^3/uL (4.3-11.0)
--- NOTE | 2022-12-09 15:42 | ED Cardiac General ---
History of Present Illness General Chief Complaint: Cardiac/General Problems Stated Complaint: HIGH BP Nursing Triage Note: HAS BEEN TRYING TO KEEP HIS BLOOD PRESSURE DOWN AT HOME FOR THE LAST WEEKL, WAS SEEN IN THE ED AT [facility] ON WEDNESDAY. DR VIRK HAS BEEN MONITORING/MANAGING HIS BP WHILE AT HOME. SX NAUSEA AND HEADACHE Source: patient Exam Limitations: no limitations (MANNY CRANE APRN) History of Present Illness Date Seen by Provider: Dec 09, 2022 Time Seen by Provider: 15:20 Initial Comments 82-year-old male presents to the ER with reports of elevated blood pressure for the last couple of weeks, states that it has been worse for the last week. He was seen in the ER on Wednesday at [facility] in [place] and was told that his sodium level was low. He was given a liter of fluids. He saw his primary care provider yesterday who repeated his blood work, received a phone call today saying that his sodium was low again. Patient reports blood pressures ranging from 170s to 190s systolic. He complains of headache located at his forehead. Reports mild blurred vision. Denies dizziness, chest pain, shortness of air, fevers. He reports that he has been working with his primary care provider to control his blood pressure. He was recently switched from lisinopril to losartan. He also takes carvedilol. He reports that he had multiple conversations with his primary care provider today who ultimately told him to come to the ER for evaluation. (MANNY CRANE APRN) Allergies and Home Medications Allergies Coded Allergies: erythromycin base (Verified Allergy, Mild, 12/09/22) Patient Home Medication List Home Medication List Reviewed: Yes (MANNY CRANE APRN) Aspirin (Aspirin EC) 81 Mg Tablet., 81 MG PO DAILY, (Reported) Entered as Reported by: AISHA LOTT on 01/16/221548 Atorvastatin Calcium (Atorvastatin Calcium) 40 Mg Tablet, 40 MG PO HS, (Reported) Entered as Reported by: AISHA LOTT on 01/16/221548 Benzonatate (Benzonatate) 100 Mg Capsule, 100 MG PO Q8H PRN for COUGH, (Reported) Entered as Reported by: AISHA LOTT on 01/16/221548 Cholecalciferol (Vitamin D3) (Vitamin D3) 25 Mcg (1000 Unit) Capsule, 25 MCG PO DAILY, (Reported) Entered as Reported by: AISHA LOTT on 01/16/22 154 Diclofenac Sodium (Diclofenac Sodium) 50 Mg Tablet.dr, 50 MG PO BID, (Reported) Entered as Reported by: ANNA MONTEZ on 06/22/16 1007 Docusate Sodium (Stool Softener) 100 Mg Capsule, 100-200 MG PO DAILY, (Reported) Entered as Reported by: AISHA LOTT on 01/16/22 154 Fluticasone Propionate (Fluticasone Propionate) 50 Mcg/Actuation [place].susp, 2 SPRAYS NSEACH DAILY PRN for CONGESTION, (Reported) Entered as Reported by: AISHA LOTT on 01/16/221548 Lisinopril (Lisinopril) 20 Mg Tablet, 20 MG PO BID, (Reported) Entered as Reported by: AISHA LOTT on 01/16/221548 Review of Systems Review of Systems Constitutional: see HPI (MANNY CRANE APRN) Past [id number] Hx Patient Social History Tobacco Use?: No Use of E-Cig and/or Vaping dev: No Substance use?: No Alcohol Use?: No Pt feels they are or have been: No (MANNY CRANE APRN) Immunizations Up To Date Influenza Vaccine Up-to-Date: No; Not Current First/Initial COVID19 Vaccinat: 2 SHOTS Second COVID19 Vaccination Jarvis: NONE Third COVID19 Vaccination Date: NONE (MANNY CRANE APRN) Seasonal Allergies Seasonal Allergies: Yes (MANNY CRANE APRN) Past Medical History Surgery/Hospitalization HX: HTN, OPEN HEART, RIGHT HIP REPLACEMENT, BOTH SHOULDER REPLACEMENTS, MELANOMA CANCER, Reproductive Disorders: No Sexually Transmitted Disease: No HIV/AIDS: No Arthritis, Chronic Back Pain Loss of Vision: Bilateral Hearing Impairment: Denies Melanoma Adverse Reaction/Blood Tranf: No (N/A) (MANNY CRANE APRN) Physical Exam Vital Signs Vital Signs - First Documented 12/09/22 15:11 Temp 36.9 Pulse 75 Resp 18 B/P (MAP) 195/114 (141) Pulse Ox 100 O2 Delivery Room Air (EARNESTINE BRAVO MD) Vital Signs Capillary Refill : Less Than 3 Seconds (MANNY CRANE R ENMA) Height, Weight, BMI Height: 5'10.00" Weight: 227lbs. 0.0oz. 102.096469tt; 26.00 BMI Method: General Appearance: No Apparent Distress, WD/WN Neck: Normal Inspection, Supple Respiratory: Lungs Clear, Normal Breath Sounds, No Accessory Muscle Use, No Respiratory Distress Cardiovascular: Regular Rate, Rhythm, Systolic Murmur Extremity: Normal Inspection, Normal Range of Motion, No Pedal Edema Neurologic/Psychiatric: Alert, Normal Mood/Affect Skin: Normal Color, Warm/Dry (MANNY CRANE APRN) Progress/Results/Core Measures Results/Orders Lab Results Laboratory Tests Test 12/09/22 15:20 Range/Units White Blood Count 9.7 4.3-11.0 10^3/uL Red Blood Count 4.70 4.30-5.52 10^6/uL Hemoglobin 15.7 13.3-17.7 g/dL Hematocrit 45 40-54 % Mean Corpuscular Volume 96 80-99 fL Mean Corpuscular Hemoglobin 33 25-34 pg Mean Corpuscular Hemoglobin Concent 35 32-36 g/dL Red Cell Distribution Width 13.2 10.0-14.5 % Platelet Count 221 130-400 10^3/uL Mean Platelet Volume 9.9 9.0-12.2 fL Immature Granulocyte % (Auto) 1 % Neutrophils (%) (Auto) 75 42-75 % Lymphocytes (%) (Auto) 15 12-44 % Monocytes (%) (Auto) 9 0-12 % Eosinophils (%) (Auto) 1 0-10 % Basophils (%) (Auto) 0 0-10 % Neutrophils # (Auto) 7.3 1.8-7.8 10^3/uL Lymphocytes # (Auto) 1.4 1.0-4.0 10^3/uL Monocytes # (Auto) 0.9 0.0-1.0 10^3/uL Eosinophils # (Auto) 0.1 0.0-0.3 10^3/uL Basophils # (Auto) 0.0 0.0-0.1 10^3/uL Immature Granulocyte # (Auto) 0.1 0.0-0.1 10^3/uL Sodium Level 126 L 135-145 MMOL/L Potassium Level 5.1 H 3.6-5.0 MMOL/L Chloride Level 93 L 98-107 MMOL/L Carbon Dioxide Level 20 L 21-32 MMOL/L Anion Gap 13 5-14 MMOL/L Blood Urea Nitrogen 16 7-18 MG/DL Creatinine 1.31 H 0.60-1.30 MG/DL Estimat Glomerular Filtration Rate 55 BUN/Creatinine Ratio 12 Glucose Level 116 H 70-105 MG/DL Calcium Level 9.5 8.5-10.1 MG/DL Corrected Calcium 9.2 8.5-10.1 MG/DL Magnesium Level 2.2 1.6-2.4 MG/DL Total Bilirubin 1.2 H 0.1-1.0 MG/DL Aspartate Amino Transf (AST/SGOT) 40 H 5-34 U/L Alanine Aminotransferase (ALT/SGPT) 31 0-55 U/L Alkaline Phosphatase 47 40-136 U/L B-Type Natriuretic Peptide 246.2 H <100.0 PG/ML Total Protein 7.9 6.4-8.2 GM/DL Albumin 4.4 3.2-4.5 GM/DL (EARNESTINE BRAVO MD) Vital Signs/I&O 12/09/22 12/09/22 15:11 18:54 Temp 36.9 Pulse 75 70 Resp 18 20 B/P (MAP) 195/114 (141) 172/99 Pulse Ox 100 97 O2 Delivery Room Air 12/10/22 00:00 Intake Total 1000 ml Balance 1000 ml (EARNESTINE BRAVO MD) Blood Pressure Mean: 141 Progress Progress Note : Progress Note Patient seen and evaluated, resting comfortably in bed, no acute distress. Based on exam and symptoms, cardiac work-up initiated including CBC, CMP, magnesium, BNP, EKG. 1734 Labs reviewed. CBC grossly normal. CMP shows decreased sodium 126, slightly elevated potassium 5.1, decreased chloride 93, slightly decreased CO2 20, creatinine slightly elevated 1.31, GFR decreased 55, BUN normal 16. Total bilirubin slightly elevated 1.2, AST slightly elevated 40. BNP slightly elevated to 46. Blood pressure reduced on, has been fluctuating between 160 and 170 systolic. Patient was prescribed amlodipine today by his primary care provider, states that he has not yet started it. Will give the first dose of his amlodipine now and monitor for short period. 1820 blood pressure 160s systolic after amlodipine. Patient is stable for discharge. Patient instructed to call his primary care provider tomorrow to schedule a follow-up appointment. Patient also instructed to not take the next 2 doses of his potassium. Discharge instructions and return precautions provid ed. (MANNY CRANE APRN) Initial ECG Impression Date: Dec 09, 2022 Initial ECG Impression Time: 16:18 Initial ECG Rate: 68 Initial ECG Rhythm: Normal Sinus Initial ECG Intervals: QRS (141) Initial ECG Impression: Nonspecific Changes Initial ECG Comparisson: Unchanged (MANNY CRANE APRN) Departure Impression Primary Impression: HTN (hypertension) Disposition: HOME, SELF-CARE Condition: Stable Departure-Patient Inst. Decision time for Depature: 18:23 (MANNY CRANE APRN) Referrals: LONI VIRK MD (PCP) Primary Care Physician Patient Instructions: High Blood Pressure (DC), Chest Pain That Is Not Caused by the Heart (DC) Add. Discharge Instructions: Skip the next 2 doses of your potassium. Start taking your amlodipine as prescribed. Continue taking all your other medications as prescribed. Call Dr. Virk's office in the morning to schedule a follow-up appointment. Return for significantly elevated blood pressure, headache, dizziness, blurry vision, weakness on one side your body, or any other new, concerning, or worsening symptoms. All discharge instructions reviewed with patient and/or family. Voiced unders tanding. ATTENDING PHYSICIAN NOTE: I was physically present as attending physician in the emergency department during the care of this patient, but I was not directly involved in the decision making or delivery of care for this patient. (EARNESTINE BRAVO MD) Copy Copies To 1: LONI VIRK MD, BRITTANY R APRN Dec 09, 2022 15:42 EARNESTINE BRAVO MD Dec 10, 2022 12:00
[2022-12-09 15:44] LABS: ALBUMIN 4.4 GM/DL (3.2-4.5)
[2022-12-09 15:45] LABS: POTASSIUM 5.1 MMOL/L (3.6-5.0)
[2022-12-09 15:46] LABS: CALCIUM 9.5 MG/DL (8.5-10.1)
[2022-12-09 15:47] LABS: TOTAL PROTEIN 7.9 GM/DL (6.4-8.2)
[2022-12-09 15:49] LABS: BILIRUBIN,TOTAL 1.2 MG/DL (0.1-1.0)
[2022-12-09 15:51] LABS: CREATININE SERUM 1.31 MG/DL (0.60-1.30)
[2022-12-09 15:53] LABS: MAGNESIUM 2.2 MG/DL (1.6-2.4)
[2022-12-09] MEDS ORDERED: NS IV 1000 ML 1,000 ML IV SCH (16:00)
[2022-12-09] MEDS ORDERED: amLODIPine 5 MG TABLET PO ONE (17:45)
[2022-12-09 18:54] VITALS: BP 172/99
== END 2022-12-09 18:54 | disposition home or self-care (01) ==
LOC: EDUNIT# 15:05 → ER 15:06
DX: I10 Essential (primary) hypertension (principal); E87.6 Hypokalemia
CPT/HCPCS: 36415; 80053; 83735; 83880; 85025; 93005; 93041; 96360

== ENCOUNTER 2022-12-22 14:10 | Outpatient (RCR) | payer MEDICARE, OTHER ==
[2023-01-03] MEDS ORDERED: LOSA100T58 PO (16:46)
[2023-01-03] MEDS ORDERED: POTA-330 PO (16:46)
[2023-01-03] MEDS ORDERED: BACL10TA PO (16:46)
[2023-01-03] MEDS ORDERED: OXYM30SP25 NSEACH (16:46)
[2023-01-03] MEDS ORDERED: AMIO200T65 PO (16:46)
[2023-01-03] MEDS ORDERED: CARV3.122 PO (16:46)
[2023-01-03] MEDS ORDERED: AMLO-251 PO (16:46)
[2023-01-03] MEDS ORDERED: ISOS30TA82 PO (16:46)
[2023-01-03] MEDS ORDERED: HYDR25TA4 PO (16:46)
[2023-01-03] MEDS ORDERED: DULO30CA49 PO (16:46)
[2023-01-04] MEDS ORDERED: CHOL20002 PO (11:55)
[2023-01-08] MEDS ORDERED: TMSL.4C PO (12:30)
[2023-01-08] MEDS ORDERED: NF-NACL1GT PO (12:30)
[2023-01-08] MEDS ORDERED: LEVO100T PO (12:30)
== END 2023-01-14 | disposition home or self-care (01) ==
PROVIDERS: ATTEND Internal Medicine
DX: M54.16 Radiculopathy, lumbar region (principal)

== ENCOUNTER → 2023-01-01 | Outpatient (CLI) | payer MEDICARE, OTHER ==
[~2023-01-01] MED LIST changes: +AMIO200T65 PO; +AMLO-251 PO; +BACL10TA PO; +CARV3.122 PO; +CHOL20002 PO; +DULO30CA49 PO; +HYDR25TA4 PO; +ISOS30TA82 PO; +LOSA100T58 PO; +OXYM30SP25 NSEACH; +POTA-330 PO
== END ==
LOC: CARD 09:30
PROVIDERS: ATTEND Internal Medicine Cardiovascular Disease
DX: I35.1 Nonrheumatic aortic (valve) insufficiency (principal); I25.10 Atherosclerotic heart disease of native coronary artery without angina pectoris; I11.9 Hypertensive heart disease without heart failure
CPT/HCPCS: 93306

== ENCOUNTER 2023-01-03 14:04 | Inpatient (IN) | payer MEDICARE, OTHER ==
[~2023-01-03] VITALS: Ht 177.8 cm; Wt 83.0 kg
[~2023-01-03 14:04] MED LIST changes: -AMIO200T65 PO; -AMLO-251 PO; -BACL10TA PO; -CARV3.122 PO; -CHOL20002 PO; -DULO30CA49 PO; -HYDR25TA4 PO; -ISOS30TA82 PO; -LOSA100T58 PO; -OXYM30SP25 NSEACH; -POTA-330 PO
[2023-01-03] MEDS ORDERED: NS IV 500 ML 500 ML IV ONE ×2 (16:00→18:00)
--- NOTE | 2023-01-03 16:01 | ED General ---
General Chief Complaint: Dizziness/Syncope Stated Complaint: DIZZINESS/LETHARGIC Nursing Triage Note: PT COMES TO ROOM IN W/C. C/O DIZZY AND WEAKNESS, STARTING 4-5 DAYS AGO AND GETTING WORSE. SON REPORTS PT ISNT EATING OR DRINKING MUCH AND PT SAYS URINE OUTPUT HAS DECREASED. PT REPORTS SEEING DR JONES 3 WEEKS AGO AND CHANGING MEDS. Source of Information: Patient Exam Limitations: No Limitations History of Present Illness Date Seen by Provider: Jan 03, 2023 Time Seen by Provider: 15:52 Initial Comments Here with report of dizziness and weakness over the last several days. Reports that he had a fall about 3 weeks ago and hit very hard on his legs but denies hitting his head. At about that time, he did have change in medication and that caused his blood pressure to go quite low for him from the 190s to the 100s and that is what he thinks made him weak and dizzy. Since the blood pressure gear changer the last 3 weeks so he has had some persistence of dizziness and weakness. That worsened today. Denies fever or chills. Has a little nausea but no vomiting and denies chest pain or breathing problems otherwise. Denies swelling in his legs. Has had some difficulty with urination and is not sure if he is dehydrated. He reports that he feels like he has to go but then does not go very much. Follows with Dr. Jones and Dr. Vrik. Timing/Duration: Changing Over Time, Other (3 weeks) Severity: Moderate Associated Systoms: No Cough, No Fever/Chills, No Shortness of Air; Weakness Allergies and Home Medications Allergies Coded Allergies: erythromycin base (Verified Allergy, Mild, 12/09/22) Patient Home Medication List Home Medication List Reviewed: Yes Amiodarone HCl (Amiodarone HCl) 200 Mg Tablet, 200 MG PO HS, (Reported) Entered as Reported by: CAMILLE POLO on 01/03/231645 Last Action: New Order Amlodipine Besylate (Amlodipine Besylate) 10 Mg Tablet, 10 MG PO HS, (Reported) Entered as Reported by: CAMILLE POLO on 01/03/231645 Last Action: New Order Aspirin (Aspirin EC) 81 Mg Tablet., 81 MG PO DAILY, (Reported) Entered as Reported by: AISHA LOTT on 01/16/22 5575 Last Action: Last Taken Edited Atorvastatin Calcium (Atorvastatin Calcium) 40 Mg Tablet, 40 MG PO HS, (Reported) Entered as Reported by: AISHA LOTT on 01/16/221548 Last Action: Last Taken Edited Baclofen (Baclofen) 10 Mg Tablet, 10 MG PO HS, (Reported) Entered as Reported by: CAMILLE POLO on 01/03/231645 Last Action: New Order Carvedilol (Carvedilol) 3.125 Mg Tablet, 3.125 MG PO BID, (Reported) Entered as Reported by: CAMILLE POLO on 01/03/231645 Last Action: New Order Cholecalciferol (Vitamin D3) (Vitamin D3) 25 Mcg (1000 Unit) Capsule, 25 MCG PO DAILY, (Reported) Entered as Reported by: AISHA LOTT on 01/16/221548 Last Action: Last Taken Edited Diclofenac Sodium (Diclofenac Sodium) 50 Mg Tablet.dr, 50 MG PO BID, (Reported) Entered as Reported by: ANNA MONTEZ on 06/22/161006 Docusate Sodium (Stool Softener) 100 Mg Capsule, 100-200 MG PO DAILY, (Reported) Entered as Reported by: AISHA LOTT on 01/16/221548 Last Action: Last Taken Edited Duloxetine HCl (Duloxetine HCl) 30 Mg Capsule.dr, 30 MG PO HS, (Reported) Entered as Reported by: CAMILLE POLO on 01/03/231645 Last Action: New Order Hydrochlorothiazide (Hydrochlorothiazide) 25 Mg Tablet, 25 MG PO DAILY, (Reported) Entered as Reported by: CAMILLE POLO on 01/03/231645 Last Action: New Order Isosorbide Mononitrate (Isosorbide Mononitrate ER) 30 Mg Tab.er.24h, 30 MG PO HS, (Reported) Entered as Reported by: CAMILLE POLO on 01/03/231645 Last Action: New Order Losartan Potassium (Losartan Potassium) 100 Mg Tablet, 100 MG PO DAILY, (Reported) Entered as Reported by: CAMILLE POLO on 01/03/231645 Last Action: New Order Oxymetazoline HCl (Afrin) 0.05 % [place], 30 ML NS, (Reported) Entered as Reported by: CAMILLE POLO on 01/03/231645 Last Action: New Order Potassium Chloride (Potassium Chloride) 20 Meq Tablet.er, 20 MEQ PO DAILY, (Reported) Entered as Reported by: CAMILLE POLO on 01/03/23 1646 Last Action: New Order Review of Systems Review of Systems Constitutional: see HPI; No chills; dizziness; No fever; weakness EENTM: No nose congestion, No throat pain Respiratory: cough (Occasional); No short of breath Cardiovascular: No chest pain, No edema Gastrointestinal: nausea; No vomiting Genitourinary: no symptoms reported Musculoskeletal: muscle weakness Skin: no symptoms reported Psychiatric/Neurological: No Symptoms Reported Hematologic/Lymphatic: No Symptoms Reported All Other Systems Reviewed Negative Unless Noted: Yes Past Bolevhg-Zjomdd-Pgmfdw Hx Patient Social History Tobacco Use?: No Use of E-Cig and/or Vaping dev: No Substance use?: No Immunizations Up To Date First/Initial COVID19 Vaccinat: 2 SHOTS Second COVID19 Vaccination Jarvis: NONE Third COVID19 Vaccination Date: NONE Seasonal Allergies Seasonal Allergies: Yes Past Medical History Surgery/Hospitalization HX: HTN, OPEN HEART, RIGHT HIP REPLACEMENT, BOTH SHOULDER REPLACEMENTS, MELANOMA CANCER, Surgeries: Yes Cardiac, Orthopedic Respiratory: No Cardiac: Yes Hypertension Reproductive Disorders: No Sexually Transmitted Disease: No HIV/AIDS: No Musculoskeletal: Yes Arthritis, Chronic Back Pain Loss of Vision: Bilateral Hearing Impairment: Denies Cancer: Yes Melanoma Adverse Reaction/Blood Tranf: No (N/A) Physical Exam Vital Signs Vital Signs - First Documented 01/03/23 14:30 Temp 35.8 Pulse 58 Resp 16 B/P (MAP) 83/59 (67) Pulse Ox 98 O2 Delivery Room Air Capillary Refill : Less Than 3 Seconds Height, Weight, BMI Height: 5'10.00" Weight: 227lbs. 0.0oz. 102.879908sc; 25.00 BMI Method: General Appearance: No Apparent Distress, WD/WN HEENT: PERRL/EOMI, Pharynx Normal Neck: Non Tender, Supple Respiratory: Lungs Clear, Normal Breath Sounds Cardiovascular: Regular Rate, Rhythm, No Murmur Gastrointestinal: Non Tender, Soft Back: Normal Inspection, No CVA Tenderness, No Vertebral Tenderness Extremity: Normal Range of Motion, Non Tender Neurologic/Psychiatric: Alert, Oriented x3 Skin: Normal Color, Warm/Dry Progress/Results/Core Measures Suspected Sepsis SIRS Temperature: Pulse: 58 Respiratory Rate: 16 Laboratory Tests 01/03/23 14:53: White Blood Count 10.4 Blood Pressure 83 /59 Mean: 67 Laboratory Tests 01/03/23 14:53: Creatinine 1.22, Platelet Count 265, Total Bilirubin 1.0 Results/Orders Lab Results Laboratory Tests Test 01/03/23 14:53 01/03/23 16:43 Range/Units White Blood Count 10.4 4.3-11.0 10^3/uL Red Blood Count 4.11 L 4.30-5.52 10^6/uL Hemoglobin 13.9 13.3-17.7 g/dL Hematocrit 38 L 40-54 % Mean Corpuscular Volume 93 80-99 fL Mean Corpuscular Hemoglobin 34 25-34 pg Mean Corpuscular Hemoglobin Concent 36 32-36 g/dL Red Cell Distribution Width 12.3 10.0-14.5 % Platelet Count 265 130-400 10^3/uL Mean Platelet Volume 10.0 9.0-12.2 fL Immature Granulocyte % (Auto) 1 % Neutrophils (%) (Auto) 79 H 42-75 % Lymphocytes (%) (Auto) 12 12-44 % Monocytes (%) (Auto) 7 0-12 % Eosinophils (%) (Auto) 1 0-10 % Basophils (%) (Auto) 0 0-10 % Neutrophils # (Auto) 8.2 H 1.8-7.8 10^3/uL Lymphocytes # (Auto) 1.3 1.0-4.0 10^3/uL Monocytes # (Auto) 0.7 0.0-1.0 10^3/uL Eosinophils # (Auto) 0.1 0.0-0.3 10^3/uL Basophils # (Auto) 0.0 0.0-0.1 10^3/uL Immature Granulocyte # (Auto) 0.1 0.0-0.1 10^3/uL Sodium Level 112 *L 135-145 MMOL/L Potassium Level 4.4 3.6-5.0 MMOL/L Chloride Level 79 L 98-107 MMOL/L Carbon Dioxide Level 22 21-32 MMOL/L Anion Gap 11 5-14 MMOL/L Blood Urea Nitrogen 19 H 7-18 MG/DL Creatinine 1.22 0.60-1.30 MG/DL Estimat Glomerular Filtration Rate 60 BUN/Creatinine Ratio 16 Glucose Level 162 H 70-105 MG/DL Calcium Level 8.7 8.5-10.1 MG/DL Corrected Calcium 8.7 8.5-10.1 MG/DL Total Bilirubin 1.0 0.1-1.0 MG/DL Aspartate Amino Transf (AST/SGOT) 28 5-34 U/L Alanine Aminotransferase (ALT/SGPT) 29 0-55 U/L Alkaline Phosphatase 41 40-136 U/L Troponin I < 0.028 <0.028 NG/ML C-Reactive Protein High Sensitivity 0.11 0.00-0.50 MG/DL Total Protein 6.8 6.4-8.2 GM/DL Albumin 4.0 3.2-4.5 GM/DL Free Thyroxine < 0.40 L 0.70-1.48 NG/DL TSH Bent Testing 48.79 H 0.35-4.94 UIU/ML Urine Color YELLOW Urine Clarity CLEAR Urine pH 6.5 5-9 Urine Specific [place] 1.025 H 1.016-1.022 Urine Protein NEGATIVE NEGATIVE Urine Glucose (UA) TRACE H NEGATIVE Urine Ketones NEGATIVE NEGATIVE Urine Nitrite NEGATIVE NEGATIVE Urine Bilirubin NEGATIVE NEGATIVE Urine Urobilinogen 1.0 < = 1.0 MG/DL Urine Leukocyte Esterase 1+ H NEGATIVE Urine RBC (Auto) NEGATIVE NEGATIVE Urine RBC RARE /HPF Urine WBC NONE /HPF Urine Squamous Epithelial Cells NONE /HPF Urine Crystals NONE /LPF Urine Bacteria NEGATIVE /HPF Urine Casts NONE /LPF Urine Mucus NEGATIVE /LPF Urine Culture Indicated NO My Orders Orders - PATRIA JOEL MD Ekg Tracing (01/03/23 15:59) Cbc And Automated Diff (01/03/23 15:59) Comprehensive Metabolic Panel (01/03/23 15:59) Hs C Reactive Protein (01/03/23 15:59) Thyroid Analyzer (01/03/23 15:59) Troponin I Teena (01/03/23 15:59) Ua Culture If Indicated (01/03/23 15:59) Ct Head Wo (01/03/23 15:59) Ed Iv/Invasive Line Start (01/03/23 15:59) Ns Iv 500 Ml (Ns Iv 500 Ml) (01/03/23 16:00) Free T4 (Free Thyroxine) (01/03/23 14:53) Levothyroxine Injection (Levothyroxine I (01/03/23 17:46) Ns Iv 500 Ml (Ns Iv 500 Ml) (01/03/23 18:00) Medications Given in ED Current Medications Medications Dose Ordered Sig/Yahir Route Start Time Stop Time Status Last Admin Dose Admin Sodium Chloride 500 ml @ 0 mls/hr Q0M ONCE IV 01/03/23 16:00 01/03/23 16:01 DC 01/03/23 16:11 0 MLS/HR Vital Signs/I&O 01/03/23 01/03/23 14:30 17:39 Temp 35.8 35.8 Pulse 58 65 Resp 16 12 B/P (MAP) 83/59 (67) 126/72 (90) Pulse Ox 98 98 O2 Delivery Room Air Room Air Capillary Refill : Less Than 3 Seconds Blood Pressure Mean: 67 Progress Note : Progress Note Seen and evaluated. IV, labs including CBC, CMP, troponin and thyroid studies ordered. We will check UA and get EKG as well as CT head. Normal saline 500 mL bolus. Monitor patient. Differential diagnosis includes dehydration, electrolyte abnormality, UTI, intracranial injury, cardiac dysfunction, thyroid dysfunction 1703: CT head does not show any obvious intracranial hemorrhage on my interpretation. EKG as noted below. CBC shows normal white count hemoglobin with normal platelets without significant other abnormalities. CMP shows low sodium of 112 with normal potassium and low chloride at 79. Creatinine is normal with glucose slightly elevated at 162. LFTs are normal. Troponin is negative. CRP is negative. TSH is markedly high at 48.79 with free T4 pending. We are pending UA. Monitor patient. 1744: I did discuss the case with Dr. Liu. Free T4 is less than 0.4. Given the hypothyroidism, patient requires admission as well as for the hyponatremia and these may be related. We will initiate levothyroxine 75 mcg IV x1 now and initiate repeat dose of normal saline 500 mL bolus. Hold amlodipine and losartan tomorrow until Dr. Jones is able to see him but continue amlodipine. Patient is not sure why he is on amlodipine and apparently this was carryover from previous and Dr. Jones is evaluating for continuation. All of this was discussed with patient and family who agree. Admit, inpatient status. Patient and family agree with plan. Patient to be admitted to ICU. I did discuss the case with the eICU team. I have ordered consult for Dr. Jones, patient's primary medical billing coordinator for tomorrow. ECG Initial ECG Impression Date: Jan 03, 2023 Initial ECG Impression Time: 16:35 Initial ECG Rate: 62 Initial ECG Rhythm: Normal Sinus Comment Sinus rhythm with first-degree AV block and left axis deviation. No evidence of ST elevation HI. Does have interventricular conduction delay noted. Interpreted by me. Diagnostic Imaging Diagonstic Imaging: CT Plain Films/CT/US/NM/MRI: head Comments [facility], [place] NAME: MIGUEL PATHAK [facility] REC#: [id number] PT STATUS: REG ER : 1940 PHYSICIAN: PATRIA JOEL MD ADMIT DATE: 01/03/23/ER Signed Date of Exam:01/03/23 CT HEAD WO PROCEDURE: CT head without contrast. TECHNIQUE: Multiple contiguous axial images were obtained through the brain without the use of intravenous contrast. Auto Exposure Controls were utilized during the CT exam to meet ALARA standards for radiation dose reduction. INDICATION: Fall, weakness and dizziness. COMPARISON: None. FINDINGS: There is no intracranial hemorrhage. There is no acute extra-axial fluid collection. No focal or generalized cerebral edema. There is mild cerebral cortical atrophy and periventricular white matter hypodensities, likely small vessel sequelae. There are heavy intracranial carotid atherosclerotic vascular calcifications as well as calcifications of the intradural vertebral artery. No hydrocephalus. No acute finding. IMPRESSION: There is some mild atrophy and moderate white matter disease as well as intracranial carotid atherosclerotic vascular calcifications; however, no hemorrhage, edema, mass effect or acute appearing abnormality. Dictated by: Dictated on workstation # [id number] Dict: 01/03/23 1620 Trans: 01/03/23 1631 [facility] [id number] Interpreted by: CALVIN BOOTH Electronically signed by: CALVIN BOOTH 01/03/23 1631 Departure Communication (Admissions) Time/Spoke to Admitting Phy: 17:44 Impression Primary Impression: Hyponatremia Additional Impression: Hypothyroidism Qualified Codes: E03.9 - Hypothyroidism, unspecified Disposition: 09 ADMITTED INPATIENT Condition: Stable Admissions Decision to Admit Reason: Admit from ER (General) Decision to Admit/Date: Jan 03, 2023 Time/Decision to Admit Time: 17:44 Departure-Patient Inst. Referrals: LONI VIRK MD (PCP) Primary Care Physician PATRIA JOEL MD Jan 03, 2023 16:01
[2023-01-03 16:07] LABS: BASOPHILS % (AUTO) 0 % (0-10); EOSINOPHILS # (AUTO) 0.1 10^3/uL (0.0-0.3); EOSINOPHILS % (AUTO) 1 % (0-10); HEMATOCRIT 38 % (40-54); HEMOGLOBIN 13.9 g/dL (13.3-17.7); LYMPHOCYTES # (AUTO) 1.3 10^3/uL (1.0-4.0); LYMPHOCYTES % (AUTO) 12 % (12-44); MEAN CORPUSCULAR HEMOGLOBIN 34 pg (25-34); MEAN CORPUSCULAR HGB CONC 36 g/dL (32-36); MEAN CORPUSCULAR VOLUME 93 fL (80-99); MONOCYTES # (AUTO) 0.7 10^3/uL (0.0-1.0); MONOCYTES % (AUTO) 7 % (0-12); NEUTROPHILS # (AUTO) 8.2 10^3/uL (1.8-7.8); NEUTROPHILS % (AUTO) 79 % (42-75); PLATELET COUNT 265 10^3/uL (130-400); WHITE BLOOD COUNT 10.4 10^3/uL (4.3-11.0)
[2023-01-03 16:08] LABS: CHLORIDE 79 MMOL/L (98-107); POTASSIUM 4.4 MMOL/L (3.6-5.0)
[2023-01-03 16:09] LABS: CALCIUM 8.7 MG/DL (8.5-10.1)
[2023-01-03 16:10] LABS: GLUCOSE 162 MG/DL (70-105); SODIUM 112 MMOL/L (135-145)
[2023-01-03 16:11] LABS: TOTAL PROTEIN 6.8 GM/DL (6.4-8.2)
[2023-01-03 16:12] LABS: CARBON DIOXIDE 22 MMOL/L (21-32)
[2023-01-03 16:14] LABS: ALKALINE PHOSPHATASE 41 U/L (40-136); CREATININE SERUM 1.22 MG/DL (0.60-1.30); GFR ESTIMATED 60
[2023-01-03 16:15] LABS: BUN/CREATININE RATIO 16
[2023-01-03 16:17] LABS: ALANINE AMINOTRANSFERASE 29 U/L (0-55)
--- NOTE | 2023-01-03 16:30 | Diagnostic Imaging Report ---
PROCEDURE: CT head without contrast. TECHNIQUE: Multiple contiguous axial images were obtained through the brain without the use of intravenous contrast. Auto Exposure Controls were utilized during the CT exam to meet ALARA standards for radiation dose reduction. INDICATION: Fall, weakness and dizziness. COMPARISON: None. FINDINGS: There is no intracranial hemorrhage. There is no acute extra-axial fluid collection. No focal or generalized cerebral edema. There is mild cerebral cortical atrophy and periventricular white matter hypodensities, likely small vessel sequelae. There are heavy intracranial carotid atherosclerotic vascular calcifications as well as calcifications of the intradural vertebral artery. No hydrocephalus. No acute finding. IMPRESSION: There is some mild atrophy and moderate white matter disease as well as intracranial carotid atherosclerotic vascular calcifications; however, no hemorrhage, edema, mass effect or acute appearing abnormality. Dictated by: Dictated on workstation # [id number]
[2023-01-03 16:37] LABS: TSH (THYROID ANALYZER) 48.79 UIU/ML (0.35-4.94)
[2023-01-03] MEDS ORDERED: ISOS30TA82 PO (16:46)
[2023-01-03] MEDS ORDERED: CARV3.122 PO (16:46)
[2023-01-03] MEDS ORDERED: POTA-330 PO (16:46)
[2023-01-03] MEDS ORDERED: AMIO200T65 PO (16:46)
[2023-01-03] MEDS ORDERED: OXYM30SP25 NSEACH (16:46)
[2023-01-03] MEDS ORDERED: LOSA100T58 PO (16:46)
[2023-01-03] MEDS ORDERED: DULO30CA49 PO (16:46)
[2023-01-03] MEDS ORDERED: HYDR25TA4 PO (16:46)
[2023-01-03] MEDS ORDERED: BACL10TA PO (16:46)
[2023-01-03] MEDS ORDERED: AMLO-251 PO (16:46)
[2023-01-03 17:15] LABS: COLOR,URINE YELLOW
[2023-01-03 17:16] LABS: BACTERIA,URINE NEGATIVE /HPF; BILIRUBIN,URINE NEGATIVE (NEGATIVE); CLARITY,URINE CLEAR; GLUCOSE, URINE (UA) TRACE (NEGATIVE); KETONES,URINE NEGATIVE (NEGATIVE); LEUKOCYTE ESTERASE ,URINE 1+ (NEGATIVE); NITRITE,URINE NEGATIVE (NEGATIVE); PH,URINE 6.5 (5-9); PROTEIN,URINE NEGATIVE (NEGATIVE); RBC,URINE RARE /HPF
[2023-01-03 17:20] LABS: FREE T4 (FREE THYROXINE) < 0.40 NG/DL (0.70-1.48)
[2023-01-03] MEDS ORDERED: LEVOTHYROXINE 100 MCG VIAL IV STA (17:46)
[2023-01-03] MEDS ORDERED: NS IV 1000 ML 1,000 ML ONE (19:38)
--- NOTE | 2023-01-03 20:40 | Tele-ICU Progress Note ---
Progress Note Tele ICU Brief progress note 82 yo man brought to ED with son who reports not eating or drinking, dizzy and weak several days, decreased urine output. BP variable. Is on multiple meds at home as reported: amiodarone, amlodipine, ASA, atorvastatin, baclofen, carvedilol, Vit D3, dicofenac, duloxetine, HCTZ, irosorbide mononitrate, losartan, KCl, Afrin nasal spray. Per ED records- PMHx: CABG, R hip and bilateral shoulder replacements, melanoma Labs: Na 112 K 4.4 Cl 79 Bicarb 22 Gluc 162 BUN 19 Cr 1.2 Ca 8.7 nl LFTs CBC wbcs 10,400 P79 L 12 Nance 7 Eos 1 Hgb 13.9 Plts 265,000 TSH 48.79 Free thyroxine <0.028 UA -negative dipstick and micro EKG sinus , 1* AVB , L axis deviation, intraventricular conduction delay--( note: possibly has chest lead misplacement ) Per Video pt is resting, HR 62 NSR, 97% sat on RA BP 107/78 Per nursing - pt is reported to be alert and oriented. A/P:1) Severe hypothyroidism- ED has initiated levothyroxine 75 mg IV- - this may be drug- related to amiodarone . All oral home meds on hold at this time. Will check random cortisol on blood in lab also. Rx already written for oral thyroxine in AM. 2) Hyponatremia with hypotension-- also may be drug related to diuretic use and poor oral replacement, dehydration, and use of multiple anti hypertensive drugs.ED initiated NS fluid bolus with + response in BP. Orders to continue saline replacement at this time. Lab orders for AM already placed. D/W nursing . Focused Exam Height, Weight, BMI Height: 5'10.00" Weight: 227lbs. 0.0oz. 102.091452ao; 25.00 BMI Method: JOSE C OLSON DO Jan 03, 2023 20:40
[2023-01-03] MEDS: NS IV 1000 ML 1,000 ML IV SCH (21:43)
[2023-01-03] MEDS ORDERED: NS IV 500 ML 500 ML IV PRN (21:45)
[2023-01-04] MEDS: NS IV 1000 ML 1,000 ML IV SCH ×2 (02:24→09:15)
[2023-01-04 04:34] LABS: BASOPHILS % (AUTO) 0 % (0-10); EOSINOPHILS # (AUTO) 0.1 10^3/uL (0.0-0.3); EOSINOPHILS % (AUTO) 1 % (0-10); HEMATOCRIT 39 % (40-54); HEMOGLOBIN 14.2 g/dL (13.3-17.7); LYMPHOCYTES # (AUTO) 1.4 10^3/uL (1.0-4.0); LYMPHOCYTES % (AUTO) 14 % (12-44); MEAN CORPUSCULAR HEMOGLOBIN 34 pg (25-34); MEAN CORPUSCULAR HGB CONC 37 g/dL (32-36); MEAN CORPUSCULAR VOLUME 92 fL (80-99); MEAN PLATELET VOLUME 9.6 fL (9.0-12.2); MONOCYTES # (AUTO) 0.9 10^3/uL (0.0-1.0); MONOCYTES % (AUTO) 9 % (0-12); NEUTROPHILS # (AUTO) 7.3 10^3/uL (1.8-7.8); NEUTROPHILS % (AUTO) 74 % (42-75); PLATELET COUNT 222 10^3/uL (130-400); WHITE BLOOD COUNT 9.8 10^3/uL (4.3-11.0)
[2023-01-04 04:41] LABS: ALBUMIN 3.7 GM/DL (3.2-4.5); POTASSIUM 4.1 MMOL/L (3.6-5.0)
[2023-01-04 04:42] LABS: CALCIUM 8.3 MG/DL (8.5-10.1)
[2023-01-04 04:43] LABS: TOTAL PROTEIN 6.3 GM/DL (6.4-8.2)
[2023-01-04 04:45] LABS: BILIRUBIN,TOTAL 0.9 MG/DL (0.1-1.0)
[2023-01-04 04:47] LABS: PHOSPHORUS 2.7 MG/DL (2.3-4.7)
[2023-01-04 04:50] LABS: MAGNESIUM 1.6 MG/DL (1.6-2.4)
[2023-01-04] MEDS: MAGNESIUM 1 GM/100 ML IVPB 100 ML IV SCH ×5 (05:09→08:23)
[2023-01-04] MEDS: POTASSIUM CL 10MEQ/50ML IVPB 50 ML IV SCH (05:09)
[2023-01-04] MEDS: POTASSIUM CHLORIDE 20 MEQ TABLET PO SCH (05:10)
[2023-01-04] MEDS: LEVOTHYROXINE 100 MCG TABLET PO SCH (05:33)
[2023-01-04] MEDS ORDERED: ISOSORBIDE MONONITRATE 30 MG TABLET PO SCH (09:00)
[2023-01-04] MEDS ORDERED: amLODIPine 10 MG TABLET PO SCH (09:00)
--- NOTE | 2023-01-04 09:41 | Tele-ICU Progress Note ---
Subjective Date Seen by a Provider: Jan 04, 2023 Time Seen by a Provider: 09:35 Subjective/Events-last exam (Tele-ICU Physician , Progress Note ) Service provided via interactive audio and video telecommunications E-CARE system to a patient admitted to ICU bed in [facility]. Patient is seen today due to persistent need of ICU care I am remotely monitoring this patient from another state. I am unable to do the bedside exam, and history/physical and pertinent information is taken from other notes in the computer and bedside staff. Available chart/ vitals / labs / Images reviewed Video assessment done using teleICU camera, rest of exam as per RN Discussed with RN Events overnight : 82 yo M admitted for dizziness, fell hit head [address] head just shows cerebral atrophy, calcifications in carotid and cerebral arteries Na 112 and today 116, on normal saline @ 150, to be checked again at noon TSH 48 on thyroid replacement 100 mcg/d Sepsis Event Evaluation Height, Weight, BMI Height: 5'10.00" Weight: 227lbs. 0.0oz. 102.672609bj; 27.01 BMI Method: Exam Exam Patient acknowledged, consented, and participated in this virtual visit which was conducted using real time audio/video Vital Signs Date Time Temp Pulse Resp B/P (MAP) Pulse Ox O2 Delivery O2 Flow Rate FiO2 01/04/23 09:00 59 13 121/67 (85) 98 Room Air 01/04/23 08:00 98 Room Air 01/04/23 08:00 62 29 98/56 (70) 98 Room Air 01/04/23 07:59 35.9 01/04/23 07:28 61 01/04/23 07:00 58 11 120/66 (84) 97 Room Air 01/04/23 06:00 60 10 123/72 (111) 95 Room Air 01/04/23 05:00 65 27 139/73 (107) 96 Room Air 01/04/23 04:00 98 Room Air 01/04/23 04:00 59 12 140/83 (130) 96 Room Air 01/04/23 03:00 61 10 132/66 (105) 96 Room Air 01/04/23 02:00 68 30 134/76 (101) 97 Room Air 01/04/23 01:00 79 01/04/23 01:00 79 26 102/67 (82) 93 Room Air 01/04/23 00:00 36.3 01/04/23 00:00 57 17 117/104 (106) 98 Room Air 01/03/23 23:58 98 Room Air 01/03/23 23:00 60 14 120/72 (89) 98 Room Air 01/03/23 22:00 62 19 114/67 (83) 97 Room Air 01/03/23 21:00 62 12 129/72 (99) 98 Room Air 01/03/23 20:00 61 107/78 (92) 97 Room Air 01/03/23 20:00 98 Room Air 01/03/23 19:45 64 8 126/67 (85) 98 Room Air 01/03/23 19:30 65 10 114/83 (97) 97 Room Air 01/03/23 19:15 36.1 66 14 141/74 (96) 98 Room Air 01/03/23 19:04 66 01/03/23 19:02 67 130/84 (128) 97 Room Air 01/03/23 17:39 35.8 65 12 126/72 (90) 98 Room Air 01/03/23 14:30 35.8 58 16 83/59 (67) 98 Room Air I & O 01/04/23 06:59 Intake Total 1107.5 ml Output Total 1900 ml Balance -792.5 ml Height & Weight Height: 5'10.00" Weight: 227lbs. 0.0oz. 102.722982iv; 27.01 BMI Method: General Appearance: No Apparent Distress, WD/WN HEENT: PERRL/EOMI, Pharynx Normal Neck: Non Tender, Supple Respiratory: Lungs Clear, Normal Breath Sounds Cardiovascular: Regular Rate, Rhythm, No Murmur Capillary Refill: Less Than 3 Seconds Gastrointestinal: normal bowel sounds, non tender Extremity: Normal Range of Motion, Non Tender, No Pedal Edema Neurologic/Psychiatric: Alert, Oriented x3 Skin: Normal Color, Warm/Dry Results Lab Laboratory Tests 01/03/23 14:53 01/04/23 04:07 Assessment/Plan Assessment/Plan to be seen by PT today, BP has been ok Na slowly rising on 150 mL/h on NS, will repeat lab noon today Critical Care: Critically Ill Patient Time spent with patient (mins): 25 ZO ESPINAL MD Jan 04, 2023 09:41
[2023-01-04] MEDS: SODIUM CHLORIDE 3% IV SCH (11:44)
[2023-01-04] MEDS ORDERED: CHOL20002 PO (11:55)
--- NOTE | 2023-01-04 12:37 | History & Physicial-Cardiolgy ---
HPI-Cardiology Cardiology Consultation: Date of Consultation 01/04/23 Date of Admission 01/03/2023 Attending Physician Junior Richardson MD Admitting Physician Admitting Physician: Sean Liu MD Attending Physician: Lani Gauthier MD Consulting Physician BELKIS PEDERSEN MD HPI: Time Seen by a Provider: 12:33 Chief Complaint: Patient admitted with complaints of severe weakness tiredness, falls, low blood pressure. 82-year-old white male who was admitted with above complaints. Was found to have severe hyponatremia with sodium 114. Also found to have significant hypothyroidism without previous history of this problem. Patient has a history of CAD, CABG in January of last year. Patient prior has episodes of hyponatremia. Patient has been taking amiodarone, he does not know why, possibly after recent bypass surgery Review of Systems-Cardiology Review of Systems Constitutional: lightheadedness, malaise, tiredness Eyes: no symptoms reported Ears/Nose/Throat: no symptoms reported Respiratory: no symptoms reported Cardiovascular: lightheadedness Gastrointestinal: no symptoms reported Musculoskeletal: no symptoms reported Skin: no symptoms reported Psychiatric/Neurological: weakness Hematologic: no symptoms reported All Other Systems Reviewed Negative Unless Noted: Yes UAS-Xatluw-Hrrxde Hx Immunizations Up To Date Date of Influenza Vaccine: Nov 25, 2015 Past Medical History PMH As described under Assessment. Family Medical History Family Medical History: He denies any family h/o CAD. He reports his sons bot have HTN. Allergies and Home Medications Allergies Coded Allergies: erythromycin base (Verified Allergy, Mild, 12/09/22) Patient Home Medication List Home Medication List Reviewed: Yes Amiodarone HCl (Amiodarone HCl) 200 Mg Tablet, 200 MG PO HS, (Reported) Entered as Reported by: CAMILLE POLO on 01/03/231645 Last Action: Reviewed Amlodipine Besylate (Amlodipine Besylate) 10 Mg Tablet, 10 MG PO HS, (Reported) Entered as Reported by: CAMILLE POLO on 01/03/231645 Last Action: Reviewed Aspirin (Aspirin EC) 81 Mg Tablet.dr, 81 MG PO DAILY, (Reported) Entered as Reported by: AISHA LOTT on 01/16/22 495 Last Action: Reviewed Atorvastatin Calcium (Atorvastatin Calcium) 40 Mg Tablet, 40 MG PO HS, (Reported) Entered as Reported by: AISHA LOTT on 01/16/221548 Last Action: Reviewed Baclofen (Baclofen) 10 Mg Tablet, 10 MG PO HS, (Reported) Entered as Reported by: CAMILLE POLO on 01/03/231645 Last Action: Reviewed Carvedilol (Carvedilol) 3.125 Mg Tablet, 3.125 MG PO BID, (Reported) Entered as Reported by: CAMILLE POLO on 01/03/231645 Last Action: Reviewed Cholecalciferol (Vitamin D3) (Vitamin D3) 50 Mcg (2000 Unit) Capsule, 50 MCG PO DAILY, (Reported) Entered as Reported by: AISHA LOTT on 01/04/231154 Last Action: Reviewed Docusate Sodium (Stool Softener) 100 Mg Capsule, 100 MG PO BID, (Reported) Entered as Reported by: AISHA LOTT on 01/16/221548 Last Action: Reviewed Hydrochlorothiazide (Hydrochlorothiazide) 25 Mg Tablet, 25 MG PO DAILY, (Reported) Entered as Reported by: CAMILLE POLO on 01/03/231645 Last Action: Reviewed Isosorbide Mononitrate (Isosorbide Mononitrate ER) 30 Mg Tab.er.24h, 30 MG PO HS, (Reported) Entered as Reported by: CAMILLE POLO on 01/03/231645 Last Action: Reviewed Losartan Potassium (Losartan Potassium) 100 Mg Tablet, 100 MG PO DAILY, (Reported) Entered as Reported by: CAMILLE POLO on 01/03/231645 Last Action: Reviewed Oxymetazoline HCl (Afrin) 0.05 % Devol, 1-2 SPRAYS NSEACH TID PRN for CONGESTION, (Reported) Entered as Reported by: CAMILLE POLO on 01/03/231645 Last Action: Reviewed Potassium Chloride (Potassium Chloride) 20 Meq Tablet.er, 20 MEQ PO BID, (Reported) Entered as Reported by: CAMILLE POLO on 01/03/231645 Last Action: Reviewed Discontinued Medications Cholecalciferol (Vitamin D3) (Vitamin D3) 25 Mcg (1000 Unit) Capsule, 25 MCG PO DAILY, (Reported) Discontinued Reason: Prescription changed Entered as Reported by: AISHA LOTT on 01/16/221548 Last Action: Last Taken Edited Diclofenac Sodium (Diclofenac Sodium) 50 Mg Tablet.dr, 50 MG PO BID, (Reported) Discontinued Reason: No Longer Taking Entered as Reported by: ANNA MONTEZ on 06/22/16 1007 Last Action: Discontinued Physical Exam-Cardiology Physical Exam Vital Signs/I&O 01/04/23 01/04/23 01/04/23 01/04/23 01:00 01:00 02:00 03:00 Pulse 79 79 68 61 Resp 26 30 10 B/P (MAP) 102/67 (82) 134/76 (101) 132/66 (105) Pulse Ox 93 97 96 O2 Delivery Room Air Room Air Room Air 01/04/23 01/04/23 01/04/23 01/04/23 04:00 04:00 05:00 06:00 Pulse 59 65 60 Resp 12 27 10 B/P (MAP) 140/83 (130) 139/73 (107) 123/72 (111) Pulse Ox 96 98 96 95 O2 Delivery Room Air Room Air Room Air Room Air 01/04/23 01/04/23 01/04/23 01/04/23 07:00 07:28 07:59 08:00 Temp 35.9 Pulse 58 61 62 Resp 11 29 B/P (MAP) 120/66 (84) 98/56 (70) Pulse Ox 97 98 O2 Delivery Room Air Room Air 01/04/23 01/04/23 01/04/23 01/04/23 08:00 09:00 10:00 11:00 Pulse 59 59 62 Resp 13 11 25 B/P (MAP) 121/67 (85) 121/65 (83) Pulse Ox 98 98 98 98 O2 Delivery Room Air Room Air Room Air Room Air 01/04/23 01/04/23 01/04/23 11:49 12:00 12:33 Temp 35.9 Pulse 62 Resp 26 B/P (MAP) 131/72 (91) Pulse Ox 98 97 O2 Delivery Room Air Room Air 01/03/23 23:59 Intake Total 1057.5 ml Output Total 450 ml Balance 607.5 ml Capillary Refill : Less Than 3 Seconds Constitutional: appears stated age, AAO x 3 HEENT: PERRL, normal ENT inspection Neck: non-tender, supple Respiratory: chest expansion is symmetric, lungs clear to auscultation Cardiovascular: regular rate-rhythm, S1 and S2, systolic murmur Gastrointestinal: soft, round Rectal: deferred Extremities: normal range of motion, non-tender, no lower extremity edema bilateral Neurologic/Psychiatric: no motor/sensory deficits, alert, normal mood/affect, oriented x 3 Skin: normal color, warm/dry Lymphatic: no adenopathy Data Review Labs Laboratory Tests 01/03/23 14:53: White Blood Count 10.4, Red Blood Count 4.11L, Hemoglobin 13.9, Hematocrit 38L, Mean Corpuscular Volume 93, Mean Corpuscular Hemoglobin 34, Mean Corpuscular Hemoglobin Concent 36, Red Cell Distribution Width 12.3, Platelet Count 265, Mean Platelet Volume 10.0, Immature Granulocyte % (Auto) 1, Neutrophils (%) (Auto) 79H, Lymphocytes (%) (Auto) 12, Monocytes (%) (Auto) 7, Eosinophils (%) (Auto) 1, Basophils (%) (Auto) 0, Neutrophils # (Auto) 8.2H, Lymphocytes # (Auto) 1.3, Monocytes # (Auto) 0.7, Eosinophils # (Auto) 0.1, Basophils # (Auto) 0.0, Immature Granulocyte # (Auto) 0.1, Sodium Level 112*L, Potassium Level 4.4, Chloride Level 79L, Carbon Dioxide Level 22, Anion Gap 11, Blood Urea Nitrogen 19H, Creatinine 1.22, Estimat Glomerular Filtration Rate 60, BUN/Creatinine Ratio 16, Glucose Level 162H, Calcium Level 8.7, Corrected Calcium 8.7, Total Bilirubin 1.0, Aspartate Amino Transf (AST/SGOT) 28, Alanine Aminotransferase (ALT/SGPT) 29, Alkaline Phosphatase 41, Troponin I < 0.028, C-Reactive Protein High Sensitivity 0.11, Total Protein 6.8, Albumin 4.0, Free Thyroxine < 0.40L, TSH [place] Testing 48.79H 01/03/23 16:43: Urine Color YELLOW, Urine Clarity CLEAR, Urine pH 6.5, Urine Specific [place] 1.025H, Urine Protein NEGATIVE, Urine Glucose (UA) TRACEH, Urine Ketones NEGATIVE, Urine Nitrite NEGATIVE, Urine Bilirubin NEGATIVE, Urine Urobilinogen 1.0, Urine Leukocyte Esterase 1+H, Urine RBC (Auto) NEGATIVE, Urine RBC RARE, Urine WBC NONE, Urine Squamous Epithelial Cells NONE, Urine Crystals NONE, Urine Bacteria NEGATIVE, Urine Casts NONE, Urine Mucus NEGATIVE, Urine Culture Indicated NO 01/04/23 04:07: White Blood Count 9.8, Red Blood Count 4.22L, Hemoglobin 14.2, Hematocrit 39L, Mean Corpuscular Volume 92, Mean Corpuscular Hemoglobin 34, Mean Corpuscular Hemoglobin Concent 37H, Red Cell Distribution Width 12.0, Platelet Count 222, Mean Platelet Volume 9.6, Immature Granulocyte % (Auto) 1, Neutrophils (%) (Aut o) 74, Lymphocytes (%) (Auto) 14, Monocytes (%) (Auto) 9, Eosinophils (%) (Auto) 1, Basophils (%) (Auto) 0, Neutrophils # (Auto) 7.3, Lymphocytes # (Auto) 1.4, Monocytes # (Auto) 0.9, Eosinophils # (Auto) 0.1, Basophils # (Auto) 0.0, Immature Granulocyte # (Auto) 0.1, Sodium Level 116*L, Potassium Level 4.1, Chloride Level 83L, Carbon Dioxide Level 23, Anion Gap 10, Blood Urea Nitrogen 15, Creatinine 1.00, Estimat Glomerular Filtration Rate 76, BUN/Creatinine Ratio 15, Glucose Level 88, Calcium Level 8.3L, Corrected Calcium 8.5, Total Bilirubin 0.9, Aspartate Amino Transf (AST/SGOT) 29, Alanine Aminotransferase (ALT/SGPT) 28, Alkaline Phosphatase 41, Total Protein 6.3L, Albumin 3.7, Phosphorus Level 2.7, Magnesium Level 1.6 01/04/23 09:52: Sodium Level 114*L ECG Impression ECG Initial ECG Impression Date: Jan 04, 2023 Comment Normal sinus rhythm, left anterior hemiblock, right bundle branch block, nonspecific ST changes EKG : EKG Time: 12:45 A/P-Cardiology Assessment/Admission Diagnosis Generalized weakness. Hyponatremia. Hypothyroidism. CAD. Status post CABG. Status post amiodarone therapy. History of hypertension Admission Status: Inpatient Order (span 2 midnights) Reason for Inpatient Admission: Multiple medical problems requiring stay over 2 midnights Plan Discontinue amiodarone. We will start Synthroid. Fluid restriction, patient is presently on 3% sodium chloride. We will decrease the dose of amlodipine, continue isosorbide, aspirin, statin BELKIS PEDERSEN MD Jan 04, 2023 12:36
--- NOTE | 2023-01-04 13:43 | Physical Therapy Evaluation ---
PT Evaluation-General Medical Diagnosis Admission Date Jan 03, 2023 at 19:00 Medical Diagnosis: hyponatremia Onset Date: Jan 03, 2023 Therapy Diagnosis Therapy Diagnosis: generalized weakness/debility Height/Weight Height (Feet): 5 Height (Inches): 10.00 Weight (Pounds): 227 Weight (Ounces): 0.0 Precautions Precautions/Isolations: Fall Prevention, Standard Precautions Referral Physician: Disha Reason for Referral: Evaluation/Treatment Medical History Pertinent Medical History: Arthritis, HTN Current History ER secondary to dizziness and weakness (fall 3 weeks ago) Reviewed History: Yes Social History Home: Single Level Current Living Status: Alone Prior Prior Level of Function SCALE: Activities may be completed with or without assistive devices. 0-Tyhzubwobf-dlcbvgs completes the activity by him/herself with no assistance from a helper. 5-Set-up or Clean-up Assistance-helper sets up or cleans up; patient completes activity. [place] assists only prior to or following the activity. 4-Supervision or Touching Assistance-helper provides verbal cues and/or touching/steadying and/or contact guard assistance as patient completes activity. Assistance may be provided throughout the activity or intermittently. 3-Partial/Moderate Assistance-helper does LESS THAN HALF the effort. [place] lifts, holds or supports trunk or limbs, but provides less than half the effort. 2-Substantial/Maximal Assistance-helper does MORE THAN HALF the effort. [place] lifts or holds trunk or limbs and provides more than half the effort. 2-Symnhtsxs-chsomw does ALL the effort. Patient does none of the effort to complete the activity. Or, the assistance of 2 or more helpers is required for the patient to complete the activity. If activity was not attempted, code reason: 7-Patient Refused. 9-Not Applicable-not attempted and the patient did not perform the activity before the current illness, exacerbation or injury. 10-Not Attempted due to Environmental Limitations-(lack of equipment, weather restraints, etc.). 88-Not Attempted due to Medical Conditions or Safety Concerns. Bed Mobility: 6 Transfers (B,C,W/C): 6 Gait: 6 Indoor Mobility (Ambulation): Independent Prior Devices Use: Walker PT Evaluation-Current Subjective Patient agrees to therapy. Objective Patient Orientation: Person, Place, Time, Situation ROM/Strength ROM Lower Extremities bilateral LE WFL Strength Lower Extremities 3+/5 grossly bilateral LE Integumentary/Posture Bladder Incontinence: Yes Posture slightly kyphotic Neuromuscular (Tone, Coordination, Reflexes) diminished coordination due to weakness Transfers Lying to Sitting/Side of Bed(Q: 3 Sit to Stand (QC): 3 Chair/Ign-kr-Zchxt Xfer(QC): 3 Gait Mode of Locomotion: Walk Anticipated Mode of Locomotion: Walk Walk 10 feet (QC): 3 Walk 50 ft with 2 Turns(QC): 88 Distance: 15' Gait Assistive Device: FWW Comments/Gait Description slightly unsteady due to weakness Balance Sitting Static: Fair Sitting Dynamic: Fair Standing Static: Fair Standing Dynamic: Fair Assessment/Needs Patient will benefit from skilled PT to address functional strength and mobility to improve current LOF to safely return to home at maximum LOF. Patient cur rently require minimal to CGA for safety. Rehab Potential: Fair PT Machine Wedger Goals Machine Wedger Goals PT Senior Living Goals Time Frame: Jan 16, 2023 Roll Left & Right (QC): 6 Sit to Lying (QC): 6 Lying-Sitting on Side/Bed(QC): 6 Sit to Stand (QC): 6 Chair/Poo-lj-Uxcxa Xfer(QC): 6 Toilet Transfer (QC): 6 Walk 10 feet (QC): 5 Walk 50ft with 2 Turns (QC): 5 Walk 150 ft (QC): 5 PT Plan Problem List Problem List: Activity Tolerance, Functional Strength, Safety, Balance, Gait, Transfer, Bed Mobility Treatment/Plan Treatment Plan: Continue Plan of Care Treatment Plan: Bed Mobility, Education, Functional Activity Lidya, Functional Strength, Gait, Safety, Therapeutic Exercise, Transfers Treatment Duration: Jan 16, 2023 Frequency: 6 times per week Estimated Hrs Per Day: .25 hour per day Patient and/or Family Agrees t: Yes Time Time In: 1250 Time Out: 1300 DATE: Jan 04, 2023 Total Billed Treatment Time: 10 Total Billed Treatment 1 visit EVModC 10 min MARGOT KELLEY PT Jan 04, 2023 13:43
--- NOTE | 2023-01-04 14:02 | Occupational Therapy Eval ---
OT Evaluation-General/PLF Medical Diagnosis Admission Date Jan 03, 2023 at 19:00 Medical Diagnosis: hyponatremia Onset Date: Jan 03, 2023 Therapy Diagnosis Therapy Diagnosis: weakness Height/Weight Height (Feet): 5 Height (Inches): 10.00 Weight (Pounds): 227 Weight (Ounces): 0.0 Precautions Precautions/Isolations: Fall Prevention, Standard Precautions Referral Physician: Disha Referral Reason: Evaluation/Treatment Medical History Pertinent Medical History: Arthritis, HTN Additional Medical History Patient admitted with complaints of severe weakness tiredness, falls, low blood pressure. 82-year-old white male who was admitted with above complaints. Was found to have severe hyponatremia with sodium 114. Also found to have significant hypothyroidism without previous history of this problem. Patient has a history of CAD, CABG in January of last year. Patient prior has episodes of hyponatremia. Patient has been taking amiodarone, he does not know why, possibly after recent bypass surgery Social History Home: Single Level Current Living Status: Alone ADL-Prior Level of Function SCALE: Activities may be completed with or without assistive devices. 9-Wvcuajgvtl-ocljdmt completes the activity by him/herself with no assistance from a helper. 5-Set-up or Clean-up Assistance-helper sets up or cleans up; patient completes a ctivity. [place] assists only prior to or following the activity. 4-Supervision or Touching Assistance-helper provides verbal cues and/or touching/steadying and/or contact guard assistance as patient completes activity. Assistance may be provided throughout the activity or intermittently. 3-Partial/Moderate Assistance-helper does LESS THAN HALF the effort. [place] lifts, holds or supports trunk or limbs, but provides less than half the effort. 2-Substantial/Maximal Assistance-helper does MORE THAN HALF the effort. [place] lifts or holds trunk or limbs and provides more than half the effort. 2-Jezdulyah-jglgxe does ALL the effort. Patient does none of the effort to complete the activity. Or, the assistance of 2 or more helpers is required for the patient to complete the activity. If activity was not attempted, code reason: 7-Patient Refused. 9-Not Applicable-not attempted and the patient did not perform the activity before the current illness, exacerbation or injury. 10-Not Attempted due to Environmental Limitations-(lack of equipment, weather restraints, etc.). 88-Not Attempted due to Medical Conditions or Safety Concerns. Self Care: Independent Functional Cognition: Independent Drive Self: Yes OT Current Status Subjective Agreeable to participate Mental Status/Objective Patient Orientation: Person, Place, Time, Situation Attachments: IV, Telemetry Current Glasses/Contacts: Yes Upper Extremity ROM BuE ROM WFLS Upper Extremity Coordination WFLs, GMC slight impaired d/t weakness,and c/o dizziness ADL-Treatment ADL-Current Required encouragement to perform for evaluation, handed socks to therapist and requested assistance. OT informed patient the evaluation is on his ability to perform these tasks Eating (QC): 6 Oral Hygiene (QC): 5 Shower/Bathe Self (QC): 7 Upper Body Dressing (QC): 4 Lower Body Dressing (QC): 3 On/Off Footwear (QC): 4 Toileting Hygiene (QC): 3 Education OT Patient Education: Correct positioning, Exercise program, Modified ADL techniques, Progress toward Goal/Update tx plan, Purpose of tx/functional activities, Reviewed precautions, Rehab process, Safety issues, Transfer techniques, Use of adapted equipment Teaching Recipient: Patient Teaching Methods: Demonstration, Discussion Response to Teaching: Reinforcement Needed OT Sales Contract Administrator Goals [facility] Goals Eating (QC): 6 Oral Hygiene (QC): 6 Toileting Hygiene (QC): 6 Shower/Bathe Self (QC): 6 Upper Body Dressing (QC): 6 Lower Body Dressing (QC): 6 On/Off Footwear (QC): 6 1=Demonstrate adherence to instructed precautions during ADL tasks. 2=Patient will verbalize/demonstrate understanding of assistive devic es/modifications for ADL. 3=Patient will improve strength/tolerance for activity to enable patient to perform ADL's. OT Education/Plan Problem List/Assessment Assessment: Decreased Activ Tolerance, Impaired Coordination, Impaired Funct Balance, Impaired Self-Care Skills Discharge Recommendations Plan/Recommendations: Continue POC Treatment Plan/Plan of Care Treatment,Training & Education: Yes Patient would benefit from OT for education, treatment and training to promote independence in ADL's, mobility, safety and/or upper extremity function for ADL's. Plan of Care: ADL Retraining, Functional Mobility, Group Exercise/Act as Ind, UE Funct Exercise/Act Treatment Duration: Jan 08, 2023 Frequency: 3 times per week (3-5 times per week) Rehab Potential: Fair Up in recliner, all needs met. Time Start Time: 12:50 Stop Time: 13:00 DATE: Jan 04, 2023 Total Time Billed (hr/min): 10 Billed Treatment Time EVM 10 min WENDY CHRISTENSEN OT Jan 04, 2023 14:02
[2023-01-04 14:35] LABS: POTASSIUM 3.8 MMOL/L (3.6-5.0)
[2023-01-04 14:40] LABS: CREATININE SERUM 0.85 MG/DL (0.60-1.30)
--- NOTE | 2023-01-04 17:42 | History & Physical-Hospitalist ---
History of Present Illness HPI/Chief Complaint Hesham Jones is an 82 year old male with PMH HTN, HLD, CAD s/p CABG, who presented with weakness. He has also been dizzy. He had a fall at home. He has reportedly had low blood pressures. He denies chest pain. He denies shortness of breath. He has no other complaints. Source: patient Exam Limitations: no limitations Date Seen 01/04/23 Time Seen by a Provider: 08:30 Attending Physician Junior Richardson MD PCP Admitting Physician: Sean Liu MD Attending Physician: Asher Chinchilla MD Referring Physician Date of Admission Jan 03, 2023 at 19:00 Home Medications & Allergies Home Medications Reviewed patient Home Medication Reconciliation performed by pharmacy medication reconciliations zone maintenance technician and/or nursing. Patients Allergies have been reviewed. Allergies Allergies Coded Allergies erythromycin base (Verified Allergy, Mild, 12/09/22) Past Nqiuoba-Oaqqkp-Whxyue Hx Patient Social History Tobacco Use?: No Use of E-Cig and/or Vaping dev: No Substance use?: No Immunizations Up To Date Date of Influenza Vaccine: Nov 25, 2015 First/Initial COVID19 Vaccinat: 2 SHOTS Second COVID19 Vaccination Jarvis: NONE Tetanus Booster (TDap): Unknown Hepatitis A: No Hepatitis B: No Seasonal Allergies Seasonal Allergies: Yes Current Status Communicates: Verbally Primary Language: Surinamese Preferred Spoken Language: Surinamese Is interpretation needed?: No Sensory deficits: Vision impairment Past Medical History Surgeries: Cardiac, Orthopedic Hypertension Sexually Transmitted Disease: No HIV/AIDS: No Arthritis, Chronic Back Pain Loss of Vision: Bilateral Hearing Impairment: Denies Melanoma Adverse Reaction/Blood Tranf: No (N/A) Family Medical History No Pertinent Family Hx Review of Systems Constitutional: dizziness, weakness Respiratory: no symptoms reported Cardiovascular: no symptoms reported Gastrointestinal: no symptoms reported Physical Exam Physical Exam Vital Signs Vital Signs - First Documented 01/03/23 14:30 Temp 35.8 Pulse 58 Resp 16 B/P (MAP) 83/59 (67) Pulse Ox 98 O2 Delivery Room Air Capillary Refill : Less Than 3 Seconds Height, Weight, BMI Height: 5'10.00" Weight: 227lbs. 0.0oz. 102.877119gy; 27.01 BMI Method: General Appearance: No Apparent Distress, WD/WN HEENT: PERRL/EOMI, Pharynx Normal Neck: Normal Inspection, Supple Respiratory: Lungs Clear, Normal Breath Sounds, No Respiratory Distress Cardiovascular: Regular Rate, Rhythm, No Edema, No Murmur Gastrointestinal: Normal Bowel Sounds, Non Tender, Soft Extremity: Normal Inspection, No Pedal Edema Neurologic/Psychiatric: Alert, Normal Mood/Affect Skin: Normal Color, Warm/Dry Results Results/Procedures Labs Laboratory Tests 01/03/23 14:53 01/04/23 04:07 01/04/23 09:52 01/04/23 14:10 Patient resulted labs reviewed. Imaging: Reviewed Imaging Report Assessment/Plan Admission Diagnosis Hyponatremia Admission Status: Inpatient Order (span 2 midnights) Reason for Inpatient Admission: Weakness Assessment and Plan Hyponatremia Hypothyroidism Debility Possible side effect of HCTZ Na 112 on arrival Started on normal saline Slightly increased this morning Begin 3% hypertonic saline Fluid restriction Monitor sodium levels closely TSH high and T4 undetectable Amiodarone stopped Started on Synthroid PT/OT HTN HLD CAD s/p CABG Resume Imdur and Amlodipine Continue other meds as able DVT prophylaxis: Lovenox Diagnosis/Problems Diagnosis/Problems (1) Hyponatremia Status: Acute (2) Hypothyroidism Status: Acute Qualifiers: Hypothyroidism type: unspecified Qualified Codes: E03.9 - Hypothyroidism, unspecified (3) HTN (hypertension) Status: Chronic (4) HLD (hyperlipidemia) Status: Chronic (5) CAD (coronary artery disease) Status: Chronic (6) S/P CABG (coronary artery bypass graft) Status: Chronic ASHER CHINCHILLA MD Jan 04, 2023 17:42
[2023-01-04] MEDS: ENOXAPARIN 40 MG/0.4 ML SYRINGE SQ SCH (18:22)
[2023-01-04 18:58] LABS: POTASSIUM 3.5 MMOL/L (3.6-5.0)
[2023-01-04 19:00] LABS: CALCIUM 7.9 MG/DL (8.5-10.1)
[2023-01-04 19:04] LABS: CREATININE SERUM 0.85 MG/DL (0.60-1.30)
[2023-01-04] MEDS ORDERED: POTASSIUM CHLORIDE 20 MEQ TABLET PO NR (19:30)
[2023-01-04] MEDS: BACLOFEN 10 MG TABLET PO SCH (20:26)
[2023-01-04] MEDS: amLODIPine 10 MG TABLET PO SCH (20:26)
[2023-01-04] MEDS: ISOSORBIDE MONONITRATE 30 MG TABLET PO SCH (20:27)
[2023-01-05 01:21] LABS: POTASSIUM 4.6 MMOL/L (3.6-5.0)
[2023-01-05 01:22] LABS: CALCIUM 7.5 MG/DL (8.5-10.1)
[2023-01-05 01:27] LABS: CREATININE SERUM 0.85 MG/DL (0.60-1.30)
[2023-01-05 03:50] LABS: BASOPHILS % (AUTO) 0 % (0-10); EOSINOPHILS # (AUTO) 0.1 10^3/uL (0.0-0.3); EOSINOPHILS % (AUTO) 1 % (0-10); HEMATOCRIT 33 % (40-54); HEMOGLOBIN 12.2 g/dL (13.3-17.7); LYMPHOCYTES # (AUTO) 1.4 10^3/uL (1.0-4.0); LYMPHOCYTES % (AUTO) 15 % (12-44); MEAN CORPUSCULAR HEMOGLOBIN 34 pg (25-34); MEAN CORPUSCULAR HGB CONC 37 g/dL (32-36); MEAN CORPUSCULAR VOLUME 92 fL (80-99); MEAN PLATELET VOLUME 9.6 fL (9.0-12.2); MONOCYTES # (AUTO) 0.9 10^3/uL (0.0-1.0); MONOCYTES % (AUTO) 10 % (0-12); NEUTROPHILS # (AUTO) 6.5 10^3/uL (1.8-7.8); NEUTROPHILS % (AUTO) 72 % (42-75); PLATELET COUNT 208 10^3/uL (130-400)
[2023-01-05 04:13] LABS: ALBUMIN 3.1 GM/DL (3.2-4.5)
[2023-01-05 04:14] LABS: CALCIUM 7.1 MG/DL (8.5-10.1)
[2023-01-05 04:17] LABS: BILIRUBIN,TOTAL 0.7 MG/DL (0.1-1.0)
[2023-01-05 04:19] LABS: CREATININE SERUM 0.79 MG/DL (0.60-1.30); PHOSPHORUS 2.3 MG/DL (2.3-4.7)
[2023-01-05 05:10] LABS: POTASSIUM 4.4 MMOL/L (3.6-5.0)
[2023-01-05 05:11] LABS: CALCIUM 7.9 MG/DL (8.5-10.1)
[2023-01-05 05:15] LABS: CREATININE SERUM 0.88 MG/DL (0.60-1.30)
[2023-01-05 05:30] LABS: PHOSPHORUS 2.4 MG/DL (2.3-4.7)
[2023-01-05 05:32] LABS: MAGNESIUM 2.1 MG/DL (1.6-2.4)
[2023-01-05] MEDS: MAGNESIUM 1 GM/100 ML IVPB 100 ML IV SCH (06:26)
[2023-01-05] MEDS: POTASSIUM CHLORIDE 20 MEQ TABLET PO SCH (06:26)
[2023-01-05] MEDS: POTASSIUM CL 10MEQ/50ML IVPB 50 ML IV SCH (06:26)
[2023-01-05] MEDS: LEVOTHYROXINE 100 MCG TABLET PO SCH (06:59)
[2023-01-05] MEDS: SODIUM CHLORIDE 3% IV SCH ×3 (06:59→23:02)
[2023-01-05] MEDS: DULoxetine 30 MG CAPSULE PO SCH (08:11)
[2023-01-05 08:22] LABS: POTASSIUM 4.2 MMOL/L (3.6-5.0)
[2023-01-05 08:24] LABS: CALCIUM 7.8 MG/DL (8.5-10.1)
[2023-01-05 08:28] LABS: CREATININE SERUM 0.85 MG/DL (0.60-1.30)
--- NOTE | 2023-01-05 09:18 | Physical Therapy Daily Note ---
PT Daily Note-Current Subjective Patient agrees to therapy Pain Section J - Health Conditions 1. Rarely or not at all 2. Occasionally 3. Frequently 4. Almost constantly 8. Unable to answer Pain Effect on Sleep: 1 Pain Interference with Therapy: 1 Pain Interference w/Day-to-Day: 1 Transfers SCALE: Activities may be completed with or without assistive devices. 7-Bohpgwgncq-pmfeuea completes the activity by him/herself with no assistance from a helper. 5-Set-up or Clean-up Assistance-helper sets up or cleans up; patient completes activity. [place] assists only prior to or following the activity. 4-Supervision or Touching Assistance-helper provides verbal cues and/or touching/steadying and/or contact guard assistance as patient completes activity. Assistance may be provided throughout the activity or intermittently. 3-Partial/Moderate Assistance-helper does LESS THAN HALF the effort. [place] lifts, holds or supports trunk or limbs, but provides less than half the effort. 2-Substantial/Maximal Assistance-helper does MORE THAN HALF the effort. [place] lifts or holds trunk or limbs and provides more than half the effort. 3-Tayaaogqk-tbmoly does ALL the effort. Patient does none of the effort to complete the activity. Or, the assistance of 2 or more helpers is required for the patient to complete the activity. If activity was not attempted, code reason: 7-Patient Refused. 9-Not Applicable-not attempted and the patient did not perform the activity before the current illness, exacerbation or injury. 10-Not Attempted due to Environmental Limitations-(lack of equipment, weather restraints, etc.). 88-Not Attempted due to Medical Conditions or Safety Concerns. Lying to Sitting/Side of Bed(Q: 4 Sit to Stand (QC): 4 Chair/Lkz-gi-Gmyiu Xfer(QC): 4 Gait Training Distance: 225' Walk 10 feet (QC): 4 Walk 50 ft with 2 Turns(QC): 4 Walk 150 ft (QC): 4 Gait Assistive Device: FWW steady gait sequence Assessment Patient tolerated treatment well and is up in recliner with needs met. PT to continue to increase activity as tolerated by patient. PT Mcfp Goals Mcfp Goals PT Business Loan Processor Goals Time Frame: Jan 16, 2023 Roll Left & Right (QC): 6 Sit to Lying (QC): 6 Lying-Sitting on Side/Bed(QC): 6 Sit to Stand (QC): 6 Chair/Iht-lf-Mojxs Xfer(QC): 6 Toilet Transfer (QC): 6 Walk 10 feet (QC): 5 Walk 50ft with 2 Turns (QC): 5 Walk 150 ft (QC): 5 PT Plan Treatment/Plan Treatment Plan: Continue Plan of Care Treatment Plan: Bed Mobility, Education, Functional Activity Lidya, Functional Strength, Gait, Safety, Therapeutic Exercise, Transfers Treatment Duration: Jan 16, 2023 Frequency: 6 times per week Estimated Hrs Per Day: .25 hour per day Patient and/or Family Agrees t: Yes Time Time In: 850 Time Out: 901 DATE: Jan 05, 2023 Total Billed Treatment Time: 11 Total Billed Treatment 1 visit FA 11 min MARGOT KELLEY PT Jan 05, 2023 09:17
--- NOTE | 2023-01-05 09:36 | Occupational Ther Daily Note ---
OT Current Status-Daily Note Subjective agreeable to OT, reports woke in night to urinate and forgot to use urinal, saturated bed Mental Status/Objective Patient Orientation: Person, Place, Time, Situation Attachments: IV, Oxygen, Telemetry Patient reports he cannot hear out of left ear. Patient has delayed responses and actions to commands ADL-Treatment Pungent odor present, sponge bathing w/ OT with soap and water, required clean clothes x3 d/t unable to rinse of odor out of cloth. Therapy Code Descriptions/Definitions Functional [place] Measure: 0=Not Assessed/NA 4=Minimal Assistance 1=Total Assistance 5=Supervision or Setup 2=Maximal Assistance 6=Modified [place] 3=Moderate Assistance 7=Complete IndependenceSCALE: Activities may be completed with or without assistive devices. 8-Xbthqyigdo-fsrajnt completes the activity by him/herself with no assistance from a helper. 5-Set-up or Clean-up Assistance-helper sets up or cleans up; patient completes activity. [place] assists only prior to or following the activity. 4-Supervision or Touching Assistance-helper provides verbal cues and/or touching/steadying and/or contact guard assistance as patient completes activi ty. Assistance may be provided throughout the activity or intermittently. 3-Partial/Moderate Assistance-helper does LESS THAN HALF the effort. [place] lifts, holds or supports trunk or limbs, but provides less than half the effort. 2-Substantial/Maximal Assistance-helper does MORE THAN HALF the effort. [place] lifts or holds trunk or limbs and provides more than half the effort. 0-Ydsvdrauf-uhaupi does ALL the effort. Patient does none of the effort to complete the activity. Or, the assistance of 2 or more helpers is required for the patient to complete the activity. If activity was not attempted, code reason: 7-Patient Refused. 9-Not Applicable-not attempted and the patient did not perform the activity before the current illness, exacerbation or injury. 10-Not Attempted due to Environmental Limitations-(lack of equipment, weather restraints, etc.). 88-Not Attempted due to Medical Conditions or Safety Concerns. Oral Hygiene (QC): 5 Bathing Location: L Arm, R Arm, Chest Upper Body Dressing (QC): 4 Lower Body Dressing (QC): 4 On/Off Footwear: 4 Toileting Hygiene (QC): 4 Toilet Transfer (QC): 4 Education OT Patient Education: Correct positioning, Modified ADL techniques, Progress toward Goal/Update tx plan, Purpose of tx/functional activities, Reviewed precautions, Rehab process, Safety issues, Transfer techniques Teaching Recipient: Patient Teaching Methods: Demonstration, Discussion Response to Teaching: Reinforcement Needed OT Clinical Informaticist Goals Clinical Informaticist Goals Eating (QC): 6 Oral Hygiene (QC): 6 Toileting Hygiene (QC): 6 Shower/Bathe Self (QC): 6 Upper Body Dressing (QC): 6 Lower Body Dressing (QC): 6 On/Off Footwear (QC): 6 1=Demonstrate adherence to instructed precautions during ADL tasks. 2=Patient will verbalize/demonstrate understanding of assistive devices/modifications for ADL. 3=Patient will improve strength/tolerance for activity to enable patient to perform ADL's. OT Education/Plan Problem List/Assessment Assessment: Decreased Activ Tolerance, Decreased Safety Aware, Impaired Cognition, Impaired Coordination, Impaired Self-Care Skills Discharge Recommendations Plan/Recommendations: Continue POC Treatment Plan/Plan of Care Treatment,Training & Education: Yes Patient would benefit from OT for education, treatment and training to promote independence in ADL's, mobility, safety and/or upper extremity function for ADL's. Plan of Care: ADL Retraining, Functional Mobility, Group Exercise/Act as Ind, UE Funct Exercise/Act Treatment Duration: Jan 08, 2023 Frequency: 3 times per week (3-5 times per week) Agreement: Yes Rehab Potential: Fair Time Start Time: 08:51 Stop Time: 09:10 DATE: Jan 05, 2023 Total Time Billed (hr/min): 19 Billed Treatment Time ADL 19 min WENDY CHRISTENSEN OT Jan 05, 2023 09:36
--- NOTE | 2023-01-05 09:56 | Tele-ICU Progress Note ---
Subjective Date Seen by a Provider: Jan 05, 2023 Time Seen by a Provider: 09:56 Subjective/Events-last exam (Tele-ICU Physician , Progress Note ) Service provided via interactive audio and video telecommunications E-CARE system to a patient admitted to ICU bed in [facility]. Patient is seen today due to persistent need of ICU care Available chart/ vitals / labs / Images reviewed Video assessment done using teleICU camera, rest of exam as per RN Discussed with RN Events overnight : Afebrile hemodynamically stable Respiratory - ra I/O =+ Drips: 3% Pressors- no Hospital course: (01.03) Admitted a 82y/o with hyponatremia, hypothyroidism A/P hyponatremia - on 3% Nacl 01/04 - now at 40 , follow q4 h - goal midday 01/05 122 , and 01/06 --> 130 Hypothyroidism -TSH high and T4 undetectable -on Synthroid ( Amiodarone stopped) Confusion - improved - [facility] 01/03 - no acute h/o CAD, CABG in January 2022 - as per cardfs Lines : PICC 01/04 , (Central Line Necessity Reviewed) Mcgee: void OG: Nutrition: Analgesia: Anxiety/ delirium VTE Prophylaxis: kathia Stress Ulcer Prophylaxis: Plans in collaboration with bedside consultants and IM MDs. Discussed with RN to reach out if any questions or concerns Case and care daily discussed on multidisciplinary rounds ( RN, PharmD, [place] , Respiratory Therapy, night worker ) A total of 15 minutes of critical care time was devoted to this patient today, required to treat and/or prevent further deterioration of critical care condition ( as above ) . I am remotely monitoring this patient from another state. I am unable to do the bedside exam, and history/physical and pertinent information is taken from other notes in the computer and bedside staff. Sepsis Event Evaluation Height, Weight, BMI Height: 5'10.00" Weight: 227lbs. 0.0oz. [id number]; 27.04 BMI Method: Exam Exam Patient acknowledged, consented, and participated in this virtual visit which was conducted using real time audio/video Vital Signs Date Time Temp Pulse Resp B/P (MAP) Pulse Ox O2 Delivery O2 Flow Rate FiO2 01/05/23 08:05 36.2 01/05/23 07:00 59 01/05/23 06:30 61 25 104/80 (91) 97 Room Air 01/05/23 06:00 60 28 128/71 (93) 97 Room Air 01/05/23 05:30 61 23 121/67 (80) 98 Room Air 01/05/23 05:00 61 35 104/83 (94) 95 Room Air 01/05/23 04:30 71 28 132/70 (90) 97 Room Air 01/05/23 04:00 61 15 117/67 (89) 98 Room Air 01/05/23 04:00 97 Room Air 01/05/23 03:30 62 12 108/72 (80) 98 Room Air 01/05/23 03:29 36.4 01/05/23 03:00 80 16 134/71 (95) 96 Room Air 01/05/23 02:30 60 17 118/98 (106) 98 Room Air 01/05/23 02:00 60 20 92/71 (79) 97 Room Air 01/05/23 01:30 64 10 107/59 (74) 97 Room Air 01/05/23 01:00 63 01/05/23 01:00 63 13 90/55 (70) 96 Room Air 01/05/23 00:23 36.4 01/05/23 00:06 64 22 87/55 (66) 93 Room Air 01/05/23 00:04 63 28 71/58 (65) Room Air 01/05/23 00:00 63 12 98/45 (62) 94 Room Air 01/04/23 23:59 98 Room Air 01/04/23 23:00 61 17 81/46 (56) 96 Room Air 01/04/23 22:16 67 26 111/52 (70) 94 Room Air 01/04/23 22:13 67 32 87/58 (66) 95 Room Air 01/04/23 22:00 67 27 71/45 (56) 95 Room Air 01/04/23 21:00 66 26 109/80 (96) 100 Room Air 01/04/23 20:00 96 Room Air 01/04/23 20:00 66 26 111/73 (92) 97 Room Air 01/04/23 19:33 36.1 01/04/23 19:00 69 01/04/23 19:00 69 17 128/77 (83) Room Air 01/04/23 18:00 67 14 154/85 (108) 97 Room Air 01/04/23 17:00 65 11 137/111 (120) 97 Room Air 01/04/23 16:00 64 9 141/73 (95) 96 Room Air 01/04/23 15:43 36.5 01/04/23 15:20 97 Room Air 01/04/23 15:00 68 26 143/74 (97) 97 Room Air 01/04/23 14:00 60 27 123/73 (90) 96 Room Air 01/04/23 13:00 70 25 119/105 (110) 100 Room Air 01/04/23 12:33 97 Room Air 01/04/23 12:15 63 01/04/23 12:00 62 26 131/72 (91) 98 Room Air 01/04/23 11:49 35.9 01/04/23 11:00 62 25 98 Room Air 01/04/23 10:00 59 11 121/65 (83) 98 Room Air I & O 01/05/23 06:59 Intake Total 3150 ml Output Total 1325 ml Balance 1825 ml Height & Weight Height: 5'10.00" Weight: 227lbs. 0.0oz. 102.426125tx; 27.04 BMI Method: General Appearance: No Apparent Distress, WD/WN HEENT: PERRL/EOMI, Pharynx Normal Neck: Normal Inspection, Supple Respiratory: Lungs Clear, Normal Breath Sounds, No Respiratory Distress Cardiovascular: Regular Rate, Rhythm, No Edema, No Murmur Capillary Refill: Less Than 3 Seconds Gastrointestinal: normal bowel sounds, non tender Extremity: Normal Inspection, No Pedal Edema Neurologic/Psychiatric: Alert, Normal Mood/Affect Skin: Normal Color, Warm/Dry Results Lab Laboratory Tests 01/03/23 14:53 01/04/23 04:07 01/04/23 08:10 01/04/23 09:52 01/04/23 14:10 01/04/23 18:15 01/04/23 22:15 01/05/23 01:00 01/05/23 03:00 01/05/23 04:42 Assessment/Plan Assessment/Plan 1 HAYDEE RAMÍREZ MD Jan 05, 2023 09:56
--- NOTE | 2023-01-05 10:54 | Progress Note - Hospitalist ---
Subjective HPI/CC On Admission Date Seen by Provider: Jan 05, 2023 Time Seen by Provider: 08:20 Hesham Jones is an 82 year old male with PMH HTN, HLD, CAD s/p CABG, who presented with weakness. He has also been dizzy. He had a fall at home. He has reportedly had low blood pressures. He denies chest pain. He denies shortness of breath. He has no other complaints. Subjective/Events-last exam He is doing a little better. He denies pain. He denies shortness of breath. He has no complaints. Objective Exam Vital Signs Vital Signs Date Time Temp Pulse Resp B/P (MAP) Pulse Ox O2 Delivery O2 Flow Rate FiO2 01/05/23 09:00 61 23 100/61 (74) 100 Room Air 01/05/23 08:05 36.2 Capillary Refill : Less Than 3 Seconds General Appearance: No Apparent Distress, Obese Respiratory: Lungs Clear, No Respiratory Distress Cardiovascular: Regular Rate, Rhythm, No Murmur Gastrointestinal: Normal Bowel Sounds, Soft Extremity: Normal Inspection, No Pedal Edema Neurologic/Psychiatric: Alert, Normal Mood/Affect Skin: Normal Color, Warm/Dry Results/Procedures Lab Laboratory Tests 01/04/23 14:10 01/04/23 18:15 01/04/23 22:15 01/05/23 01:00 01/05/23 03:00 01/05/23 04:42 Patient resulted labs reviewed. Imaging: Reviewed Imaging Report Assessment/Plan Assessment and Plan Assess & Plan/Chief Complaint Hyponatremia Hypothyroidism Debility Na 119 this morning, increasing slowly as expected Continue 3% hypertonic saline Fluid restriction Monitor sodium levels closely TSH high and T4 undetectable Amiodarone stopped Started on Synthroid PT/OT HTN HLD CAD s/p CABG Continue Imdur and Amlodipine Continue other meds as able DVT prophylaxis: Lovenox Critical Care Critically Ill Patient Diagnosis/Problems Diagnosis/Problems (1) Hyponatremia Status: Acute (2) Hypothyroidism Status: Acute Qualifiers: Hypothyroidism type: unspecified Qualified Codes: E03.9 - Hypothyroidism, unspecified (3) HTN (hypertension) Status: Chronic (4) HLD (hyperlipidemia) Status: Chronic (5) CAD (coronary artery disease) Status: Chronic (6) S/P CABG (coronary artery bypass graft) Status: Chronic ASHER CHINCHILLA MD Jan 05, 2023 10:54
[2023-01-05] MEDS ORDERED: BISACODYL 5 MG TABLET PO PRN (11:00)
[2023-01-05] MEDS ORDERED: MILK OF MAGNESIA 400 MG/5 ML 30 ML UDC PO PRN (11:00)
[2023-01-05 12:45] LABS: POTASSIUM 3.7 MMOL/L (3.6-5.0)
[2023-01-05 12:46] LABS: CALCIUM 7.2 MG/DL (8.5-10.1)
[2023-01-05 12:50] LABS: CREATININE SERUM 0.79 MG/DL (0.60-1.30)
--- NOTE | 2023-01-05 14:28 | Cardiology Progress Note ---
Subjective Date Seen by Provider: Jan 05, 2023 Time Seen by Provider: 10:20 Subjective/Events-last exam Feels better. More energy. In sinus rhythm. Blood pressure is normal Exam Vital Signs Vital Signs Date Time Temp Pulse Resp B/P (MAP) Pulse Ox O2 Delivery O2 Flow Rate FiO2 01/05/23 13:01 64 01/05/23 11:48 36.2 01/05/23 11:00 97 Room Air 01/05/23 09:00 23 Physical Exam Alert oriented, no distress. Neck supple, no JVD. Lungs clear. Heart: S1-S2, regular rhythm, murmur unchanged. Abdomen soft, nontender. Extremities no edema Labs Laboratory Tests Test 01/04/23 18:15 01/04/23 22:15 01/05/23 01:00 01/05/23 03:00 Range/Units Sodium Level 114 *L 116 *L 118 *L 132 L 135-145 MMOL/L Potassium Level 3.5 L 4.6 4.0 3.6-5.0 MMOL/L Chloride Level 83 L 88 L 104 98-107 MMOL/L Carbon Dioxide Level 23 21-32 MMOL/L Anion Gap 8 7 5 5-14 MMOL/L Blood Urea Nitrogen 12 16 14 7-18 MG/DL Creatinine 0.85 0.85 0.79 0.60-1.30 MG/DL Estimat Glomerular Filtration Rate 88 88 90 BUN/Creatinine Ratio 14 19 18 Glucose Level 162 H 101 80 70-105 MG/DL Calcium Level 7.9 L 7.5 L 7.1 L 8.5-10.1 MG/DL White Blood Count 9.0 4.3-11.0 10^3/uL Red Blood Count 3.59 L 4.30-5.52 10^6/uL Hemoglobin 12.2 L 13.3-17.7 g/dL Hematocrit 33 L 40-54 % Mean Corpuscular Volume 92 80-99 fL Mean Corpuscular Hemoglobin 34 25-34 pg Mean Corpuscular Hemoglobin Concent 37 H 32-36 g/dL Red Cell Distribution Width 12.2 10.0-14.5 % Platelet Count 208 130-400 10^3/uL Mean Platelet Volume 9.6 9.0-12.2 fL Immature Granulocyte % (Auto) 1 % Neutrophils (%) (Auto) 72 42-75 % Lymphocytes (%) (Auto) 15 12-44 % Monocytes (%) (Auto) 10 0-12 % Eosinophils (%) (Auto) 1 0-10 % Basophils (%) (Auto) 0 0-10 % Neutrophils # (Auto) 6.5 1.8-7.8 10^3/uL Lymphocytes # (Auto) 1.4 1.0-4.0 10^3/uL Monocytes # (Auto) 0.9 0.0-1.0 10^3/uL Eosinophils # (Auto) 0.1 0.0-0.3 10^3/uL Basophils # (Auto) 0.0 0.0-0.1 10^3/uL Immature Granulocyte # (Auto) 0.1 0.0-0.1 10^3/uL Corrected Calcium 7.8 L 8.5-10.1 MG/DL Phosphorus Level 2.3 2.3-4.7 MG/DL Magnesium Level 2.0 1.6-2.4 MG/DL Total Bilirubin 0.7 0.1-1.0 MG/DL Aspartate Amino Transf (AST/SGOT) 26 5-34 U/L Alanine Aminotransferase (ALT/SGPT) 29 0-55 U/L Alkaline Phosphatase 34 L 40-136 U/L Total Protein 5.0 L 6.4-8.2 GM/DL Albumin 3.1 L 3.2-4.5 GM/DL Test 01/05/23 04:42 01/05/23 12:00 Range/Units Sodium Level 119 #*L 133 L 135-145 MMOL/L Potassium Level 4.4 3.7 3.6-5.0 MMOL/L Chloride Level 89 L 105 98-107 MMOL/L Carbon Dioxide Level 23 24 21-32 MMOL/L Anion Gap 7 4 L 5-14 MMOL/L Blood Urea Nitrogen 15 13 7-18 MG/DL Creatinine 0.88 0.79 0.60-1.30 MG/DL Estimat Glomerular Filtration Rate 87 90 BUN/Creatinine Ratio 17 16 Glucose Level 87 117 H 70-105 MG/DL Calcium Level 7.9 L 7.2 L 8.5-10.1 MG/DL Phosphorus Level 2.4 2.3-4.7 MG/DL Magnesium Level 2.1 1.6-2.4 MG/DL A/P-Cardiology Admission Diagnosis CAD. Hypertension. Hyponatremia. Hypothyroidism Assessment/Plan Patient is improving. Sodium was up. Continue present therapy. Okay to transfer from ICU from cardiology standpoint. BELKIS PEDERSEN MD Jan 05, 2023 14:27
[2023-01-05 15:45] LABS: POTASSIUM 3.7 MMOL/L (3.6-5.0)
[2023-01-05 15:46] LABS: CALCIUM 7.1 MG/DL (8.5-10.1)
[2023-01-05 15:50] LABS: CREATININE SERUM 0.76 MG/DL (0.60-1.30)
[2023-01-05] MEDS: ENOXAPARIN 40 MG/0.4 ML SYRINGE SQ SCH (17:41)
[2023-01-05] MEDS: BACLOFEN 10 MG TABLET PO SCH (19:57)
[2023-01-05] MEDS: ISOSORBIDE MONONITRATE 30 MG TABLET PO SCH (19:57)
[2023-01-05] MEDS: amLODIPine 10 MG TABLET PO SCH (19:57)
[2023-01-05 20:33] LABS: CALCIUM 8.1 MG/DL (8.5-10.1); CREATININE SERUM 0.86 MG/DL (0.60-1.30); POTASSIUM 4.8 MMOL/L (3.6-5.0)
[2023-01-06 00:48] LABS: POTASSIUM 4.2 MMOL/L (3.6-5.0)
[2023-01-06 00:49] LABS: CALCIUM 7.6 MG/DL (8.5-10.1)
[2023-01-06 00:54] LABS: CREATININE SERUM 0.85 MG/DL (0.60-1.30)
[2023-01-06] MEDS: LEVOTHYROXINE 100 MCG TABLET PO SCH (04:49)
[2023-01-06 05:34] LABS: ALBUMIN 3.2 GM/DL (3.2-4.5); POTASSIUM 4.1 MMOL/L (3.6-5.0)
[2023-01-06 05:35] LABS: CALCIUM 7.7 MG/DL (8.5-10.1)
[2023-01-06 05:36] LABS: TOTAL PROTEIN 5.2 GM/DL (6.4-8.2)
[2023-01-06 05:38] LABS: BILIRUBIN,TOTAL 0.8 MG/DL (0.1-1.0)
[2023-01-06 05:40] LABS: CREATININE SERUM 0.84 MG/DL (0.60-1.30); PHOSPHORUS 2.2 MG/DL (2.3-4.7)
[2023-01-06] MEDS: MAGNESIUM 1 GM/100 ML IVPB 100 ML IV SCH (06:06)
[2023-01-06] MEDS: POTASSIUM CL 10MEQ/50ML IVPB 50 ML IV SCH (06:07)
[2023-01-06] MEDS: POTASSIUM CHLORIDE 20 MEQ TABLET PO SCH (06:07)
[2023-01-06 06:36] LABS: BASOPHILS # (AUTO) 0.1 10^3/uL (0.0-0.1); BASOPHILS % (AUTO) 1 % (0-10); EOSINOPHILS # (AUTO) 0.2 10^3/uL (0.0-0.3); EOSINOPHILS % (AUTO) 3 % (0-10); HEMATOCRIT 31 % (40-54); HEMOGLOBIN 11.4 g/dL (13.3-17.7); LYMPHOCYTES # (AUTO) 1.3 10^3/uL (1.0-4.0); LYMPHOCYTES % (AUTO) 17 % (12-44); MEAN CORPUSCULAR HEMOGLOBIN 34 pg (25-34); MEAN CORPUSCULAR HGB CONC 36 g/dL (32-36); MEAN CORPUSCULAR VOLUME 94 fL (80-99); MEAN PLATELET VOLUME 9.5 fL (9.0-12.2); MONOCYTES # (AUTO) 0.7 10^3/uL (0.0-1.0); MONOCYTES % (AUTO) 9 % (0-12); NEUTROPHILS # (AUTO) 5.7 10^3/uL (1.8-7.8); NEUTROPHILS % (AUTO) 70 % (42-75); PLATELET COUNT 179 10^3/uL (130-400); WHITE BLOOD COUNT 8.1 10^3/uL (4.3-11.0)
[2023-01-06] MEDS: DULoxetine 30 MG CAPSULE PO SCH (08:05)
[2023-01-06 08:27] LABS: POTASSIUM 4.3 MMOL/L (3.6-5.0)
[2023-01-06 08:28] LABS: CALCIUM 7.6 MG/DL (8.5-10.1)
[2023-01-06 08:32] LABS: CREATININE SERUM 0.85 MG/DL (0.60-1.30)
--- NOTE | 2023-01-06 10:06 | Occupational Ther Daily Note ---
OT Current Status-Daily Note Subjective Patient resting in bed on arrival, agreeable to OT Pain Location: No Pain Reported Mental Status/Objective Patient Orientation: Person, Place, Time, Situation Attachments: IV ADL-Treatment Improved timeliness to transition from supine ot EOB sitting, OT provided education that patient is able to use his hand/UE with the 02 sensor taped to finger.Patient placed yellow non skid socks over white ankle socks. Face, neck and ear cleansing sitting EOB. At completion of session OT educated patient his able to move rolling bed tray table to his liking and position items on tray surface where he needs them. OT encouraged patient to sit forward and perform safe functional reach to perform simple tasks himself Therapy Code Descriptions/Definitions Functional [place] Measure: 0=Not Assessed/NA 4=Minimal Assistance 1=Total Assistance 5=Supervision or Setup 2=Maximal Assistance 6=Modified [place] 3=Moderate Assistance 7=Complete IndependenceSCALE: Activities may be completed with or without assistive devices. 2-Woqyqjdbkv-phlafdu completes the activity by him/herself with no assistance from a helper. 5-Set-up or Clean-up Assistance-helper sets up or cleans up; patient completes activity. [place] assists only prior to or following the activity. 4-Supervision or Touching Assistance-helper provides verbal cues and/or touching/steadying and/or contact guard assistance as patient completes activity. Assistance may be provided throughout the activity or intermittently. 3-Partial/Moderate Assistance-helper does LESS THAN HALF the effort. [place] lifts, holds or supports trunk or limbs, but provides less than half the effort. 2-Substantial/Maximal Assistance-helper does MORE THAN HALF the effort. [place] lifts or holds trunk or limbs and provides more than half the effort. 4-Xleubmyiw-lauabl does ALL the effort. Patient does none of the effort to complete the activity. Or, the assistance of 2 or more helpers is required for the patient to complete the activity. If activity was not attempted, code reason: 7-Patient Refused. 9-Not Applicable-not attempted and the patient did not perform the activity before the current illness, exacerbation or injury. 10-Not Attempted due to Environmental Limitations-(lack of equipment, weather restraints, etc.). 88-Not Attempted due to Medical Conditions or Safety Concerns. Eating (QC): 6 Oral Hygiene (QC): 5 (set up, patient reports he doesn't brush his teeth) Upper Body Dressing (QC): 4 Lower Body Dressing (QC): 4 On/Off Footwear: 4 Other Treatment Ambulation w/ therapy Education OT Patient Education: Correct positioning, Exercise program, Modified ADL techniques, Progress toward Goal/Update tx plan, Purpose of tx/functional activities, Reviewed precautions, Rehab process, Safety issues, Transfer techniques, Use of adapted equipment Teaching Recipient: Patient Teaching Methods: Demonstration, Discussion Response to Teaching: Verbalize Understanding, Reinforcement Needed OT Hvac Sales Engineer Goals Detention Goals Eating (QC): 6 Oral Hygiene (QC): 6 Toileting Hygiene (QC): 6 Shower/Bathe Self (QC): 6 Upper Body Dressing (QC): 6 Lower Body Dressing (QC): 6 On/Off Footwear (QC): 6 1=Demonstrate adherence to instructed precautions during ADL tasks. 2=Patient will verbalize/demonstrate understanding of assistive devices/modifications for ADL. 3=Patient will improve strength/tolerance for activity to enable patient to perform ADL's. OT Education/Plan Problem List/Assessment Assessment: Decreased Activ Tolerance, Decreased Safety Aware, Impaired Cognition, Impaired Funct Balance, Impaired Self-Care Skills Discharge Recommendations Plan/Recommendations: Continue POC Treatment Plan/Plan of Care Treatment,Training & Education: Yes Patient would benefit from OT for education, treatment and training to promote independence in ADL's, mobility, safety and/or upper extremity function for ADL's. Plan of Care: ADL Retraining, Functional Mobility, Group Exercise/Act as Ind, UE Funct Exercise/Act Treatment Duration: Jan 08, 2023 Frequency: 3 times per week (3-5 times per week) Agreement: Yes Rehab Potential: Fair Remains in recliner, fresh coffee, call light in lap, all needs met Time Start Time: 09:24 Stop Time: 09:40 DATE: Jan 06, 2023 Total Time Billed (hr/min): 16 Billed Treatment Time ADLs 16 min WENDY CHRISTENSEN OT Jan 06, 2023 10:06
--- NOTE | 2023-01-06 10:35 | Tele-ICU Progress Note ---
Subjective Date Seen by a Provider: Jan 06, 2023 Time Seen by a Provider: 10:34 Subjective/Events-last exam (Tele-ICU Physician , Progress Note ) Service provided via interactive audio and video telecommunications E-CARE system to a patient admitted to ICU bed in [facility]. Patient is seen today due to persistent need of ICU care Available chart/ vitals / labs / Images reviewed Video assessment done using teleICU camera, rest of exam as per RN Discussed with RN Events overnight : Afebrile hemodynamically stable Respiratory - ra I/O =+ Drips: 3% Pressors- no Hospital course: (01.03) Admitted a 82y/o with hyponatremia, hypothyroidism A/P hyponatremia - on 3% Nacl 01/04 - now at 40 , follow q6 h ( suspected high levels of Na are most likely wrong results with bllod sample form line - will do peripheral draw only - discussed with RN Hypothyroidism -TSH high and T4 undetectable -on Synthroid ( Amiodarone stopped) Confusion - improved - CTH 01/03 - no acute h/o CAD, CABG in January 2022 - as per cardfs Lines : PICC 01/04 , (Central Line Necessity Reviewed) Mcgee: void OG: Nutrition: Analgesia: Anxiety/ delirium VTE Prophylaxis: kathia Stress Ulcer Prophylaxis: Plans in collaboration with bedside consultants and IM MDs. Discussed with RN to reach out if any questions or concerns Case and care daily discussed on multidisciplinary rounds ( RN, PharmD, Commercial Mortgage Broker , Respiratory Therapy, assembly line worker ) A total of 15 minutes of critical care time was devoted to this patient today, required to treat and/or prevent further deterioration of critical care condition ( as above ) . I am remotely monitoring this patient from another state. I am unable to do the bedside exam, and history/physical and pertinent information is taken from other notes in the computer and bedside staff. Sepsis Event Evaluation Height, Weight, BMI Height: 5'10.00" Weight: 227lbs. 0.0oz. 102.038701ey; 27.04 BMI Method: Exam Exam Patient acknowledged, consented, and participated in this virtual visit which was conducted using real time audio/video Vital Signs Date Time Temp Pulse Resp B/P (MAP) Pulse Ox O2 Delivery O2 Flow Rate FiO2 01/06/23 08:00 36.6 01/06/23 06:00 63 23 120/69 (86) 96 Room Air 01/06/23 05:00 69 27 91/67 (75) 96 Room Air 01/06/23 04:55 36.1 01/06/23 04:47 67 13 98/63 (75) 96 Room Air 01/06/23 04:00 98 Room Air 01/06/23 04:00 67 11 97 Room Air 01/06/23 03:00 64 12 89/61 (70) 97 Room Air 01/06/23 02:00 64 14 105/69 (81) 99 Room Air 01/06/23 01:00 65 01/06/23 01:00 65 13 98/63 (75) 97 Room Air 01/06/23 00:00 63 12 88/54 (63) 98 Room Air 01/05/23 23:20 36.7 01/05/23 23:00 63 93/59 (70) 97 Room Air 01/05/23 22:00 60 88/76 (79) 96 Room Air 01/05/23 21:08 61 83/53 (63) 96 Room Air 01/05/23 21:04 61 73/33 (35) 95 Room Air 01/05/23 21:00 62 75/56 (69) 97 Room Air 01/05/23 20:00 65 136/80 (101) 99 Room Air 01/05/23 20:00 98 Room Air 01/05/23 19:00 66 01/05/23 19:00 36.8 64 137/88 (104) 96 Room Air 01/05/23 18:00 65 144/82 (102) 99 Room Air 01/05/23 16:00 64 122/98 (106) 97 Room Air 01/05/23 15:48 96 Room Air 01/05/23 15:43 36.3 01/05/23 15:00 64 149/81 (103) 98 Room Air 01/05/23 14:00 62 141/74 (96) 97 Room Air 01/05/23 13:01 64 01/05/23 13:00 63 143/76 (98) 98 Room Air 01/05/23 12:05 95 Room Air 01/05/23 12:00 64 115/80 (92) 97 Room Air 01/05/23 11:48 36.2 01/05/23 11:00 59 135/74 (94) 97 Room Air I & O 01/06/23 06:59 Intake Total 1345 ml Output Total 1400 ml Balance -55 ml Height & Weight Height: 5'10.00" Weight: 227lbs. 0.0oz. [id number]; 27.04 BMI Method: General Appearance: No Apparent Distress, Obese HEENT: PERRL/EOMI, Pharynx Normal Neck: Normal Inspection, Supple Respiratory: Lungs Clear, No Respiratory Distress Cardiovascular: Regular Rate, Rhythm, No Murmur Capillary Refill: Less Than 3 Seconds Gastrointestinal: normal bowel sounds, non tender Extremity: Normal Inspection, No Pedal Edema Neurologic/Psychiatric: Alert, Normal Mood/Affect Skin: Normal Color, Warm/Dry Results Lab Laboratory Tests 01/04/23 14:10 01/04/23 18:15 01/04/23 22:15 01/05/23 01:00 01/05/23 03:00 01/05/23 04:42 01/05/23 12:00 01/05/23 15:30 01/05/23 16:19 01/05/23 20:05 01/05/23 22:33 01/06/23 00:21 01/06/23 05:10 01/06/23 08:10 Assessment/Plan Assessment/Plan 1 HAYDEE RAMÍREZ MD Jan 06, 2023 10:35
--- NOTE | 2023-01-06 11:44 | Physical Therapy Daily Note ---
PT Daily Note-Current Subjective Patient lying supine in bed upon PT arrival, agreeable to treatment. Pain Section J - Health Conditions 1. Rarely or not at all 2. Occasionally 3. Frequently 4. Almost constantly 8. Unable to answer Pain Effect on Sleep: 1 Pain Interference with Therapy: 1 Pain Interference w/Day-to-Day: 1 Transfers SCALE: Activities may be completed with or without assistive devices. 6-Pshxpfyjgo-vkhpqny completes the activity by him/herself with no assistance from a helper. 5-Set-up or Clean-up Assistance-helper sets up or cleans up; patient completes activity. [place] assists only prior to or following the activity. 4-Supervision or Touching Assistance-helper provides verbal cues and/or touching/steadying and/or contact guard assistance as patient completes activity. Assistance may be provided throughout the activity or intermittently. 3-Partial/Moderate Assistance-helper does LESS THAN HALF the effort. [place] lifts, holds or supports trunk or limbs, but provides less than half the effort. 2-Substantial/Maximal Assistance-helper does MORE THAN HALF the effort. [place] lifts or holds trunk or limbs and provides more than half the effort. 5-Dqpfjcaje-wnuxqf does ALL the effort. Patient does none of the effort to complete the activity. Or, the assistance of 2 or more helpers is required for the patient to complete the activity. If activity was not attempted, code reason: 7-Patient Refused. 9-Not Applicable-not attempted and the patient did not perform the activity before the current illness, exacerbation or injury. 10-Not Attempted due to Environmental Limitations-(lack of equipment, weather restraints, etc.). 88-Not Attempted due to Medical Conditions or Safety Concerns. Roll Left & Right (QC): 3 Sit to Lying (QC): 3 Lying to Sitting/Side of Bed(Q: 3 Sit to Stand (QC): 3 Chair/Hsz-ss-Qnaxi Xfer(QC): 3 Weight Bearing Right Lower Extremity: Right Full Weight Bearing Left Lower Extremity: Left Full Weight Bearing Gait Training Does the Patient Walk?: Yes Distance: 350' Walk 10 feet (QC): 4 Walk 50 ft with 2 Turns(QC): 4 Walk 150 ft (QC): 4 Gait Persons Needed: 1 Gait Assistive Device: FWW Assessment Current Status: Fair Progress Patient tolerated treatment well. Patient performs all observed bed mobility and transfers with min a. Patient ambulates 350' with FWW, with SBA and verbal cues for safety, progression, posture. Patient in chair post treatment with all needs met, nursing notified, call light in reach. PT Sales Promoter Goals Mcfp Goals PT Mcfp Goals Time Frame: Jan 16, 2023 Roll Left & Right (QC): 6 Sit to Lying (QC): 6 Lying-Sitting on Side/Bed(QC): 6 Sit to Stand (QC): 6 Chair/Yww-eq-Buked Xfer(QC): 6 Toilet Transfer (QC): 6 Walk 10 feet (QC): 5 Walk 50ft with 2 Turns (QC): 5 Walk 150 ft (QC): 5 PT Plan Treatment/Plan Treatment Plan: Continue Plan of Care Treatment Plan: Bed Mobility, Education, Functional Activity Lidya, Functional Strength, Gait, Safety, Therapeutic Exercise, Transfers Treatment Duration: Jan 16, 2023 Frequency: 6 times per week Estimated Hrs Per Day: .25 hour per day Patient and/or Family Agrees t: Yes Safety Risks/Education Patient Education: Gait Training, Transfer Techniques Teaching Recipient: Patient Teaching Methods: Demonstration, Discussion Response to Teaching: Verbalize Understanding, Return Demonstration Time Time In: 936 Time Out: 1000 DATE: Jan 06, 2023 Total Billed Treatment Time: 24 Total Billed Treatment Visit, GT (2) LONI PEREZ PT Jan 06, 2023 11:44
[2023-01-06] MEDS: SODIUM CHLORIDE 3% IV SCH (13:14)
--- NOTE | 2023-01-06 13:43 | Progress Note - Hospitalist ---
Subjective HPI/CC On Admission Date Seen by Provider: Jan 06, 2023 Time Seen by Provider: 09:00 Hesham Jones is an 82 year old male with PMH HTN, HLD, CAD s/p CABG, who presented with weakness. He has also been dizzy. He had a fall at home. He has reportedly had low blood pressures. He denies chest pain. He denies shortness of breath. He has no other complaints. Subjective/Events-last exam He has been up walking in the halls. He is feeling a bit better. He is constipated. Objective Exam Vital Signs Vital Signs Date Time Temp Pulse Resp B/P (MAP) Pulse Ox O2 Delivery O2 Flow Rate FiO2 01/06/23 11:52 36.3 01/06/23 11:00 61 11 96 Room Air Capillary Refill : Less Than 3 Seconds General Appearance: No Apparent Distress, WD/WN Respiratory: Lungs Clear, No Respiratory Distress Cardiovascular: Regular Rate, Rhythm, No Murmur Gastrointestinal: Normal Bowel Sounds, Soft Extremity: Normal Inspection, No Pedal Edema Neurologic/Psychiatric: Alert, Normal Mood/Affect Skin: Normal Color, Warm/Dry Results/Procedures Lab Laboratory Tests 01/05/23 15:30 01/05/23 16:19 01/05/23 20:05 01/05/23 22:33 01/06/23 00:21 01/06/23 05:10 01/06/23 08:10 Patient resulted labs reviewed. Imaging: Reviewed Imaging Report Assessment/Plan Assessment and Plan Assess & Plan/Chief Complaint Hyponatremia Hypothyroidism Debility Na 122 this morning Continue 3% hypertonic saline, increase rate slightly Fluid restriction Monitor sodium levels closely TSH high and T4 undetectable Amiodarone stopped Continue Synthroid PT/OT HTN HLD CAD s/p CABG Continue Imdur and Amlodipine Continue other meds as able DVT prophylaxis: Lovenox Critical Care Critically Ill Patient Diagnosis/Problems Diagnosis/Problems (1) Hyponatremia Status: Acute (2) Hypothyroidism Status: Acute Qualifiers: Hypothyroidism type: unspecified Qualified Codes: E03.9 - Hypothyroidism, unspecified (3) HTN (hypertension) Status: Chronic (4) HLD (hyperlipidemia) Status: Chronic (5) CAD (coronary artery disease) Status: Chronic (6) S/P CABG (coronary artery bypass graft) Status: Chronic ASHER CHINCHILLA MD Jan 06, 2023 13:43
[2023-01-06 14:07] LABS: POTASSIUM 4.2 MMOL/L (3.6-5.0)
[2023-01-06 14:13] LABS: CREATININE SERUM 0.97 MG/DL (0.60-1.30)
[2023-01-06] MEDS: DOCUSATE SODIUM 100 MG CAPSULE PO SCH ×2 (14:26→20:20)
[2023-01-06] MEDS: ENOXAPARIN 40 MG/0.4 ML SYRINGE SQ SCH (17:24)
[2023-01-06 20:20] LABS: POTASSIUM 4.3 MMOL/L (3.6-5.0)
[2023-01-06] MEDS: ISOSORBIDE MONONITRATE 30 MG TABLET PO SCH (20:20)
[2023-01-06] MEDS: BACLOFEN 10 MG TABLET PO SCH (20:20)
[2023-01-06] MEDS: amLODIPine 10 MG TABLET PO SCH (20:20)
[2023-01-06 20:26] LABS: CREATININE SERUM 0.91 MG/DL (0.60-1.30)
[2023-01-07 00:44] LABS: POTASSIUM 4.2 MMOL/L (3.6-5.0)
[2023-01-07 00:45] LABS: CALCIUM 7.7 MG/DL (8.5-10.1)
[2023-01-07 00:49] LABS: CREATININE SERUM 0.82 MG/DL (0.60-1.30)
[2023-01-07] MEDS: SODIUM CHLORIDE 3% IV SCH (02:20)
[2023-01-07 04:33] LABS: BASOPHILS # (AUTO) 0.1 10^3/uL (0.0-0.1); BASOPHILS % (AUTO) 1 % (0-10); EOSINOPHILS # (AUTO) 0.2 10^3/uL (0.0-0.3); EOSINOPHILS % (AUTO) 3 % (0-10); HEMATOCRIT 31 % (40-54); HEMOGLOBIN 11.3 g/dL (13.3-17.7); LYMPHOCYTES # (AUTO) 1.4 10^3/uL (1.0-4.0); LYMPHOCYTES % (AUTO) 18 % (12-44); MEAN CORPUSCULAR HEMOGLOBIN 34 pg (25-34); MEAN CORPUSCULAR HGB CONC 36 g/dL (32-36); MEAN CORPUSCULAR VOLUME 95 fL (80-99); MEAN PLATELET VOLUME 10.3 fL (9.0-12.2); MONOCYTES # (AUTO) 0.7 10^3/uL (0.0-1.0); MONOCYTES % (AUTO) 9 % (0-12); NEUTROPHILS # (AUTO) 5.7 10^3/uL (1.8-7.8); NEUTROPHILS % (AUTO) 70 % (42-75); PLATELET COUNT 244 10^3/uL (130-400); WHITE BLOOD COUNT 8.2 10^3/uL (4.3-11.0)
[2023-01-07 05:04] LABS: ALBUMIN 3.2 GM/DL (3.2-4.5); BILIRUBIN,TOTAL 0.7 MG/DL (0.1-1.0); CREATININE SERUM 0.85 MG/DL (0.60-1.30); MAGNESIUM 1.9 MG/DL (1.6-2.4); PHOSPHORUS 2.1 MG/DL (2.3-4.7); POTASSIUM 4.4 MMOL/L (3.6-5.0); TOTAL PROTEIN 5.2 GM/DL (6.4-8.2)
[2023-01-07] MEDS: MAGNESIUM 1 GM/100 ML IVPB 100 ML IV SCH (05:11)
[2023-01-07] MEDS: POTASSIUM CL 10MEQ/50ML IVPB 50 ML IV SCH (05:11)
[2023-01-07] MEDS: POTASSIUM CHLORIDE 20 MEQ TABLET PO SCH (05:11)
[2023-01-07] MEDS: LEVOTHYROXINE 100 MCG TABLET PO SCH (06:32)
[2023-01-07 08:12] LABS: CALCIUM 8.3 MG/DL (8.5-10.1); CREATININE SERUM 0.83 MG/DL (0.60-1.30); POTASSIUM 4.4 MMOL/L (3.6-5.0)
[2023-01-07] MEDS: DOCUSATE SODIUM 100 MG CAPSULE PO SCH ×2 (08:22→20:17)
[2023-01-07] MEDS: DULoxetine 30 MG CAPSULE PO SCH (08:29)
--- NOTE | 2023-01-07 09:16 | Tele-ICU Progress Note ---
Subjective Date Seen by a Provider: Jan 07, 2023 Time Seen by a Provider: 09:15 Subjective/Events-last exam (Tele-ICU Physician , Progress Note ) Service provided via interactive audio and video telecommunications E-CARE system to a patient admitted to ICU bed in [facility]. Patient is seen today due to persistent need of ICU care Available chart/ vitals / labs / Images reviewed Video assessment done using teleICU camera, rest of exam as per RN Discussed with RN Events overnight : Afebrile hemodynamically stable Respiratory - ra I/O =+ Drips: 3% Pressors- no Hospital course: (01.03) Admitted a 82y/o with hyponatremia, hypothyroidism A/P hyponatremia - on 3% Nacl STOPPED at 6 am after Na was 129 - to follow off any drips 01/04 - now at 40 , follow q6 h - salt tablets Hypothyroidism -TSH high and T4 undetectable -on Synthroid ( Amiodarone stopped- in sinus Confusion -RESOLVED - CTH 01/03 - no acute h/o CAD, CABG in January 2022 - as per cardfs Lines : PICC 01/04 , (Central Line Necessity Reviewed) Mcgee: void OG: Nutrition: po Analgesia: Anxiety/ delirium VTE Prophylaxis: kathia Stress Ulcer Prophylaxis: Plans in collaboration with bedside consultants and IM MDs. Discussed with RN to reach out if any questions or concerns Case and care daily discussed on multidisciplinary rounds ( RN, PharmD, Plant Engineering Manager , Respiratory Therapy, children's service worker ) A total of 15 minutes of critical care time was devoted to this patient today, required to treat and/or prevent further deterioration of critical care condition ( as above ) . Sepsis Event Evaluation Height, Weight, BMI Height: 5'10.00" Weight: 227lbs. 0.0oz. 102.987400sn; 27.04 BMI Method: Exam Exam Patient acknowledged, consented, and participated in this virtual visit which was conducted using real time audio/video Vital Signs Date Time Temp Pulse Resp B/P (MAP) Pulse Ox O2 Delivery O2 Flow Rate FiO2 01/07/23 09:00 67 9 103/55 (64) 99 Room Air 01/07/23 08:00 36.2 01/07/23 08:00 67 22 109/72 (91) Room Air 01/07/23 07:00 63 12 111/70 (84) 96 Room Air 01/07/23 07:00 64 01/07/23 06:00 62 11 107/65 (79) 97 Room Air 01/07/23 05:00 65 11 97/57 (70) 96 Room Air 01/07/23 04:00 58 11 90/69 (76) 96 Room Air 01/07/23 04:00 Room Air 01/07/23 03:00 61 11 92/56 (68) 97 Room Air 01/07/23 02:00 61 11 99/60 (73) 97 Room Air 01/07/23 01:00 60 11 97/78 (84) 96 Room Air 01/07/23 00:19 36.4 01/07/23 00:09 61 01/07/23 00:00 61 12 81/57 (65) 95 Room Air 01/06/23 23:59 Room Air 01/06/23 23:00 63 11 82/61 (68) 97 Room Air 01/06/23 22:00 63 14 108/68 (81) 91 Room Air 01/06/23 21:00 63 11 110/70 (83) 97 Room Air 01/06/23 20:25 Room Air 01/06/23 20:00 75 20 112/66 (81) 100 Room Air 01/06/23 20:00 36.1 01/06/23 19:00 72 23 93/60 (71) 98 Room Air 01/06/23 19:00 36.5 01/06/23 18:54 71 01/06/23 18:00 74 14 118/77 (91) 98 Room Air 01/06/23 17:00 74 16 123/95 (104) 98 Room Air 01/06/23 16:00 98 Room Air 01/06/23 16:00 68 11 129/74 (92) 97 Room Air 01/06/23 15:00 67 15 146/80 (102) 97 Room Air 01/06/23 14:00 65 13 128/69 (88) 98 Room Air 01/06/23 13:00 65 20 102/60 (74) 98 Room Air 01/06/23 13:00 73 01/06/23 12:00 69 17 108/70 (83) 97 Room Air 01/06/23 12:00 96 Room Air 01/06/23 11:52 36.3 01/06/23 11:00 61 11 89/54 (66) 96 Room Air 01/06/23 10:00 67 23 98/80 (86) 96 Room Air I & O 01/07/23 07:00 Intake Total 1480 ml Output Total 1075 ml Balance 405 ml Height & Weight Height: 5'10.00" Weight: 227lbs. 0.0oz. 102.657031sj; 27.04 BMI Method: General Appearance: No Apparent Distress, WD/WN HEENT: PERRL/EOMI, Pharynx Normal Neck: Normal Inspection, Supple Respiratory: Lungs Clear, No Respiratory Distress Cardiovascular: Regular Rate, Rhythm, No Murmur Capillary Refill: Less Than 3 Seconds Gastrointestinal: normal bowel sounds, non tender Extremity: Normal Inspection, No Pedal Edema Neurologic/Psychiatric: Alert, Normal Mood/Affect Skin: Normal Color, Warm/Dry Results Lab Laboratory Tests 01/05/23 12:00 01/05/23 15:30 01/05/23 16:19 01/05/23 20:05 01/05/23 22:33 01/06/23 00:21 01/06/23 05:10 01/06/23 08:10 01/06/23 13:45 01/06/23 20:00 01/07/23 00:28 01/07/23 04:24 01/07/23 07:46 Assessment/Plan Assessment/Plan 1 HAYDEE RAMÍREZ MD Jan 07, 2023 09:16
[2023-01-07] MEDS ORDERED: SODIUM CHLORIDE 1 GM TABLET PO SCH ×2 (09:30→21:00)
--- NOTE | 2023-01-07 10:06 | Physical Therapy Daily Note ---
PT Daily Note-Current Subjective Pt reports he is feeling stronger. Pain Section J - Health Conditions 1. Rarely or not at all 2. Occasionally 3. Frequently 4. Almost constantly 8. Unable to answer Pain Effect on Sleep: 1 Pain Interference with Therapy: 1 Pain Interference w/Day-to-Day: 1 Transfers SCALE: Activities may be completed with or without assistive devices. 5-Llxmioppia-npntios completes the activity by him/herself with no assistance from a helper. 5-Set-up or Clean-up Assistance-helper sets up or cleans up; patient completes activity. [place] assists only prior to or following the activity. 4-Supervision or Touching Assistance-helper provides verbal cues and/or touching/steadying and/or contact guard assistance as patient completes activity. Assistance may be provided throughout the activity or intermittently. 3-Partial/Moderate Assistance-helper does LESS THAN HALF the effort. [place] lifts, holds or supports trunk or limbs, but provides less than half the effort. 2-Substantial/Maximal Assistance-helper does MORE THAN HALF the effort. [place] lifts or holds trunk or limbs and provides more than half the effort. 2-Adurywoor-fcnfec does ALL the effort. Patient does none of the effort to complete the activity. Or, the assistance of 2 or more helpers is required for the patient to complete the activity. If activity was not attempted, code reason: 7-Patient Refused. 9-Not Applicable-not attempted and the patient did not perform the activity before the current illness, exacerbation or injury. 10-Not Attempted due to Environmental Limitations-(lack of equipment, weather restraints, etc.). 88-Not Attempted due to Medical Conditions or Safety Concerns. Bed mobility Min A Weight Bearing Right Lower Extremity: Right Full Weight Bearing Left Lower Extremity: Left Full Weight Bearing Gait Training Ambulate 500ft with FWW and SBA. Pt was steady with no LOB. Assessment Current Status: Excellent Progress, Good Progress Patient making progress with strength and ambulation stability. PT Jail Goals Jail Goals PT Jail Goals Time Frame: Jan 16, 2023 Roll Left & Right (QC): 6 Sit to Lying (QC): 6 Lying-Sitting on Side/Bed(QC): 6 Sit to Stand (QC): 6 Chair/Trc-ju-Tivlx Xfer(QC): 6 Toilet Transfer (QC): 6 Walk 10 feet (QC): 5 Walk 50ft with 2 Turns (QC): 5 Walk 150 ft (QC): 5 PT Plan Treatment/Plan Treatment Plan: Continue Plan of Care Treatment Plan: Bed Mobility, Education, Functional Activity Lidya, Functional Strength, Gait, Safety, Therapeutic Exercise, Transfers Treatment Duration: Jan 16, 2023 Frequency: 6 times per week Estimated Hrs Per Day: .25 hour per day Patient and/or Family Agrees t: Yes Time Time In: 0800 Time Out: 08 DATE: Jan 07, 2023 Total Billed Treatment Time: 20 Total Billed Treatment visit, gait 20 min BONNIE PUENTES PT Jan 07, 2023 10:06
[2023-01-07] MEDS ORDERED: POT Phosphate/NA Phosphate TABLET PO NR (10:15)
[2023-01-07] MEDS ORDERED: SODIUM CHLORIDE 1 GM TABLET PO NR (10:15)
[2023-01-07] MEDS ORDERED: LIDOCAINE UROJET 2% GEL 10 ML PKG ONE (13:23)
[2023-01-07] MEDS ORDERED: LIDOCAINE UROJET 2% GEL 10 ML PKG TOP ONE (13:30)
[2023-01-07 15:03] VITALS: BP 124/72
--- NOTE | 2023-01-07 16:40 | Progress Note - Hospitalist ---
Subjective HPI/CC On Admission Date Seen by Provider: Jan 07, 2023 Time Seen by Provider: 10:20 Hesham Jones is an 82 year old male with PMH HTN, HLD, CAD s/p CABG, who presented with weakness. He has also been dizzy. He had a fall at home. He has reportedly had low blood pressures. He denies chest pain. He denies shortness of breath. He has no other complaints. Subjective/Events-last exam He is feeling better. He has been able to get up and walk with therapy. He has no complaints. Objective Exam Vital Signs Vital Signs Date Time Temp Pulse Resp B/P (MAP) Pulse Ox O2 Delivery O2 Flow Rate FiO2 01/07/23 15:03 96 Room Air 01/07/23 15:03 36.4 71 18 124/72 (89) Capillary Refill : Less Than 3 Seconds General Appearance: No Apparent Distress, WD/WN Respiratory: Lungs Clear, No Respiratory Distress Cardiovascular: Regular Rate, Rhythm, No Murmur Gastrointestinal: Normal Bowel Sounds, Soft Extremity: Normal Inspection, No Pedal Edema Neurologic/Psychiatric: Alert, Normal Mood/Affect Results/Procedures Lab Laboratory Tests 01/06/23 20:00 01/07/23 00:28 01/07/23 04:24 01/07/23 07:46 Patient resulted labs reviewed. Imaging: Reviewed Imaging Report Assessment/Plan Assessment and Plan Assess & Plan/Chief Complaint Hyponatremia Hypothyroidism Debility Na 128 this morning Stop 3% hypertonic saline Fluid restriction Begin sodium tabs TSH high and T4 undetectable Amiodarone stopped Continue Synthroid PT/OT Transfer to medical floor HTN HLD CAD s/p CABG Continue Imdur and Amlodipine Continue other meds as able DVT prophylaxis: Lovenox Diagnosis/Problems Diagnosis/Problems (1) Hyponatremia Status: Acute (2) Hypothyroidism Status: Acute Qualifiers: Hypothyroidism type: unspecified Qualified Codes: E03.9 - Hypothyroidism, unspecified (3) HTN (hypertension) Status: Chronic (4) HLD (hyperlipidemia) Status: Chronic (5) CAD (coronary artery disease) Status: Chronic (6) S/P CABG (coronary artery bypass graft) Status: Chronic ASHER CHINCHILLA MD Jan 07, 2023 16:40
[2023-01-07] MEDS: ENOXAPARIN 40 MG/0.4 ML SYRINGE SQ SCH (18:12)
[2023-01-07 19:45] VITALS: BP 133/68
[2023-01-07] MEDS: BACLOFEN 10 MG TABLET PO SCH (20:22)
[2023-01-07] MEDS: ISOSORBIDE MONONITRATE 30 MG TABLET PO SCH (20:22)
[2023-01-07] MEDS: carvediloL 3.125 MG TABLET PO SCH (20:22)
[2023-01-07] MEDS ORDERED: AMIODARONE 200 MG TABLET PO SCH (21:00)
[2023-01-07] MEDS ORDERED: DOCUSATE SODIUM 100 MG CAPSULE PO SCH (21:00)
[2023-01-07] MEDS ORDERED: ISOSORBIDE MONONITRATE 30 MG TABLET PO SCH (21:00)
[2023-01-07] MEDS ORDERED: amLODIPine 10 MG TABLET PO SCH (21:00)
[2023-01-07] MEDS ORDERED: BACLOFEN 10 MG TABLET PO SCH (21:00)
[2023-01-07] MEDS: SODIUM CHLORIDE 1 GM TABLET PO SCH (21:53)
[2023-01-08 00:48] VITALS: BP 86/52
[2023-01-08 01:58] VITALS: BP 102/62
[2023-01-08 03:50] VITALS: BP 98/63
[2023-01-08] MEDS: LEVOTHYROXINE 100 MCG TABLET PO SCH (05:29)
[2023-01-08 05:42] LABS: ALBUMIN 3.2 GM/DL (3.2-4.5); BILIRUBIN,TOTAL 0.6 MG/DL (0.1-1.0); CREATININE SERUM 0.86 MG/DL (0.60-1.30); POTASSIUM 4.2 MMOL/L (3.6-5.0); TOTAL PROTEIN 5.1 GM/DL (6.4-8.2)
[2023-01-08 05:55] LABS: BASOPHILS # (AUTO) 0.1 10^3/uL (0.0-0.1); BASOPHILS % (AUTO) 1 % (0-10); EOSINOPHILS # (AUTO) 0.2 10^3/uL (0.0-0.3); EOSINOPHILS % (AUTO) 3 % (0-10); HEMATOCRIT 30 % (40-54); HEMOGLOBIN 10.7 g/dL (13.3-17.7); LYMPHOCYTES # (AUTO) 1.6 10^3/uL (1.0-4.0); LYMPHOCYTES % (AUTO) 21 % (12-44); MEAN CORPUSCULAR HEMOGLOBIN 34 pg (25-34); MEAN CORPUSCULAR HGB CONC 35 g/dL (32-36); MEAN CORPUSCULAR VOLUME 95 fL (80-99); MEAN PLATELET VOLUME 10.2 fL (9.0-12.2); MONOCYTES # (AUTO) 0.6 10^3/uL (0.0-1.0); MONOCYTES % (AUTO) 8 % (0-12); NEUTROPHILS # (AUTO) 5.2 10^3/uL (1.8-7.8); NEUTROPHILS % (AUTO) 67 % (42-75); PLATELET COUNT 175 10^3/uL (130-400); WHITE BLOOD COUNT 7.7 10^3/uL (4.3-11.0)
[2023-01-08 07:26] VITALS: BP 124/65
[2023-01-08] MEDS ORDERED: ASPIRIN enteric coated 81MG TABLET PO SCH (09:00)
[2023-01-08] MEDS ORDERED: LOSARTAN 100 MG TABLET PO SCH (09:00)
[2023-01-08] MEDS: DULoxetine 30 MG CAPSULE PO SCH (09:27)
[2023-01-08] MEDS: SODIUM CHLORIDE 1 GM TABLET PO SCH (09:27)
[2023-01-08] MEDS: carvediloL 3.125 MG TABLET PO SCH (09:27)
[2023-01-08] MEDS: DOCUSATE SODIUM 100 MG CAPSULE PO SCH (09:27)
--- NOTE | 2023-01-08 09:56 | Occupational Ther Daily Note ---
OT Current Status-Daily Note Subjective Asleep in bed, easily aroused, agreeable to shower. Pain Numeric Pain Scale: 0-No Pain Mental Status/Objective Patient Orientation: Person, Confused (poor safety awareness and problem solving), Time Attachments: IV (port only) RN to proceed w/ straight cath vs Mcgee, patient unable to void ADL-Treatment Ambulated to bathroom w/ min assit for navigation of FWW and 30% VCs for direction and purpose of tasks Therapy Code Descriptions/Definitions Functional [place] Measure: 0=Not Assessed/NA 4=Minimal Assistance 1=Total Assistance 5=Supervision or Setup 2=Maximal Assistance 6=Modified [place] 3=Moderate Assistance 7=Complete IndependenceSCALE: Activities may be completed with or without assistive devices. 4-Wbpfyufaku-lhpcbva completes the activity by him/herself with no assistance from a helper. 5-Set-up or Clean-up Assistance-helper sets up or cleans up; patient completes activity. [place] assists only prior to or following the activity. 4-Supervision or Touching Assistance-helper provides verbal cues and/or touching/steadying and/or contact guard assistance as patient completes activity. Assistance may be provided throughout the activity or intermittently. 3-Partial/Moderate Assistance-helper does LESS THAN HALF the effort. [place] lifts, holds or supports trunk or limbs, but provides less than half the effort. 2-Substantial/Maximal Assistance-helper does MORE THAN HALF the effort. [place] lifts or holds trunk or limbs and provides more than half the effort. 9-Xtehxeczp-apkrhv does ALL the effort. Patient does none of the effort to complete the activity. Or, the assistance of 2 or more helpers is required for the patient to complete the activity. If activity was not attempted, code reason: 7-Patient Refused. 9-Not Applicable-not attempted and the patient did not perform the activity before the current illness, exacerbation or injury. 10-Not Attempted due to Environmental Limitations-(lack of equipment, weather restraints, etc.). 88-Not Attempted due to Medical Conditions or Safety Concerns. Bathing Location: L Arm, R Arm, L Upper Leg, R Upper Leg, L Lower Leg (including foot) (OT performed), R Lower Leg (including foot) (OT performed), Chest, Abdomen, Buttocks, Perineal Area (OT assisted w/ standing transfer) Shower/Bathe Self (QC): 3 Upper Body Dressing (QC): 3 (hospital gown) Lower Body Dressing (QC): 7 (no brief d/t RN request) On/Off Footwear: 2 Toileting Hygiene (QC): 2 Toilet Transfer (QC): 3 Education OT Patient Education: Correct positioning, Energy conservation, Modified ADL techniques, Progress toward Goal/Update tx plan, Purpose of tx/functional activities, Reviewed precautions, Rehab process, Safety issues, Transfer techniques, Use of adapted equipment Teaching Recipient: Patient Teaching Methods: Demonstration, Discussion Response to Teaching: Reinforcement Needed OT Mcfp Goals Mcfp Goals Eating (QC): 6 Oral Hygiene (QC): 6 Toileting Hygiene (QC): 6 Shower/Bathe Self (QC): 6 Upper Body Dressing (QC): 6 Lower Body Dressing (QC): 6 On/Off Footwear (QC): 6 1=Demonstrate adherence to instructed precautions during ADL tasks. 2=Patient will verbalize/demonstrate understanding of assistive devices/modifications for ADL. 3=Patient will improve strength/tolerance for activity to enable patient to perform ADL's. OT Education/Plan Problem List/Assessment Assessment: Decreased Activ Tolerance, Decreased Safety Aware, Decreased UE Strength, Impaired Cognition, Impaired Self-Care Skills Discharge Recommendations Plan/Recommendations: Continue POC Treatment Plan/Plan of Care Treatment,Training & Education: Yes Patient would benefit from OT for education, treatment and training to promote independence in ADL's, mobility, safety and/or upper extremity function for ADL's. Plan of Care: ADL Retraining, Functional Mobility, Group Exercise/Act as Ind, UE Funct Exercise/Act Treatment Duration: Jan 08, 2023 Frequency: 3 times per week (3-5 times per week) Agreement: Yes Rehab Potential: Fair Up in recliner, all needs met Time Start Time: 09:10 Stop Time: 09:30 DATE: Jan 08, 2023 Total Time Billed (hr/min): 20 Billed Treatment Time ADL 20 min WENDY CHRISTENSEN OT Jan 08, 2023 09:56
--- NOTE | 2023-01-08 10:24 | Physical Therapy Daily Note ---
PT Daily Note-Current Subjective No complaints voiced prior to treatment. Pt did note shortness of breath by the end of gait. Pain Section J - Health Conditions 1. Rarely or not at all 2. Occasionally 3. Frequently 4. Almost constantly 8. Unable to answer Pain Effect on Sleep: 1 Pain Interference with Therapy: 1 Pain Interference w/Day-to-Day: 1 Mental Status Patient Orientation: Person, Place, Time, Situation Transfers SCALE: Activities may be completed with or without assistive devices. 7-Hfycomdadd-vbxagyi completes the activity by him/herself with no assistance from a helper. 5-Set-up or Clean-up Assistance-helper sets up or cleans up; patient completes activity. [place] assists only prior to or following the activity. 4-Supervision or Touching Assistance-helper provides verbal cues and/or touching/steadying and/or contact guard assistance as patient completes activity. Assistance may be provided throughout the activity or intermittently. 3-Partial/Moderate Assistance-helper does LESS THAN HALF the effort. [place] lifts, holds or supports trunk or limbs, but provides less than half the effort. 2-Substantial/Maximal Assistance-helper does MORE THAN HALF the effort. [place] lifts or holds trunk or limbs and provides more than half the effort. 7-Uhcanqhga-vbskpu does ALL the effort. Patient does none of the effort to complete the activity. Or, the assistance of 2 or more helpers is required for the patient to complete the activity. If activity was not attempted, code reason: 7-Patient Refused. 9-Not Applicable-not attempted and the patient did not perform the activity before the current illness, exacerbation or injury. 10-Not Attempted due to Environmental Limitations-(lack of equipment, weather restraints, etc.). 88-Not Attempted due to Medical Conditions or Safety Concerns. Roll Left & Right (QC): 5 Sit to Lying (QC): 5 Lying to Sitting/Side of Bed(Q: 5 Sit to Stand (QC): 5 Chair/Onj-xr-Lkbvz Xfer(QC): 5 Weight Bearing Right Lower Extremity: Right Full Weight Bearing Left Lower Extremity: Left Full Weight Bearing Gait Training Does the Patient Walk?: Yes Distance: 500ft Gait Persons Needed: 1 Gait Assistive Device: FWW Even step length and correct heel/toe pattern. Wheelchair Training Does the Pt Use a Wheelchair?: No Exercises Supine Ex: LE Protocol Supine Reps: 15 Assessment Current Status: Good Progress Good safety with gait and (I) with supine ex. PT [facility] Goals [facility] Goals PT [place] Goals Time Frame: Jan 16, 2023 Roll Left & Right (QC): 6 Sit to Lying (QC): 6 Lying-Sitting on Side/Bed(QC): 6 Sit to Stand (QC): 6 Chair/Fnc-gh-Kasvk Xfer(QC): 6 Toilet Transfer (QC): 6 Walk 10 feet (QC): 5 Walk 50ft with 2 Turns (QC): 5 Walk 150 ft (QC): 5 PT Plan Treatment/Plan Treatment Plan: Continue Plan of Care Treatment Plan: Bed Mobility, Education, Functional Activity Lidya, Functional Strength, Gait, Safety, Therapeutic Exercise, Transfers Treatment Duration: Jan 16, 2023 Frequency: 6 times per week Estimated Hrs Per Day: .25 hour per day Patient and/or Family Agrees t: Yes Time Time In: 932 Time Out: 947 DATE: Jan 08, 2023 Total Billed Treatment Time: 15 Total Billed Treatment 1, gt 15 SERINA MENDOZA PT Jan 08, 2023 10:24
[2023-01-08 12:00] VITALS: BP 101/58
[2023-01-08] MEDS ORDERED: LEVO100T PO (12:30)
[2023-01-08] MEDS ORDERED: NF-NACL1GT PO (12:30)
[2023-01-08] MEDS ORDERED: TMSL.4C PO (12:30)
--- NOTE | 2023-01-08 13:29 | D/C HH Face to Face Order ---
D/C Face to Face Orders Instructions for Patient Via [facility], Patient Instructions/FollowUp: Take medications as prescribed. Follow up with Dr. Richardson in about a week. Return with worsening pain, trouble breathing, or if you feel like you are getting worse. Physician to follow Patient: Debra Discharge Diet for Home: No Restrictions Patient Data-Allergies,Ht & Wt Patient Allergies: Coded Allergies: erythromycin base (Verified Allergy, Mild, 12/09/22) Height (Feet): 5 Height (Inches): 10.00 Weight (Pounds): 227 Weight (Ounces): 0.0 Home Health Need/Face to Face Date of Face to Face: Jan 08, 2023 Clinical Findings: Generalized weakness and fatigue, Instability, Muscle weakness I have seen Pt [id number]-[id number]: Yes Discharged To: Home Diagnosis/Conditions: HTN HLD CAD Hyponatremia Urinary retention Problems/Diagnosis/Condition: (1) Urinary retention (2) Hyponatremia (3) HLD (hyperlipidemia) (4) HTN (hypertension) (5) CAD (coronary artery disease) (6) Hypothyroidism Patient is Homebound due to: Marcus fall risk due to instabilty, Muscle weakness Homebound Status Due to the above stated illness, injury or surgical procedure (medical condition or diagnosis) and associated clinical findings, the patient is homebound because of his/her inability to leave home except with aid of a supportive device and/or person AND leaving the home requires a considerable and taxing effort or is medically contraindicated. Pt req the following assistanc: Aid of another person Home Health Nursing Orders Home Health Services Order: Nursing Services, [employer]-Evaluate & Treat, Physical Therapy-Evaluate & Treat Home Health Infusion Therapy Line Start Date: Jan 04, 2023 Therapy Orders Therapy Orders: OT (must have SN or PT order), Physical Therapy Therapy Specific Orders: Eval assistive deivces, Teach enviro modifications/safety, Gait training, Increase strength/endurance Certify Stmt I certify that this patient is under my care and that I, a nurse practitioner or a physician; a statistical assistant working with me, had a face to face encounter that - meets the physician face to face encounter requirements with this patient as dated. ASHER CHINCHILLA MD Jan 08, 2023 13:29
[2023-01-08] MEDS ORDERED: LIDOCAINE UROJET 2% GEL 10 ML PKG ONE (13:30)
[2023-01-08 15:12] VITALS: BP 101/58
[2023-01-08] MEDS ORDERED: LIDOCAINE UROJET 2% GEL 10 ML PKG TOP ONE (16:30)
--- NOTE | 2023-01-08 17:00 | Discharge Summary ---
Discharge Summary Hospital Course Problems/Dx: (1) Hyponatremia Status: Acute (2) Hypothyroidism Status: Acute Qualifiers: Qualified Codes: E03.9 - Hypothyroidism, unspecified (3) HTN (hypertension) Status: Chronic (4) HLD (hyperlipidemia) Status: Chronic (5) CAD (coronary artery disease) Status: Chronic (6) S/P CABG (coronary artery bypass graft) Status: Chronic (7) Urinary retention Status: Acute Hospital Course Date of Admission: Jan 03, 2023 at 19:00 Admission Diagnosis : Hyponatremia Family Physician/Provider: Loni Virk MD Date of Discharge: 01/08/23 Discharge Diagnosis: Hyponatremia, hypothyroidism, urinary retention Hospital Course: Hesham Jones is an 82 year old male who presented with weakness and was admitted with severe hyponatremia. He required admission to the ICU and treatment with hypertonic saline. His sodium slowly increased. He was started on sodium chloride tablets and his sodium levels stabilized. His sodium was 127 on discharge. He will need follow up BMP next week. He was also found to have newly diagnosed hypothyroidism. His amiodarone was stopped. He was started on Synthroid. He will need a repeat TSH in 4-6 weeks to assess his response. He also had issues with urinary retention and required straight cath several times. A bello was placed. He was started on Flomax. He should follow up with Dr. Virk in about a week for hospital follow up, repeat labs, and possibly to attempt bello removal. He may require referral to Urology. He worked with therapy and was deemed safe and independent. He was concerned about his strength and home health was set up for ongoing therapy. He was discharged home in improved, fair condition. Labs and Pending Lab Test: Laboratory Tests 01/07/23 17:11: Sodium Level 126L 01/08/23 04:49: Sodium Level 127L, White Blood Count 7.7, Red Blood Count 3.18L, Hemoglobin 10.7L, Hematocrit 30L, Mean Corpuscular Volume 95, Mean Corpuscular Hemoglobin 34, Mean Corpuscular Hemoglobin Concent 35, Red Cell Distribution Width 13.4, Platelet Count 175, Mean Platelet Volume 10.2, Immature Granulocyte % (Auto) 1, Neutrophils (%) (Auto) 67, Lymphocytes (%) (Auto) 21, Monocytes (%) (Auto) 8, Eosinophils (%) (Auto) 3, Basophils (%) (Auto) 1, Neutrophils # (Auto) 5.2, Lymphocytes # (Auto) 1.6, Monocytes # (Auto) 0.6, Eosinophils # (Auto) 0.2, Basophils # (Auto) 0.1, Immature Granulocyte # (Auto) 0.1, Potassium Level 4.2, Chloride Level 96L, Carbon Dioxide Level 25, Anion Gap 6, Blood Urea Nitrogen 13, Creatinine 0.86, Estimat Glomerular Filtration Rate 88, BUN/Creatinine Ratio 15, Glucose Level 88, Calcium Level 8.0L, Corrected Calcium 8.6, Magnesium Level 2.0, Total Bilirubin 0.6, Aspartate Amino Transf (AST/SGOT) 29, Alanine Aminotransferase (ALT/SGPT) 37, Alkaline Phosphatase 35L, Total Protein 5.1L, Albumin 3.2 Microbiology 01/03/23 MRSA Screen - Final, Complete MRSA not isolated Home Meds Active Flomax (Tamsulosin HCl) 0.4 Mg Cap 0.8 Mg PO DAILY 30 Days Synthroid (Levothyroxine Sodium) 100 Mcg Tablet 100 Mcg PO DAILY@0630 30 Days Sodium Chloride 1,000 Mg Tablet.elaina 2 Gm PO BID 30 Days Reported Vitamin D3 (Cholecalciferol (Vitamin D3)) 50 Mcg (2000 Unit) Capsule 50 Mcg PO DAILY Afrin (Oxymetazoline HCl) 0.05 % Amidon 1-2 Sprays NSEACH TID PRN Isosorbide Mononitrate ER (Isosorbide Mononitrate) 30 Mg Tab.er.24h 30 Mg PO HS Baclofen 10 Mg Tablet 10 Mg PO HS Potassium Chloride 20 Meq Tablet.er 20 Meq PO BID Atorvastatin Calcium 40 Mg Tablet 40 Mg PO HS Aspirin EC (Aspirin) 81 Mg Tablet.dr 81 Mg PO DAILY Stool Softener (Docusate Sodium) 100 Mg Capsule 100 Mg PO BID Assessment/Pt Instructions see instructions Discharge Planning: >30 minutes discharge planning Discharge Instructions Discharge Diet: No Restrictions Activity as Tolerated: Yes Discharge Physical Examination Vital Signs Vital Signs Date Time Temp Pulse Resp B/P (MAP) Pulse Ox O2 Delivery O2 Flow Rate FiO2 01/08/23 15:12 36.1 69 18 101/58 99 Room Air General Appearance: No Apparent Distress, WD/WN Respiratory: Lungs Clear, No Respiratory Distress Cardiovascular: Regular Rate, Rhythm, No Murmur Gastrointestinal: Normal Bowel Sounds, Soft Extremity: Normal Inspection, No Pedal Edema Skin: Normal Color, Warm/Dry Neurologic/Psychiatric: Alert, Normal Mood/Affect Allergies: Coded Allergies: erythromycin base (Verified Allergy, Mild, 12/09/22) Copy Copies To 1: LONI VIRK MD Discharge Summary Date of Admission Jan 03, 2023 at 19:00 Date of Discharge Jan 08, 2023 at 16:47 Discharge Date: Jan 08, 2023 Discharge Time: 16:47 Admission Diagnosis Hyponatremia Discharge Diagnosis Hyponatremia Hypothyroidism Debility Urinary retention HTN HLD CAD s/p CABG (1) Hyponatremia Status: Acute (2) Hypothyroidism Status: Acute Qualifiers: Qualified Codes: E03.9 - Hypothyroidism, unspecified (3) HTN (hypertension) Status: Chronic (4) HLD (hyperlipidemia) Status: Chronic (5) CAD (coronary artery disease) Status: Chronic (6) S/P CABG (coronary artery bypass graft) Status: Chronic (7) Urinary retention Status: Acute ASHER CHINCHILLA MD Jan 08, 2023 16:57
[2023-01-08] MEDS ORDERED: TAMSULOSIN 0.4 MG (FLOMAX) CAP PO SCH (18:00)
== END 2023-01-08 16:47 | disposition home health service (06) | DRG 641 ==
LOC: EDUNIT# 14:04 → ER 14:06 → ICU 19:00 → 4TH 01-07 14:24
PROVIDERS: ADMIT Internal Medicine; ATTEND Internal Medicine
DX: E87.1 Hypo-osmolality and hyponatremia (principal); E03.9 Hypothyroidism, unspecified; I10 Essential (primary) hypertension; E78.5 Hyperlipidemia, unspecified; I25.10 Atherosclerotic heart disease of native coronary artery without angina pectoris; R33.9 Retention of urine, unspecified; Z95.1 Presence of aortocoronary bypass graft; Z85.820 Personal history of malignant melanoma of skin; Z79.82 Long term (current) use of aspirin; Z79.899 Other long term (current) drug therapy
CPT/HCPCS: 36415; 36569; 70450; 76937; 80048; 80053; 81000; 82533; 83735; 84100; 84295; 84439; 84443; 84484; 85025; 86141; 87081; 93005